=== PATIENT | female | born 1955 | race Caucasian/White ===

== ENCOUNTER 2016-11-04 18:55 | Inpatient (IN) | payer MEDICARE, MEDICAID ==
[~2016-11-04] VITALS: Ht 162.6 cm; Wt 75.7 kg
[~2016-11-04 18:55] MED LIST: AMLO5TAB2 PO; ARIP1TAB11 PO; CLON0.5T PO; GABA300C5 PO; IBUP-232 PO; LAMO100T PO; LANTINJ SQ; LEVO50TA4 PO; LOPE2TAB3 PO; LOSA50TA PO; METO25TA3 PO; OMEP20TA PO; PRAV20TA2 PO; TOPA50TA7 PO; TRAM50TA PO; VICT18IN SQ; ZOFR4TAB3 SL
[2016-11-04 19:01] VITALS: BP 89/64; PULSE 89; RESP 20; TEMP 99.1; O2SAT 97
[2016-11-04] MEDS ORDERED: SODIUM CHLOR 0.9% 1000 ML INJ 1,000 ML IV ONE ×2 (19:30→20:00)
[2016-11-04] MEDS ORDERED: ONDANSETRON HCL 4 MG/2 ML VIAL IV PUSH ONE (19:30)
--- NOTE | 2016-11-04 19:36 | PD ---
HPI Chief Complaint: GI Complaint Time Seen by Provider: 19:15 Travel History International Travel<30 days: No Contact w/Intl Traveler<30days: No History of Present Illness HPI This 59-year-old female is complaining of vomiting and diarrhea. She has a history of gastroparesis and she thinks that this acting up. She has a history of diabetes. She also has history of bipolar his she says she's had about 5 bouts of diarrhea today. He has had several admissions for gastroparesis. She sees Dr. Trinity ROSADO Past Medical History Arthritis: Yes (JOINTS) Asthma: Yes Autoimmune Disease: No Blood Disorders: No Bipolar Disorder: Yes Anxiety: Yes Depression: Yes Heart Rhythm Problems: No Cancer: No Cardiac Catheterization: Yes Cardiovascular Problems: Yes High Cholesterol: Yes Chemotherapy: No Chest Pain: No Congestive Heart Failure: No COPD: No Cerebrovascular Accident: Yes (CVA R 1997) Coronary Artery Disease: Yes Diabetes: Yes Diminished Hearing: No Endocrine: Yes Gastrointestinal Disorders: Yes GERD: Yes Genitourinary: No Headaches: Yes (DAILY) Hepatitis: No Hiatal Hernia: Yes Heparin Induced Thrombocytopen: No Hypertension: Yes Immune Disorder: No Implanted Vascular Access Dvce: No Kidney Stones: Yes (PASSED 2, 2 EXTRACTED) Musculoskeletal: Yes Neurologic: Yes (DIABETIC COMA, DRANK 3 GALLONS ORANGE JUICE) Psychiatric: Yes Reproductive: No Respiratory: Yes (OCC INHALER USE) Immunizations Current: Yes (SHINGLES) Migraines: No Myocardial Infarction: No Radiation Therapy: No Renal Failure: No Seizures: No Sickle Cell Disease: No Sleep Apnea: No Thyroid Disease: Yes Ulcer: No Menopausal: Yes Past Surgical History Abdominal Surgery: Yes (UMBILICAL HERNIA REPAIR,CHOLECYSTECTOMY) AICD: No Arteriovenous Shunt: No Cardiac Surgery: No Cholecystectomy: Yes Ear Surgery: No Endocrine Surgery: No Eye Surgery: Yes Genitourinary Surgery: Yes (2 KIDNEY STONE EXTRACTIONS) Gynecologic Surgery: Yes (HYSTERECTOMY) Hysterectomy: Yes Insulin Pump: No Joint Replacement: No Neurologic Surgery: No Oral Surgery: No Pacemaker: No Thoracic Surgery: No Other Surgery: Yes Social History Alcohol Use: No (DENIES) Tobacco Use: Yes Substance Use: No Allergies-Medications (Allergen,Severity, Reaction): Coded Allergies: Codeine (Verified Allergy, Intermediate, HIVES, 11/04/16) Prednisone (Verified Adverse Reaction, Severe, 11/04/16) INCREASES BLOOD GLUCOSE Reported Meds & Prescriptions Reported Meds & Active Scripts Active Lantus Solostar Pen Inj (Insulin Glargine) 300 Unit/3 Ml Pen 50 Units SQ HS Tramadol (Tramadol HCl) 50 Mg Tab 1-3 Tab PO Q8H PRN Take 1-3 tablets at night as needed for pain. Before physical therapy, take 2-3 tablets to prevent pain during therapy. No more than 6 tablets in 24 hours. Loperamide (Loperamide HCl) 2 Mg Tab 2 Mg PO DIRECTED PRN One tablet after each loose stool. Not to exceed 8 tablets per day. Zofran Odt (Ondansetron Odt) 4 Mg Tab 4 Mg SL Q8HR PRN May substitute non-ODT form. Reported Victoza Inj (Liraglutide Inj) 18 Mg/3 Ml Pen 1.8 Mg SQ DAILY Amlodipine (Amlodipine Besylate) 5 Mg Tab 5 Mg PO DAILY Metoprolol Tartrate 25 Mg Tab 0.5 Tab PO BID Topamax (Topiramate) 50 Mg Tab 50 Mg PO BID Lamotrigine 100 Mg Tab 100 Mg PO DAILY Gabapentin 300 Mg Cap 300 Mg PO TID Levothyroxine (Levothyroxine Sodium) 50 Mcg Tab 50 Mcg PO DAILY Pravastatin 20 Mg Tab 20 Mg PO DAILY Losartan (Losartan Potassium) 50 Mg Tab 50 Mg PO DAILY Omeprazole 20 Mg Tab 20 Mg PO DAILY Aripiprazole 5 Mg Tab 5 Mg PO DAILY Review of Systems General / Constitutional: No: Fever, Chills Eyes: No: Diploplia HENT: No: Headaches, Vertigo Cardiovascular: No: Chest Pain or Discomfort Respiratory: No: Cough Gastrointestinal: Positive: Nausea, Vomiting, Diarrhea, Abdominal Pain Genitourinary: No: Frequency Skin: No Rash Physical Exam Narrative GENERAL: Well-developed female SKIN: Warm and dry. HEAD: Atraumatic. Normocephalic. EYES: Pupils equal and round. No scleral icterus. No injection or drainage. ENT: No nasal bleeding or discharge. Mucous membranes pink and moist. NECK: Trachea midline. No JVD. CARDIOVASCULAR: Regular rate and rhythm. No murmur appreciated. RESPIRATORY: No accessory muscle use. Clear to auscultation. Breath sounds equal bilaterally. GASTROINTESTINAL: Abdomen soft, there is mild distention. There is some tenderness without guarding. Bowel sounds are diminished MUSCULOSKELETAL: No obvious deformities. No clubbing. No cyanosis. No edema. NEUROLOGICAL: Awake and alert. No obvious cranial nerve deficits. Motor grossly within normal limits. Normal speech. PSYCHIATRIC: Appropriate mood and affect; insight and judgment normal. Data Data Last Documented VS Vital Signs Date Time Temp Pulse Resp B/P Pulse Ox O2 Delivery O2 Flow Rate FiO2 11/04/16 20:40 14 11/04/16 19:26 97 Room Air 11/04/16 19:01 99.1 89 89/64 Orders Complete Blood Count With Diff (11/04/16 19:21) Comprehensive Metabolic Panel (11/04/16 19:21) Urinalysis - C+S If Indicated (11/04/16 19:21) Sodium Chlor 0.9% 1000 Ml Inj (Ns 1000 M (11/04/16 19:30) Ondansetron Inj (Zofran Inj) (11/04/16 19:30) Sodium Chlor 0.9% 1000 Ml Inj (Ns 1000 M (11/04/16 20:00) Hydromorphone Pf Inj (Dilaudid Pf Inj) (11/04/16 20:00) Prochlorperazine Inj (Compazine Inj) (11/04/16 20:15) Lipase (11/04/16 19:35) Ct Abd/Pel W/O Iv Contrast (11/04/16 20:03) Labs Laboratory Tests Test 11/04/16 11/04/16 19:35 22:14 White Blood Count 7.8 TH/MM3 Red Blood Count 4.10 MIL/MM3 Hemoglobin 10.9 GM/DL Hematocrit 33.9 % Mean Corpuscular Volume 82.7 FL Mean Corpuscular Hemoglobin 26.6 PG Mean Corpuscular Hemoglobin 32.2 % Concent Red Cell Distribution Width 13.3 % Platelet Count 142 TH/MM3 Mean Platelet Volume 9.6 FL Neutrophils (%) (Auto) 73.8 % Lymphocytes (%) (Auto) 20.1 % Monocytes (%) (Auto) 2.1 % Eosinophils (%) (Auto) 3.7 % Basophils (%) (Auto) 0.3 % Neutrophils # (Auto) 5.7 TH/MM3 Lymphocytes # (Auto) 1.6 TH/MM3 Monocytes # (Auto) 0.2 TH/MM3 Eosinophils # (Auto) 0.3 TH/MM3 Basophils # (Auto) 0.0 TH/MM3 CBC Comment DIFF FINAL Differential Comment Sodium Level 140 MEQ/L Potassium Level 4.0 MEQ/L Chloride Level 108 MEQ/L Carbon Dioxide Level 23.2 MEQ/L Anion Gap 9 MEQ/L Blood Urea Nitrogen 15 MG/DL Creatinine 1.40 MG/DL Estimat Glomerular Filtration 38 ML/MIN Rate Random Glucose 242 MG/DL Calcium Level 8.9 MG/DL Total Bilirubin 0.3 MG/DL Aspartate Amino Transf 30 U/L (AST/SGOT) Alanine Aminotransferase 36 U/L (ALT/SGPT) Alkaline Phosphatase 140 U/L Total Protein 7.0 GM/DL Albumin 3.4 GM/DL Lipase 262 U/L Urine pH 7.5 Urine Protein NEG mg/dL Urine Glucose (UA) 100 mg/dL Urine Ketones NEG mg/dL Urine Occult Blood NEG Urine Nitrite POS Urine Bilirubin NEG Urine Leukocyte Esterase MOD MDM Medical Decision Making Medical Screen Exam Complete: Yes Emergency Medical Condition: Yes Medical Record Reviewed: Yes Differential Diagnosis Differential includes gastroparesis, ileus, bowel obstruction Narrative Course CT is read as showing minimal dilatation of proximal small bowel relative to distal without evidence of obstruction. This is consistent with mild ileus patient is given IV fluids and symptomatic treatment. She is still complaining of nausea and pain. Diagnosis Primary Impression: Gastroparesis Additional Impression: Ileus Admitting Information Admitting Physician Requests: Peter Gutierrez MD Nov 04, 2016 19:36
[2016-11-04 19:41] LABS: AUTOMATED NEUTROPHIL # 5.7 TH/MM3 (1.8-7.7); BASOPHIL % 0.3 % (0.0-2.0); EOSINOPHIL # 0.3 TH/MM3 (0-0.4); EOSINOPHIL % 3.7 % (0.0-4.0); HEMATOCRIT 33.9 % (35.0-46.0); HEMO FLAGS DIFF FINAL; LYMPH % 20.1 % (9.0-44.0); LYMPHOCYTE # 1.6 TH/MM3 (1.0-4.8); MEAN CELL VOLUME 82.7 FL (80.0-100.0); MEAN CORPUSCULAR HEMOGLOBIN 26.6 PG (27.0-34.0); MEAN CORPUSCULAR HGB CONC 32.2 % (32.0-36.0); MONO % 2.1 % (0.0-8.0); NEUT % 73.8 % (16.0-70.0); PLATELET COUNT 142 TH/MM3 (150-450); RED CELL DISTRIBUTION WIDTH 13.3 % (11.6-17.2); WHITE BLOOD COUNT 7.8 TH/MM3 (4.0-11.0)
[2016-11-04 19:50] LABS: CHLORIDE 108 MEQ/L (98-107); SODIUM (NA) 140 MEQ/L (136-145)
[2016-11-04 19:53] LABS: ANION GAP 9 MEQ/L (5-15); BICARBONATE 23.2 MEQ/L (21.0-32.0); BLOOD UREA NITROGEN 15 MG/DL (7-18)
[2016-11-04 19:56] LABS: ALT (GPT) 36 U/L (10-53); AST (GOT) 30 U/L (15-37); GLOMERULAR FILTRATION RATE 38 ML/MIN (>89)
[2016-11-04 19:58] LABS: TOTAL BILIRUBIN ADULT 0.3 MG/DL (0.2-1.0)
[2016-11-04 19:59] LABS: ALKALINE PHOSPHATASE 140 U/L (45-117)
[2016-11-04] MEDS ORDERED: HYDROmorphone HCL PF 1 MG/ML VIAL IV PUSH ONE (20:00)
[2016-11-04] MEDS ORDERED: PROCHLORPERAZINE INJ 10 MG/2 ML VIAL IVS ONE (20:15)
[2016-11-04 21:30] VITALS: PULSE 86; RESP 15; O2SAT 94
--- NOTE | 2016-11-04 22:25 | RADHPO ---
EXAM DATE/TIME: 11/04/2016 20:58 [facility] COMPARISON: No previous studies available for comparison. INDICATIONS : Vomiting and diarrhea. ORAL CONTRAST: No oral contrast ingested. RADIATION DOSE: 23.96 CTDIvol (mGy) MEDICAL HISTORY : Gastroparesis. Hernia, hiatal. Gastroesophageal reflux disease.Diabetes. Hypertension. Renal stones. SURGICAL HISTORY : Umbilical hernia repair. Cholecystectomy. ENCOUNTER: Initial ACUITY: 1 day PAIN SCALE: 6/10 LOCATION: Abdomen. TECHNIQUE: Volumetric scanning of the abdomen and pelvis was performed. Using automated exposure control and ad justment of the mA and/or kV according to patient size, radiation dose was kept as low as reasonably achievable to obtain optimal diagnostic quality images. FINDINGS: There is dependent atelectasis at both lung bases. No acute findings in the liver, spleen, adrenals, kidneys or pancreas. Previous cholecystectomy. Left renal cortical atrophy. There is previous ventral hernia repair in the anterior abdominal wall. Minimal dilatation of proximal small bowel relative to distal this could be an ileus. No definite obstruction. No free air or free fluid. CONCLUSION: 1. Minimal dilatation of proximal small bowel relative to distal but without definite evidence for ob struction. This could be a mild ileus. No free fluid or free air. Previous ventral hernia repair. Jim Hwang MD on November 04, 2016 at 22:19 Board Certified Radiologist. This report was verified electronically.
[2016-11-04 22:28] LABS: BLOOD, URINE NEG (NEG); GLUCOSE,URINE 100 mg/dL (NEG); KETONE, URINE NEG (NEG); PH, URINE 7.5 (5.0-8.5)
[2016-11-04 22:29] LABS: NITRITE,URINE POS (NEG)
[2016-11-04 22:34] LABS: BACTERIA, URINE MOD /hpf; COMMENT (UR) CULTURE INDICATED; CULTURE IF INDICATED CULTURE INDICATED; METHOD OF COLLECTION VOIDED; URINE COLOR YELLOW (YELLW/STRAW)
[2016-11-04] MEDS: SODIUM CHLOR 0.9% 1000 ML INJ 1,000 ML IV SCH (23:45)
[2016-11-04] MEDS ORDERED: METOCLOPRAMIDE HCL 10 MG/2 ML VIAL IV PUSH ONE (23:45)
[2016-11-05] VITALS (8 sets, daily range): BP systolic 84–100; BP diastolic 56–66; PULSE 74–90; RESP 15–20; TEMP 97.1–98.9; O2SAT 91–97
[2016-11-05] MEDS ORDERED: ONDANSETRON HCL 4 MG/2 ML VIAL IV PUSH PRN
[2016-11-05] MEDS: ERYTHROMYCIN IV SCH ×5 (00:32→23:34)
[2016-11-05] MEDS: SODIUM CHLOR 0.9% IV SCH ×5 (00:32→23:34)
[2016-11-05] MEDS: traMADol HCL 50 MG TAB PO PRN (01:18)
[2016-11-05] MEDS: MORPHINE SULFATE 4 MG/ML INJ IV PRN ×4 (02:40→22:17)
[2016-11-05] MEDS: SODIUM CHLOR 0.9% 1000 ML INJ 1,000 ML IV SCH ×4 (04:45→21:09)
[2016-11-05] MEDS: LEVOTHYROXINE SODIUM 50 MCG TAB PO SCH (06:03)
[2016-11-05] MEDS: GABAPENTIN 300 MG CAP PO SCH ×3 (07:13→17:16)
[2016-11-05] MEDS: METOPROLOL TARTRATE 25 MG TAB PO SCH ×3 (07:14→23:34)
[2016-11-05] MEDS: amLODIPine BESYLATE 5 MG TAB PO SCH (07:14)
[2016-11-05] MEDS: LOSARTAN 50 MG TAB PO SCH (07:14)
[2016-11-05] MEDS: TOPIRAMATE 25 MG TAB PO SCH ×2 (07:14→23:27)
[2016-11-05] MEDS: lamoTRIgine 100 MG TAB PO SCH (07:14)
[2016-11-05] MEDS: PANTOPRAZOLE SOD 20 MG DELAYED RELEASE TAB PO SCH (07:14)
[2016-11-05] MEDS: PRAVASTATIN SOD 20 MG TAB PO SCH (07:15)
[2016-11-05] MEDS ORDERED: LIRAGLUTIDE 1.8 MG SQ SCH (09:00)
[2016-11-05] MEDS ORDERED: LEVOFLOXACIN 500 MG PREMIX INJ 100 ML IV ONE (10:00)
[2016-11-05] MEDS: ARIPiprazole 5 MG TAB PO SCH (10:20)
[2016-11-05] MEDS ORDERED: PROMETHAZINE HCL 25 MG SUPP RECTAL PRN (11:00)
[2016-11-05 13:25] LABS: TRANSFERRIN IRON PROFILE 219 MG/DL (200-360)
[2016-11-05 13:26] LABS: FERRITIN 55 NG/ML (8-252)
[2016-11-05] MEDS: ONDANSETRON HCL 4 MG/2 ML VIAL IV PUSH SCH ×2 (14:00→22:16)
--- NOTE | 2016-11-05 14:06 | MH ---
cc: CJ CHAVZE MD DATE OF ADMISSION: 11/05/2016 DATE OF : 1955, AGE 61 CHIEF COMPLAINT Abdominal pain, nausea, vomiting, diarrhea. HISTORY OF PRESENT ILLNESS This is a 61-year-old female with a past medical and surgical history significant for arthritis, asthma. History of bipolar disorder, anxiety, depression. History of cardiac catheterization and coronary artery disease, hyperlipidemia. History of cerebrovascular accident in the past right-sided which has totally resolved, coronary artery disease, diabetes mellitus. History of diabetic gastroparesis, GERD, headache, and has a history of kidney stones which were extracted, diabetic coma. Also has a history of umbilical hernia repair and cholecystectomy, two kidney stone extraction surgeries, hysterectomy. Came to the ER at [facility] complaining of nausea, vomiting, abdominal pain and diarrhea. Her diarrhea has resolved. She said it was watery and she had no abnormal stool. She has a history of gastroparesis and thinks that this is acting up and she is still vomiting. She denies any chest pain but has some cough with yellow phlegm. Has frequent painful urination, burning urination symptom but denies any blood in the urine. She denies any blood in the stool. She denies any headache at the moment. She denies any leg pain, calf pain or chest pressure. She has some abdominal pain which is diffuse about 2-3/10, no radiation, no aggravating or relieving factor. Other than that, nothing significant. PAST MEDICAL AND SURGICAL HISTORY As dictated above. SOCIAL HISTORY Denies drinking. She smokes. Denies any drug use. Lives at home. FAMILY HISTORY Family history is significant for diabetes mellitus, hypertension. ALLERGIES CODEINE - CAUSES HIVES. PREDNISONE. MEDICATIONS 1. Lantus 50 units subcutaneous h.s. 2. Tramadol 50 mg q.8 hours. 3. [place] 2 mg p.o. as directed. 4. Zofran oral disintegrated tablet sublingual q.8 hours p.r.n. nausea, vomiting. 5. Victoza injection 1.8 mg subcutaneous daily. 6. Amlodipine Besylate 5 mg p.o. daily. 7. Metoprolol 25 mg twice a day. 8. Topamax 50 mg p.o. b.i.d. 9. Lamotrigine 100 mg p.o. daily. 10. Gabapentin 300 mg p.o. daily. 11. Levothyroxine 50 mcg p.o. daily. 12. Pravastatin 20 mg p.o. daily. 13. Losartan 50 mg p.o. daily. 14. Omeprazole 20 mg p.o. daily. 15. Aripiprazole 5 mg p.o. daily. REVIEW OF SYSTEMS All review of systems are negative except for abdominal pain, vomiting, cough, congestion, frequent painful urination, burning urination. PHYSICAL EXAMINATION GENERAL: This is a 61-year-old female laying on the bed and not in acute distress. VITAL SIGNS: Temperature 97.5, heart rate 78, respiration 15, blood pressure 97/60, O2 saturation 92% on room air. HEENT: Normocephalic, atraumatic. EOMI. PERRL. Oral mucosa moist. NECK: Supple. No visible thyromegaly or neck mass. Trachea central. CARDIOVASCULAR: Regular rate and rhythm. RESPIRATORY: Clear to auscultation bilaterally. ABDOMEN: Soft, mild diffuse tenderness. Bowel sounds audible. EXTREMITIES: No cyanosis or clubbing. Full range of motion of all extremities. NEUROLOGIC: Awake, alert, oriented x4. No focal deficits. SKIN: Warm and dry. PSYCHIATRIC: The patient is cooperative. Mood and affect are normal. LABORATORY DATA CBC is totally unremarkable except for a hemoglobin of 10.9 low, hematocrit 33.9 low, MCH is 26.6 low, platelet count 142 low, neutrophils 73.8 high. BMP totally unremarkable except for chloride 108 high, creatinine is high at 1.40, GFR 38 low, glucose random 242 high, alkaline phosphatase 140 high. Urine examination shows positive nitrite, leukocyte esterase moderate, 3-5 WBCs, culture indicated. Urine culture done and report is still pending. IMAGING CT abdomen and pelvis was done and shows minimal dilatation of the proximal small bowel relative to distal but without definitive evidence for obstruction. This could be a mild ileus. No free fluid or free air. Previous ventral hernia repair. ASSESSMENT AND PLAN 1. This is a 61-year-old female who came to the ER diagnosed with nausea, vomiting, diarrhea, most likely gastroenteritis. The patient also has a history of diabetic gastroparesis too. GI consulted. The patient is also on erythromycin IV. 2. Urinary tract infection. I started the patient on Levaquin IV daily. 3. History of hypertension. Continue home medication. Hold all blood pressure medicine if systolic blood pressure less than 120. 4. History of diabetes mellitus. The patient on a clear liquid diet. I will keep the patient on insulin sliding scale, holding all home medication. 5. History of hyperlipidemia. Continue with pravastatin 20 mg p.o. daily. 6. History of headache. Continue with Topamax. 7. History of diabetic neuropathy. Continue with gabapentin. 8. History of hypothyroidism. Continue with levothyroxine. 9. Nausea, vomiting. The patient on Zofran. 10. History of arthritis. 11. History of asthma. 12. History of anxiety. 13. History of stroke in the past. 14. History of kidney stones in the past. 15. DVT prophylaxis. SCDs. 16. GI prophylaxis. Protonix 40 mg IV daily. We are going to monitor the patient on a daily basis and make recommendation on a daily basis. Cj Chavez MD EA/KASI /9:34 AM /12:57 PM
--- NOTE | 2016-11-05 16:24 | MB ---
cc: TANGELA HARE MD, JUAN DATE OF CONSULTATION: 11/05/2016 DATE OF : 1955 REASON FOR CONSULTATION Gastroparesis. BRIEF MEDICAL HISTORY Ms. Stephen is a pleasant 59-year-old lady with a past medical history significant for diabetes, with known history of gastroparesis, gastroesophageal reflux disease, hypertension, diabetic neuropathy, and hypothyroidism that presented to the hospital with complaints of nausea, vomiting and diarrhea for the past four days. The patient is known to our GI practice, she follows with Dr. Petersen for management of chronic GI symptoms. She was diagnosed with diabetic gastroparesis for which she takes bethanechol four times daily which helps. She also had a recent endoscopy which showed some gastric erosions and gastritis for which she takes a PPI 20 mg p.o. daily. A second attempt to complete a colonoscopy was unsuccessful because of poor prep. The patient did see Dr. Petersen earlier this month for complaints of loose stools and management of chronic GI conditions. She reports that in the past four days she had worsening diarrhea having loose stools every few hours and unable to keep anything down due to frequent nausea and vomiting in the last four days. This associated to some midabdominal pain. She reports chills but no fevers. She has had previous admissions for exacerbation of her gastroparesis symptoms. Admission lab work showed mild anemia with a hemoglobin of 10.9 and a creatinine of 1.4. Imaging studies showed evidence of minimal dilation of the proximal small bowel on CT abdomen without any evidence of obstruction, concerning for mild ileus. GI being consulted for evaluation of gastroparesis. PAST MEDICAL HISTORY Significant for - 1. Diabetes. 2. Diabetic gastroparesis. 3. Peripheral neuropathy. 4. Hypertension. 5. Hypothyroidism. 6. Gastroesophageal reflux disease,. 7. Gastritis. 8. History of colonic polyps. PAST SURGICAL HISTORY 1. Umbilical hernia repair. 2. Cholecystectomy. 3. Kidney stone extraction. 4. Hysterectomy. SOCIAL HISTORY Denies any alcohol or drug use, she does smoke. ALLERGIES SHE IS ALLERGIC TO CODEINE AND PREDNISONE. MEDICATIONS 1. Victoza 18 mg subcutaneous daily. 2. Amlodipine 5 mg p.o. daily. 3. Metoprolol 25 mg p.o. b.i.d. 4. Topamax 50 mg p.o. b.i.d. 5. Lamotrigine 100 mg p.o. daily. 6. Gabapentin 300 mg t.i.d. 7. Synthroid 50 mcg daily. 8. Pravastatin 20 mg p.o. daily. 9. Losartan 50 mg p.o. daily. 10. Omeprazole 20 mg p.o. daily. 11. Aripiprazole 5 mg p.o. daily. 12. Bethanechol 25 mg p.o. q.6 hours. FAMILY HISTORY No family history of colon cancer. REVIEW OF SYSTEMS As per HPI. Positive for nausea, vomiting, diarrhea, abdominal pain. Otherwise, 14-point medical review of systems negative. PHYSICAL EXAMINATION VITAL SIGNS: Temperature 97.5, heart rate of 78, respiratory rate 15, blood pressure 97/60, satting 92% on room air. GENERAL: She is an overweight female in no acute distress, lying comfortably in bed. HEENT: Normocephalic, atraumatic. Extraocular movements are intact. Pupils equal, round, reactive to light and accommodation. Nonicteric sclerae. Moist mucosa. No oral lesions. NECK: Supple. No JVD. No lymphadenopathy. CARDIOVASCULAR: Regular rhythm and rate. S1, S2 normal. No murmurs or rubs. PULMONARY: Clear to auscultation bilaterally. No wheezes. No rhonchi. ABDOMEN: Obese, soft, mildly tender to palpitation in the periumbilical area. Bowel sounds are decreased in all quadrants. EXTREMITIES: No cyanosis or edema. Pulses 2+ bilaterally. NEUROLOGIC: She is alert, oriented x3. Cranial nerves are intact. Strength 5/5 throughout. No focal deficits. LABORATORY WORK White blood cell 7.8, hemoglobin of 10.9, hematocrit of 32.9, platelet count of 142. Sodium 140, potassium 4, chloride 108, creatinine 1.4, total bili 0.3, AST 30, ALT 36, alkaline phosphatase 140, total protein 7, albumin 3.4, lipase of 262. Urine was positive for nitrates, leukocyte esterase and moderate bacteria. IMAGING STUDIES CT of the abdomen showed minimal dilation of proximal small bowel without definite areas of obstruction, possible mild ileus. ASSESSMENT AND PLAN Ms. Stephen is a pleasant 61-year-old lady with known history of diabetes with complications such as gastroparesis and peripheral neuropathy, as well as a history of GERD and gastritis who presents to the hospital with a four-day history of nausea, vomiting and diarrhea. CT abdomen showing mild ileus in the proximal small bowel. PLAN 1. Nausea, vomiting, diarrhea. Concerns for possible gastroenteritis based on symptoms and mild ileus noted on imaging. Continue supportive care with IV hydration, symptomatic treatment with antiemetics, would recommend Zofran 8mg IV q.8 hours scheduled and Phenergan 25 mg per rectum as needed. We will plan to send stool studies to rule out infectious causes including C. Diff, stool culture and fecal WBC's. She has been started on levofloxacin for a possible UTI. Other possibilities are exacerbation of her gastroparesis for which she has been started on erythromycin. We will also resume her Bethanechol that she takes as an outpatient. I agree with clear liquid diet and can advance diet as tolerated. Recommend small frequent meals low in lipids and fiber. 2. Anemia. The patient with mild normocytic anemia, no GI bleeding reported. We will send iron studies. She did recently have an upper endoscopy with some gastritis and erosions for which she takes a PPI. Colonoscopy could not be completed due to poor prep. There are plans to repeat a colonoscopy as an outpatient. 3. Erosive gastritis. The patient to continue PPI as prescribed, avoid NSAIDs. We would like to thank Dr. Hare this consultation and letting us participate in the case of Ms. Stephen, we will follow along with you. Please call us with any question or concerns. MD ALEKSANDRA Middleton/KASI /10:59 AM /3:09 PM ANGELLA
[2016-11-05] MEDS: BETHANECHOL CHL 25 MG TAB PO SCH ×3 (17:14→23:27)
[2016-11-05] MEDS ORDERED: INSULIN DETEMIR 100 UNITS/ML VIAL SQ SCH (21:00)
[2016-11-06] VITALS: BP 108/70; PULSE 93; RESP 16; TEMP 98; O2SAT 96
[2016-11-06] MEDS: MORPHINE SULFATE 4 MG/ML INJ IV PRN ×3 (02:09→10:39)
[2016-11-06] MEDS: SODIUM CHLOR 0.9% 1000 ML INJ 1,000 ML IV SCH ×5 (02:10→20:24)
[2016-11-06] MEDS: traMADol HCL 50 MG TAB PO PRN ×2 (03:58→18:36)
[2016-11-06 04:00] VITALS: BP 110/73; PULSE 90; RESP 18; TEMP 98.1; O2SAT 97
[2016-11-06] MEDS: BETHANECHOL CHL 25 MG TAB PO SCH ×3 (04:31→17:00)
[2016-11-06] MEDS: ONDANSETRON HCL 4 MG/2 ML VIAL IV PUSH SCH ×3 (04:32→20:24)
[2016-11-06] MEDS: LEVOTHYROXINE SODIUM 50 MCG TAB PO SCH (04:32)
[2016-11-06] MEDS: SODIUM CHLOR 0.9% IV SCH (04:36)
[2016-11-06] MEDS: ERYTHROMYCIN IV SCH (04:36)
[2016-11-06 07:32] LABS: AUTOMATED NEUTROPHIL # 2.3 TH/MM3 (1.8-7.7); BASOPHIL # 0.2 TH/MM3 (0-0.2); BASOPHIL % 2.9 % (0.0-2.0); EOSINOPHIL # 0.2 TH/MM3 (0-0.4); EOSINOPHIL % 4.5 % (0.0-4.0); HEMATOCRIT 31.1 % (35.0-46.0); HEMO FLAGS DIFF FINAL; LYMPH % 38.3 % (9.0-44.0); MEAN CELL VOLUME 85.2 FL (80.0-100.0); MEAN CORPUSCULAR HEMOGLOBIN 27.8 PG (27.0-34.0); MEAN CORPUSCULAR HGB CONC 32.6 % (32.0-36.0); MONO % 10.2 % (0.0-8.0); NEUT % 44.1 % (16.0-70.0); PLATELET COUNT 122 TH/MM3 (150-450); RED BLOOD COUNT 3.65 MIL/MM3 (4.00-5.30); RED CELL DISTRIBUTION WIDTH 13.6 % (11.6-17.2); WHITE BLOOD COUNT 5.2 TH/MM3 (4.0-11.0)
[2016-11-06 07:59] LABS: ALKALINE PHOSPHATASE 127 U/L (45-117); ALT (GPT) 38 U/L (10-53); ANION GAP 10 MEQ/L (5-15); AST (GOT) 34 U/L (15-37); BICARBONATE 20.3 MEQ/L (21.0-32.0); BLOOD UREA NITROGEN 7 MG/DL (7-18); CHLORIDE 118 MEQ/L (98-107); GLOMERULAR FILTRATION RATE 56 ML/MIN (>89); SODIUM (NA) 148 MEQ/L (136-145); TOTAL BILIRUBIN ADULT 0.2 MG/DL (0.2-1.0)
[2016-11-06 08:00] VITALS: BP 92/62; PULSE 85; RESP 16; TEMP 98.2; O2SAT 99
[2016-11-06] MEDS: lamoTRIgine 100 MG TAB PO SCH (08:52)
[2016-11-06] MEDS: LOSARTAN 50 MG TAB PO SCH (08:52)
[2016-11-06] MEDS: ARIPiprazole 5 MG TAB PO SCH (08:52)
[2016-11-06] MEDS: amLODIPine BESYLATE 5 MG TAB PO SCH (08:52)
[2016-11-06] MEDS: METOPROLOL TARTRATE 25 MG TAB PO SCH ×3 (08:52→20:40)
[2016-11-06] MEDS: TOPIRAMATE 25 MG TAB PO SCH ×2 (08:52→20:26)
[2016-11-06] MEDS: GABAPENTIN 300 MG CAP PO SCH ×3 (08:52→17:00)
[2016-11-06] MEDS: PANTOPRAZOLE SOD 20 MG DELAYED RELEASE TAB PO SCH (08:52)
[2016-11-06] MEDS: PRAVASTATIN SOD 20 MG TAB PO SCH (08:52)
[2016-11-06] MEDS: LEVOFLOXACIN/DEXTROSE 250 MG/50 ML IV SCH (08:53)
--- NOTE | 2016-11-06 09:50 | HHI.PR ---
Subjective History of Present Illness Patient still c/o abdominal pain on pain medicine d/w RN Trinidad at bed side. nothing Acute. Review of Systems GI/Abdomen GI/Abdominal Exam: Abdominal Pain Vitals/Results Intake & Output 11/05/16 11/05/16 11/06/16 15:00 23:00 07:00 Intake Total 2800 ml Output Total 300 ml 1650 ml Balance -300 ml 1150 ml IV Total 2800 ml Output Urine Total 300 ml 1650 ml # Bowel Movements 0 Vital Signs Vital Signs Date Time Temp Pulse Resp B/P Pulse Ox O2 Delivery O2 Flow Rate FiO2 11/06/16 08:00 98.2 85 16 92/62 99 11/06/16 04:00 98.1 90 18 110/73 97 11/06/16 00:00 98.0 93 16 108/70 96 11/05/16 22:45 20 11/05/16 20:00 98.9 90 18 100/64 96 11/05/16 17:00 97.1 83 16 98/60 97 11/05/16 13:18 97.9 74 20 84/56 95 CBC/BMP: 11/06/16 0705 11/06/16 0705 Lab Results Laboratory Tests Test 11/06/16 07:05 White Blood Count 5.2 TH/MM3 Red Blood Count 3.65 MIL/MM3 Hemoglobin 10.1 GM/DL Hematocrit 31.1 % Mean Corpuscular Volume 85.2 FL Mean Corpuscular Hemoglobin 27.8 PG Mean Corpuscular Hemoglobin 32.6 % Concent Red Cell Distribution Width 13.6 % Platelet Count 122 TH/MM3 Mean Platelet Volume 9.5 FL Neutrophils (%) (Auto) 44.1 % Lymphocytes (%) (Auto) 38.3 % Monocytes (%) (Auto) 10.2 % Eosinophils (%) (Auto) 4.5 % Basophils (%) (Auto) 2.9 % Neutrophils # (Auto) 2.3 TH/MM3 Lymphocytes # (Auto) 2.0 TH/MM3 Monocytes # (Auto) 0.5 TH/MM3 Eosinophils # (Auto) 0.2 TH/MM3 Basophils # (Auto) 0.2 TH/MM3 CBC Comment DIFF FINAL Differential Comment Sodium Level 148 MEQ/L Potassium Level 4.0 MEQ/L Chloride Level 118 MEQ/L Carbon Dioxide Level 20.3 MEQ/L Anion Gap 10 MEQ/L Blood Urea Nitrogen 7 MG/DL Creatinine 1.00 MG/DL Estimat Glomerular Filtration 56 ML/MIN Rate Random Glucose 82 MG/DL Calcium Level 8.3 MG/DL Total Bilirubin 0.2 MG/DL Aspartate Amino Transf 34 U/L (AST/SGOT) Alanine Aminotransferase 38 U/L (ALT/SGPT) Alkaline Phosphatase 127 U/L Total Protein 6.0 GM/DL Albumin 2.7 GM/DL Physical Exam General General Appearance: Well Developed, Well Nourished, No Acute Distress, Comfortable Eyes Eye Exam: Pupils Equal, Pupils Reactive, Sclera White, Extraocular Movement Intact Throat Throat Exam: Oral Mucosa [place] & Moist, Oral Pharynx Normal Neck Neck Exam: Neck Supple, Trachea Midline Pulmonary Resp Exam: Clear Bilaterally, Breath Sounds Equal, No Distress Cardiology CV Exam: Regular, Normal Sinus Rhythm Gastrointestinal/Abdomen GI Exam: Soft, Bowel Sounds Present GI Remarks mild diffuse tenderness. Musculoskeletal MS Exam: Normal Gait Integumentary Skin Exam: Clear, Warm, Dry, Intact Extremeties Extremities Exam: No Edema Neurologic Neuro Exam: Alert, Awake, Oriented, Speech Clear, Moving All Extremities, No Focal Deficits VTE Prophylaxis VTE Prophylaxis Meds: Heparin PUD Prophylasis PUD Prophylaxis: Protonix Assessment/Plan Assessment/Plan ASSESSMENT AND PLAN 1. This is a 61-year-old female who came to the ER diagnosed with nausea, vomiting, diarrhea, most likely gastroenteritis. The patient also has a history of diabetic gastroparesis too. GI input noted. 2. Urinary tract infection. patient on Levaquin IV daily. 3. History of hypertension. Continue home medication. Hold all blood pressure medicine if systolic blood pressure less than 120. 4. History of diabetes mellitus. The patient on a clear liquid diet. keep the patient on insulin sliding scale, holding all home medication. 5. History of hyperlipidemia. Continue with pravastatin 20 mg p.o. daily. 6. History of headache. Continue with Topamax. 7. History of diabetic neuropathy. Continue with gabapentin. 8. History of hypothyroidism. Continue with levothyroxine. 9. Nausea, vomiting. The patient on Zofran. 10. History of arthritis. 11. History of asthma. 12. History of anxiety. 13. History of stroke in the past. 14. History of kidney stones in the past. 15. DVT prophylaxis. SCDs. 16. GI prophylaxis. Protonix 40 mg IV daily. Check CBC with diff CMP in AM. We are going to monitor the patient on a daily basis and make recommendation on a daily basis. Discussed Condition with: Patient Cj Hare MD Nov 06, 2016 09:50
--- NOTE | 2016-11-06 10:34 | HHI.GIFU ---
Subjective Remarks Pt doing better. No new episodes of emesis or diarrhea reported. Nausea resolved. Still c/o lower abdominal sharp pain. Objective Vitals I&O Vital Signs Date Time Temp Pulse Resp B/P Pulse Ox O2 Delivery O2 Flow Rate FiO2 11/06/16 08:00 98.2 85 16 92/62 99 11/06/16 04:00 98.1 90 18 110/73 97 11/06/16 00:00 98.0 93 16 108/70 96 11/05/16 22:45 20 11/05/16 20:00 98.9 90 18 100/64 96 11/05/16 17:00 97.1 83 16 98/60 97 11/05/16 13:18 97.9 74 20 84/56 95 I/O 11/05/16 11/05/16 11/05/16 11/06/16 11/06/16 11/06/16 07:00 15:00 23:00 07:00 15:00 23:00 Intake Total 3972 ml 2800 ml Output Total 450 ml 300 ml 1650 ml Balance 3522 ml -300 ml 1150 ml Intake Oral 240 ml IV Total 3732 ml 2800 ml Output Urine Total 450 ml 300 ml 1650 ml # Voids 1 # Bowel Movements 0 0 Laboratory Laboratory Tests Test 11/06/16 07:05 White Blood Count 5.2 Red Blood Count 3.65 Hemoglobin 10.1 Hematocrit 31.1 Mean Corpuscular Volume 85.2 Mean Corpuscular Hemoglobin 27.8 Mean Corpuscular Hemoglobin 32.6 Concent Red Cell Distribution Width 13.6 Platelet Count 122 Mean Platelet Volume 9.5 Neutrophils (%) (Auto) 44.1 Lymphocytes (%) (Auto) 38.3 Monocytes (%) (Auto) 10.2 Eosinophils (%) (Auto) 4.5 Basophils (%) (Auto) 2.9 Neutrophils # (Auto) 2.3 Lymphocytes # (Auto) 2.0 Monocytes # (Auto) 0.5 Eosinophils # (Auto) 0.2 Basophils # (Auto) 0.2 CBC Comment DIFF FINAL Differential Comment Sodium Level 148 Potassium Level 4.0 Chloride Level 118 Carbon Dioxide Level 20.3 Anion Gap 10 Blood Urea Nitrogen 7 Creatinine 1.00 Estimat Glomerular Filtration 56 Rate Random Glucose 82 Calcium Level 8.3 Total Bilirubin 0.2 Aspartate Amino Transf 34 (AST/SGOT) Alanine Aminotransferase 38 (ALT/SGPT) Alkaline Phosphatase 127 Total Protein 6.0 Albumin 2.7 Date/Time Procedure Status Source Growth 11/04/16 22:14 Urine Culture - Preliminary Resulted Urine Clean Catch Gram Negative Hao Physical Exam HEENT: Pupils round and reactive to light; normocephalic; atraumatic; no jaundice. Throat is clear. NECK: Neck is supple, no JVD, no lymphadenopathy. ABDOMEN: Soft, nondistended, tender to palpation in suprapubic area; no hepatosplenomegaly; bowel sounds are present in all four quadrants. EXTREMITIES: No clubbing, cyanosis, or edema. SKIN: Normal; no rash; no jaundice. 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 Assessment and Plan Assessment: (1) Persistent recurrent vomiting (2) Ileus (3) Gastroparesis Plan 1. Abdominal pain/Nausea, vomiting/diarrhea - mild ileus on CT, possible gastroenteritis, vs exacerbation of gastroparesis in the setting of UTI - diarrhea has resolved, will D/C c. diff order - continue antiemetics - abdominal pain may be secondary to UTI, will try Bentyl to see if it helps - continue gastroparesis management with Bethanechol, can DC erythromycin - advance diet 2. All other medical problems to be addressed by primary team Dale Robles MD Nov 06, 2016 10:34
[2016-11-06 12:00] VITALS: BP 85/58; PULSE 67; RESP 18; TEMP 97.2; O2SAT 97
[2016-11-06] MEDS: DICYCLOMINE HCL 20 MG TAB PO SCH ×3 (12:45→20:25)
[2016-11-06] MEDS ORDERED: SODIUM CHLORID 0.9% 500 ML INJ 500 ML IV ONE (15:30)
[2016-11-06 16:00] VITALS: BP 97/63; PULSE 73; RESP 19; TEMP 98.5; O2SAT 99
[2016-11-06] MEDS ORDERED: GLUCAGON 1 MG/ML VIAL OTHER PRN (18:30)
[2016-11-06] MEDS ORDERED: DEXTROSE 50% IN WATER 50 ML VIAL(D50) IV PUSH PRN (18:30)
[2016-11-06] MEDS ORDERED: PLEASE DISCONTINUE PREVIOUS SUPPLEMENTAL SCALE INSULIN ORDERS XX ONE (18:30)
[2016-11-06 20:00] VITALS: BP 104/74; PULSE 94; RESP 18; TEMP 95.9; O2SAT 98
[2016-11-06] MEDS: MEDIUM DOSE INSULIN NOVOLOG SUPPLEMENTAL SCALE SQ SCH (20:26)
[2016-11-06] MEDS: INSULIN DETEMIR 100 UNITS/ML VIAL SQ SCH (20:26)
[2016-11-06] MEDS ORDERED: ACETAMINOPHEN 325 MG TAB PO PRN (23:30)
[2016-11-07] VITALS: BP 114/77; PULSE 75; RESP 16; TEMP 97.9; O2SAT 98
[2016-11-07] MEDS: BETHANECHOL CHL 25 MG TAB PO SCH ×5 (00:19→23:50)
[2016-11-07] MEDS: traMADol HCL 50 MG TAB PO PRN ×4 (00:19→21:19)
[2016-11-07] MEDS: SODIUM CHLOR 0.9% 1000 ML INJ 1,000 ML IV SCH ×4 (03:44→16:41)
[2016-11-07] MEDS: LEVOTHYROXINE SODIUM 50 MCG TAB PO SCH (06:02)
[2016-11-07] MEDS: ONDANSETRON HCL 4 MG/2 ML VIAL IV PUSH SCH ×3 (06:03→21:17)
[2016-11-07] MEDS: MEDIUM DOSE INSULIN NOVOLOG SUPPLEMENTAL SCALE SQ SCH ×4 (06:04→21:27)
[2016-11-07 06:59] LABS: AUTOMATED NEUTROPHIL # 2.1 TH/MM3 (1.8-7.7); BASOPHIL # 0.1 TH/MM3 (0-0.2); BASOPHIL % 1.3 % (0.0-2.0); EOSINOPHIL # 0.3 TH/MM3 (0-0.4); EOSINOPHIL % 7.3 % (0.0-4.0); HEMATOCRIT 31.9 % (35.0-46.0); HEMO FLAGS DIFF FINAL; LYMPH % 41.2 % (9.0-44.0); MEAN CELL VOLUME 83.3 FL (80.0-100.0); MEAN CORPUSCULAR HEMOGLOBIN 26.5 PG (27.0-34.0); MEAN CORPUSCULAR HGB CONC 31.8 % (32.0-36.0); MONO % 6.2 % (0.0-8.0); PLATELET COUNT 134 TH/MM3 (150-450); RED BLOOD COUNT 3.83 MIL/MM3 (4.00-5.30); RED CELL DISTRIBUTION WIDTH 13.4 % (11.6-17.2); WHITE BLOOD COUNT 4.8 TH/MM3 (4.0-11.0)
[2016-11-07 07:14] LABS: CHLORIDE 116 MEQ/L (98-107); POTASSIUM 3.9 MEQ/L (3.5-5.1); SODIUM (NA) 145 MEQ/L (136-145)
[2016-11-07 07:20] LABS: ANION GAP 9 MEQ/L (5-15); BICARBONATE 20.5 MEQ/L (21.0-32.0); BLOOD UREA NITROGEN 8 MG/DL (7-18)
[2016-11-07 07:22] LABS: ALT (GPT) 34 U/L (10-53); AST (GOT) 21 U/L (15-37); GLOMERULAR FILTRATION RATE 56 ML/MIN (>89)
[2016-11-07 07:25] LABS: ALKALINE PHOSPHATASE 137 U/L (45-117)
[2016-11-07 07:27] LABS: TOTAL BILIRUBIN ADULT 0.1 MG/DL (0.2-1.0)
[2016-11-07 08:00] VITALS: BP 105/70; PULSE 79; RESP 20; TEMP 97.1; O2SAT 99
[2016-11-07] MEDS: LOSARTAN 50 MG TAB PO SCH (08:52)
[2016-11-07] MEDS: DICYCLOMINE HCL 20 MG TAB PO SCH ×4 (08:52→21:17)
[2016-11-07] MEDS: ARIPiprazole 5 MG TAB PO SCH (08:52)
[2016-11-07] MEDS: GABAPENTIN 300 MG CAP PO SCH ×3 (08:52→17:09)
[2016-11-07] MEDS: PANTOPRAZOLE SOD 20 MG DELAYED RELEASE TAB PO SCH (08:52)
[2016-11-07] MEDS: PRAVASTATIN SOD 20 MG TAB PO SCH (08:52)
[2016-11-07] MEDS: amLODIPine BESYLATE 5 MG TAB PO SCH (08:53)
[2016-11-07] MEDS: lamoTRIgine 100 MG TAB PO SCH (08:53)
[2016-11-07] MEDS: METOPROLOL TARTRATE 25 MG TAB PO SCH ×2 (08:53→21:17)
[2016-11-07] MEDS: TOPIRAMATE 25 MG TAB PO SCH ×2 (08:53→21:18)
--- NOTE | 2016-11-07 09:46 | HHI.PR ---
Subjective History of Present Illness Patient still c/o abdominal pain on pain medicine wants to increase the pain medicine dose.. nothing Acute. Recheck UA. Review of Systems GI/Abdomen GI/Abdominal Exam: Abdominal Pain Vitals/Results Intake & Output 11/06/16 11/06/16 11/07/16 15:00 23:00 07:00 Intake Total 3375 ml 1388 ml Balance 3375 ml 1388 ml Intake Oral 1920 ml IV Total 1455 ml 1388 ml # Voids 10 # Bowel Movements 4 Vital Signs Vital Signs Date Time Temp Pulse Resp B/P Pulse Ox O2 Delivery O2 Flow Rate FiO2 11/07/16 08:00 97.1 79 20 105/70 99 11/07/16 07:03 20 11/07/16 00:00 97.9 75 16 114/77 98 11/06/16 20:00 95.9 94 18 104/74 98 11/06/16 16:00 98.5 73 19 97/63 99 11/06/16 12:00 97.2 67 18 85/58 97 CBC/BMP: 11/07/16 0635 11/07/16 0635 Lab Results Laboratory Tests Test 11/07/16 06:35 White Blood Count 4.8 TH/MM3 Red Blood Count 3.83 MIL/MM3 Hemoglobin 10.1 GM/DL Hematocrit 31.9 % Mean Corpuscular Volume 83.3 FL Mean Corpuscular Hemoglobin 26.5 PG Mean Corpuscular Hemoglobin 31.8 % Concent Red Cell Distribution Width 13.4 % Platelet Count 134 TH/MM3 Mean Platelet Volume 9.6 FL Neutrophils (%) (Auto) 44.0 % Lymphocytes (%) (Auto) 41.2 % Monocytes (%) (Auto) 6.2 % Eosinophils (%) (Auto) 7.3 % Basophils (%) (Auto) 1.3 % Neutrophils # (Auto) 2.1 TH/MM3 Lymphocytes # (Auto) 2.0 TH/MM3 Monocytes # (Auto) 0.3 TH/MM3 Eosinophils # (Auto) 0.3 TH/MM3 Basophils # (Auto) 0.1 TH/MM3 CBC Comment DIFF FINAL Differential Comment Sodium Level 145 MEQ/L Potassium Level 3.9 MEQ/L Chloride Level 116 MEQ/L Carbon Dioxide Level 20.5 MEQ/L Anion Gap 9 MEQ/L Blood Urea Nitrogen 8 MG/DL Creatinine 1.00 MG/DL Estimat Glomerular Filtration 56 ML/MIN Rate Random Glucose 119 MG/DL Calcium Level 8.4 MG/DL Total Bilirubin 0.1 MG/DL Aspartate Amino Transf 21 U/L (AST/SGOT) Alanine Aminotransferase 34 U/L (ALT/SGPT) Alkaline Phosphatase 137 U/L Total Protein 6.2 GM/DL Albumin 2.9 GM/DL Microbiology Microbiology 11/07/16 Stool Pus (DIOMEDES), Received Pending Physical Exam General General Appearance: Well Developed, Well Nourished, No Acute Distress, Comfortable Eyes Eye Exam: Pupils Equal, Pupils Reactive, Sclera White, Extraocular Movement Intact Throat Throat Exam: Oral Mucosa [place] & Moist, Oral Pharynx Normal Neck Neck Exam: Neck Supple, Trachea Midline Pulmonary Resp Exam: Clear Bilaterally, Breath Sounds Equal, No Distress Cardiology CV Exam: Regular, Normal Sinus Rhythm Gastrointestinal/Abdomen GI Exam: Soft, Bowel Sounds Present GI Remarks mild diffuse tenderness. Musculoskeletal MS Exam: Normal Gait Integumentary Skin Exam: Clear, Warm, Dry, Intact Extremeties Extremities Exam: No Edema Neurologic Neuro Exam: Alert, Awake, Oriented, Speech Clear, Moving All Extremities, No Focal Deficits VTE Prophylaxis VTE Prophylaxis Meds: Heparin PUD Prophylasis PUD Prophylaxis: Protonix Assessment/Plan Assessment/Plan ASSESSMENT AND PLAN 1. This is a 61-year-old female who came to the ER diagnosed with nausea, vomiting, diarrhea, most likely gastroenteritis. The patient also has a history of diabetic gastroparesis too. GI input noted. 2. Urinary tract infection. patient on Levaquin IV daily. Recheck UA. 3. History of hypertension. Continue home medication. Hold all blood pressure medicine if systolic blood pressure less than 120. 4. History of diabetes mellitus. The patient on a clear liquid diet. keep the patient on insulin sliding scale, holding all home medication. 5. History of hyperlipidemia. Continue with pravastatin 20 mg p.o. daily. 6. History of headache. Continue with Topamax. 7. History of diabetic neuropathy. Continue with gabapentin. 8. History of hypothyroidism. Continue with levothyroxine. 9. Nausea, vomiting. The patient on Zofran. 10. History of arthritis. 11. History of asthma. 12. History of anxiety. 13. History of stroke in the past. 14. History of kidney stones in the past. 15. DVT prophylaxis. SCDs. 16. GI prophylaxis. Protonix 40 mg IV daily. Check CBC with diff CMP in AM. We are going to monitor the patient on a daily basis and make recommendation on a daily basis. Discussed Condition with: Patient Cj Hare MD Nov 07, 2016 09:46
[2016-11-07] MEDS: LEVOFLOXACIN/DEXTROSE 250 MG/50 ML IV SCH (10:38)
--- NOTE | 2016-11-07 11:20 | HHI.GIFU ---
Subjective Remarks Pt reports loose stools yesterday about 7 times and had three episodes of emesis this AM. C/o severe constant abdominal pain, pain medication not helping. Tolerating diet. Objective Vitals I&O Vital Signs Date Time Temp Pulse Resp B/P Pulse Ox O2 Delivery O2 Flow Rate FiO2 11/07/16 08:00 97.1 79 20 105/70 99 11/07/16 07:03 20 11/07/16 00:00 97.9 75 16 114/77 98 11/06/16 20:00 95.9 94 18 104/74 98 11/06/16 16:00 98.5 73 19 97/63 99 11/06/16 12:00 97.2 67 18 85/58 97 I/O 11/06/16 11/06/16 11/06/16 11/07/16 11/07/16 11/07/16 07:00 15:00 23:00 07:00 15:00 23:00 Intake Total 2800 ml 3375 ml 1388 ml Output Total 1650 ml Balance 1150 ml 3375 ml 1388 ml Intake Oral 1920 ml IV Total 2800 ml 1455 ml 1388 ml Output Urine Total 1650 ml # Voids 10 # Bowel Movements 0 4 Laboratory Laboratory Tests Test 11/07/16 06:35 White Blood Count 4.8 Red Blood Count 3.83 Hemoglobin 10.1 Hematocrit 31.9 Mean Corpuscular Volume 83.3 Mean Corpuscular Hemoglobin 26.5 Mean Corpuscular Hemoglobin 31.8 Concent Red Cell Distribution Width 13.4 Platelet Count 134 Mean Platelet Volume 9.6 Neutrophils (%) (Auto) 44.0 Lymphocytes (%) (Auto) 41.2 Monocytes (%) (Auto) 6.2 Eosinophils (%) (Auto) 7.3 Basophils (%) (Auto) 1.3 Neutrophils # (Auto) 2.1 Lymphocytes # (Auto) 2.0 Monocytes # (Auto) 0.3 Eosinophils # (Auto) 0.3 Basophils # (Auto) 0.1 CBC Comment DIFF FINAL Differential Comment Sodium Level 145 Potassium Level 3.9 Chloride Level 116 Carbon Dioxide Level 20.5 Anion Gap 9 Blood Urea Nitrogen 8 Creatinine 1.00 Estimat Glomerular Filtration 56 Rate Random Glucose 119 Calcium Level 8.4 Total Bilirubin 0.1 Aspartate Amino Transf 21 (AST/SGOT) Alanine Aminotransferase 34 (ALT/SGPT) Alkaline Phosphatase 137 Total Protein 6.2 Albumin 2.9 Date/Time Procedure Status Source Growth 11/07/16 01:40 Stool Pus (DIOMEDES) Received Stool Stool Pending 11/04/16 22:14 Urine Culture - Final Complete Urine Clean Catch Klebsiella Pneumoniae Physical Exam HEENT: Pupils round and reactive to light; normocephalic; atraumatic; no jaundice. Throat is clear. NECK: Neck is supple, no JVD, no lymphadenopathy. ABDOMEN: Soft, nondistended, diffusely tender to palpation; no hepatosplenomegaly; bowel sounds are present in all four quadrants. EXTREMITIES: No clubbing, cyanosis, or edema. SKIN: Normal; no rash; no jaundice. 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 Assessment and Plan Assessment: (1) Persistent recurrent vomiting (2) Ileus (3) Gastroparesis Plan 1. Abdominal pain/Nausea, vomiting/diarrhea - mild ileus on CT, possible gastroenteritis, vs exacerbation of gastroparesis in the setting of UTI - concerns for possible ischemic enteritis based on constant pain out of proportion with physical examination, will order CTA - follow stool studies - continue antiemetics - on Bentyl, not helping much. Pain management as per primary team - continue gastroparesis management with Bethanechol - advance diet as tolerated 2. All other medical problems to be addressed by primary team Dale Robles MD Nov 07, 2016 11:20
[2016-11-07 12:00] VITALS: BP 103/72; PULSE 82; RESP 20; TEMP 98; O2SAT 98
[2016-11-07] MEDS: LEVOFLOXACIN 500 MG PREMIX INJ 100 ML IV SCH (14:46)
[2016-11-07 16:00] VITALS: BP 102/78; PULSE 80; RESP 20; TEMP 97.1; O2SAT 98
[2016-11-07 20:00] VITALS: BP 110/70; PULSE 75; RESP 20; TEMP 97; O2SAT 99
[2016-11-07] MEDS: INSULIN DETEMIR 100 UNITS/ML VIAL SQ SCH (21:28)
[2016-11-07] MEDS ORDERED: IOHEXOL 350 MG/ML 10 ML VIAL (for RAD DIAG) IV ONE (22:26)
--- NOTE | 2016-11-07 23:20 | RADHPO ---
EXAM DATE/TIME: 11/07/2016 20:54 [facility] COMPARISON: No previous studies available for comparison. INDICATIONS : Abdomen pain, ischemic enteritis IV CONTRAST: 100 cc Omnipaque 350 (iohexol) IV ORAL CONTRAST: No oral contrast ingested. RADIATION DOSE: 8.87 CTDIvol (mGy) MEDICAL HISTORY : Cerebrovascular disease. Hypertension. Diabetes mellitus type 2. SURGICAL HISTORY : Cholecystectomy. ENCOUNTER: Initial ACUITY: 1 day PAIN SCALE: 5/10 LOCATION: abdomen TECHNIQUE: Volumetric scanning was performed using a multi-row detector CT scanner. The data was post processed with a variety of visualization algorithms including full volume maximum intensity projection, multi -planar sliding thin slab reformation, curved planar reformation, and surface rendering techniques. Using automated exposure control and adjustment of the mA and/or kV according to patient size, radiat ion dose was kept as low as reasonably achievable to obtain optimal diagnostic quality images. FINDINGS: ABDOMINAL AORTA: The lumen is smooth without significant narrowing or aneurismal dilation. The proximal celiac and sup erior mesenteric arteries are patent and normal in diameter. There are solitary renal arteries bilat erally without gross abnormality. BIFURCATION: Normal. RIGHT PELVIS: The right common iliac, internal iliac and external iliac vessels are patent without luminal irregula rity. LEFT PELVIS: The left common iliac, internal iliac and external iliac vessels are patent and without luminal irreg ularity. CONCLUSION: 1. Negative CTA abdomen and pelvis. Additional findings include previous cholecystectomy, previous ve ntral hernia repair. Left kidney is atrophic. Jim Hwang MD on November 07, 2016 at 23:15 Board Certified Radiologist. This report was verified electronically.
[2016-11-08] VITALS: BP 115/76; PULSE 72; RESP 18; TEMP 97.3; O2SAT 100
[2016-11-08] MEDS: SODIUM CHLOR 0.9% 1000 ML INJ 1,000 ML IV SCH ×3 (02:45→12:14)
[2016-11-08] MEDS: ONDANSETRON HCL 4 MG/2 ML VIAL IV PUSH SCH ×2 (05:42→12:14)
[2016-11-08] MEDS: BETHANECHOL CHL 25 MG TAB PO SCH ×2 (05:43→12:18)
[2016-11-08] MEDS: traMADol HCL 50 MG TAB PO PRN (05:43)
[2016-11-08] MEDS: LEVOTHYROXINE SODIUM 50 MCG TAB PO SCH (05:43)
[2016-11-08] MEDS: MEDIUM DOSE INSULIN NOVOLOG SUPPLEMENTAL SCALE SQ SCH ×2 (05:47→11:00)
--- NOTE | 2016-11-08 06:53 | HHI.PR ---
Subjective History of Present Illness Patient abdominal pain much better on pain medicine nothing Acute...ok to DC home today. d/w RN Adrianne. Review of Systems GI/Abdomen GI/Abdominal Exam: Abdominal Pain Vitals/Results Intake & Output 11/07/16 11/07/16 11/08/16 15:00 23:00 07:00 Intake Total 690 ml 800 ml Balance 690 ml 800 ml Intake Oral 690 ml IV Total 800 ml # Voids 10 2 2 # Bowel Movements 1 0 Vital Signs Vital Signs Date Time Temp Pulse Resp B/P Pulse Ox O2 Delivery O2 Flow Rate FiO2 11/08/16 00:00 97.3 72 18 115/76 100 11/07/16 20:00 97.0 75 20 110/70 99 Automatic Cuff 11/07/16 16:00 97.1 80 20 102/78 98 11/07/16 15:14 20 11/07/16 12:00 98.0 82 20 103/72 98 11/07/16 08:00 97.1 79 20 105/70 99 11/07/16 07:03 20 CBC/BMP: 11/07/16 0635 11/07/16 0635 Physical Exam General General Appearance: Well Developed, Well Nourished, No Acute Distress, Comfortable Eyes Eye Exam: Pupils Equal, Pupils Reactive, Sclera White, Extraocular Movement Intact Throat Throat Exam: Oral Mucosa [place] & Moist, Oral Pharynx Normal Neck Neck Exam: Neck Supple, Trachea Midline Pulmonary Resp Exam: Clear Bilaterally, Breath Sounds Equal, No Distress Cardiology CV Exam: Regular, Normal Sinus Rhythm Gastrointestinal/Abdomen GI Exam: Soft, Bowel Sounds Present GI Remarks mild diffuse tenderness. Musculoskeletal MS Exam: Normal Gait Integumentary Skin Exam: Clear, Warm, Dry, Intact Extremeties Extremities Exam: No Edema Neurologic Neuro Exam: Alert, Awake, Oriented, Speech Clear, Moving All Extremities, No Focal Deficits VTE Prophylaxis VTE Prophylaxis Meds: Heparin PUD Prophylasis PUD Prophylaxis: Protonix Assessment/Plan Assessment/Plan ASSESSMENT AND PLAN 1. This is a 61-year-old female who came to the ER diagnosed with nausea, vomiting, diarrhea, most likely gastroenteritis. The patient also has a history of diabetic gastroparesis too. GI input noted. 2. Urinary tract infection. patient on Levaquin IV daily. Recheck UA. 3. History of hypertension. Continue home medication. Hold all blood pressure medicine if systolic blood pressure less than 120. 4. History of diabetes mellitus. The patient on a clear liquid diet. keep the patient on insulin sliding scale, holding all home medication. 5. History of hyperlipidemia. Continue with pravastatin 20 mg p.o. daily. 6. History of headache. Continue with Topamax. 7. History of diabetic neuropathy. Continue with gabapentin. 8. History of hypothyroidism. Continue with levothyroxine. 9. Nausea, vomiting. The patient on Zofran. 10. History of arthritis. 11. History of asthma. 12. History of anxiety. 13. History of stroke in the past. 14. History of kidney stones in the past. 15. DVT prophylaxis. SCDs. 16. GI prophylaxis. Protonix 40 mg IV daily. ok to DC home today. f/u with PCP/GI 1 week. Discussed Condition with: Patient Cj Hare MD Nov 08, 2016 06:53
[2016-11-08 08:00] VITALS: BP 102/74; PULSE 72; RESP 18; TEMP 97.7; O2SAT 99
[2016-11-08] MEDS ORDERED: BENT20TA PO (08:27)
[2016-11-08] MEDS ORDERED: LEVA500T PO (08:27)
[2016-11-08] MEDS ORDERED: BETH25 PO (08:28)
[2016-11-08] MEDS: METOPROLOL TARTRATE 25 MG TAB PO SCH (09:00)
[2016-11-08] MEDS: amLODIPine BESYLATE 5 MG TAB PO SCH (09:00)
[2016-11-08] MEDS: LOSARTAN 50 MG TAB PO SCH (09:00)
[2016-11-08] MEDS: DICYCLOMINE HCL 20 MG TAB PO SCH ×2 (09:15→12:17)
[2016-11-08] MEDS: PRAVASTATIN SOD 20 MG TAB PO SCH (09:15)
[2016-11-08] MEDS: PANTOPRAZOLE SOD 20 MG DELAYED RELEASE TAB PO SCH (09:15)
[2016-11-08] MEDS: GABAPENTIN 300 MG CAP PO SCH ×2 (09:15→12:17)
[2016-11-08] MEDS: TOPIRAMATE 25 MG TAB PO SCH (09:16)
[2016-11-08] MEDS: ARIPiprazole 5 MG TAB PO SCH (09:16)
[2016-11-08] MEDS: lamoTRIgine 100 MG TAB PO SCH (09:16)
--- NOTE | 2016-11-08 11:45 | HHI.GIFU ---
Subjective Remarks Pt feeling better today, less pain. denies further episodes of vomiting or diarrhea. Tolerating diet. Objective Vitals I&O Vital Signs Date Time Temp Pulse Resp B/P Pulse Ox O2 Delivery O2 Flow Rate FiO2 11/08/16 08:00 97.7 72 18 102/74 99 11/08/16 00:00 97.3 72 18 115/76 100 11/07/16 20:00 97.0 75 20 110/70 99 Automatic Cuff 11/07/16 16:00 97.1 80 20 102/78 98 11/07/16 15:14 20 11/07/16 12:00 98.0 82 20 103/72 98 I/O 11/07/16 11/07/16 11/07/16 11/08/16 11/08/16 11/08/16 07:00 15:00 23:00 07:00 15:00 23:00 Intake Total 1388 ml 690 ml 800 ml Balance 1388 ml 690 ml 800 ml Intake Oral 690 ml IV Total 1388 ml 800 ml # Voids 10 2 2 # Bowel Movements 1 0 Laboratory Date/Time Procedure Status Source Growth 11/07/16 01:40 Stool Pus (DIOMEDES) - Final Complete Stool Stool RARE WBC 11/04/16 22:14 Urine Culture - Final Complete Urine Clean Catch Klebsiella Pneumoniae Physical Exam HEENT: Pupils round and reactive to light; normocephalic; atraumatic; no jaundice. Throat is clear. NECK: Neck is supple, no JVD, no lymphadenopathy. ABDOMEN: Soft, nondistended, mildly tender to palpation in all quadrants; no hepatosplenomegaly; bowel sounds are present in all four quadrants. EXTREMITIES: No clubbing, cyanosis, or edema. SKIN: Normal; no rash; no jaundice. 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 Assessment and Plan Assessment: (1) Persistent recurrent vomiting (2) Ileus (3) Gastroparesis Plan 1. Abdominal pain/Nausea, vomiting/diarrhea - mild ileus noted on CT on admission, possible gastroenteritis, vs exacerbation of gastroparesis in the setting of UTI - CTA abdomen and pelvis unremarkable - negative stool studies - antiemetics PRN - on Bentyl, can continue as outpatient - continue gastroparesis management with Bethanechol 2. All other medical problems to be addressed by primary team GI will sign off. Pt to follow with Dr. Petersen as outpatient. Please call with any questions. Thank you for this consult. Dale Robles MD Nov 08, 2016 11:45
[2016-11-08] MEDS: LEVOFLOXACIN 500 MG PREMIX INJ 100 ML IV SCH (12:12)
[2016-11-16] MEDS ORDERED: LORA10TA PO (11:16)
[2016-11-16] MEDS ORDERED: LANTINJ SQ (22:05)
--- NOTE | 2016-11-17 05:45 | MD ---
cc: CJ CHAVEZ MD ADMISSION DATE: 11/05/2016 DISCHARGE DATE: 11/08/2016 DISPOSITION Okay to discharge the patient home. CONDITION AT THE TIME OF DISCHARGE Satisfactory. ACTIVITY As tolerated. DIET A cardiac diet, ADA 1800 calorie diet. ALLERGIES CODEINE. PREDNISONE. DISCHARGE MEDICATION 1. Bethanechol 25 mg p.o. q. 6 hours. 2. Dicyclomine 20 mg p.o. q.i.d. 3. Levaquin 500 mg p.o. daily for 7 days. 4. Amlodipine 5 mg p.o. daily. 5. Aripiprazole 5 mg p.o. daily. 6. Gabapentin 300 mg p.o. t.i.d. 7. Insulin, Lantus 50 units subcutaneous at bedtime. 8. Lamotrigine 100 mg p.o. daily. 9. Levothyroxine 50 mcg p.o. daily. 10. Victoza 1.8 mg subcutaneous daily. 11. Metoprolol 25 mg p.o. 12. Omeprazole 20 mg p.o. daily. 13. Zofran 4 mg q.8 hours p.r.n. nausea, vomiting. 14. Pravastatin 20 mg p.o. daily. 15. Topamax 50 mg daily p.o. daily. 16. Tramadol 50 mg q. 8 hours. 17. Loperamide 2 mg as needed for diarrhea. FOLLOWUP The patient advised to follow up with PCP and GI in one week. ADMISSION DIAGNOSIS 1. Abdominal pain, nausea, vomiting and diarrhea likely secondary to gastroenteritis and gastroparesis. Nausea and vomiting resolved, diarrhea resolved, abdominal pain improved. 2. Urinary tract infection. The patient was given IV Levaquin. 3. History of hypertension. 4. History of diabetes mellitus. 5. History of hyperlipidemia. 6. Headache. 7. Diabetic neuropathy. 8. History of hyperthyroidism. 9. Nausea and vomiting which has resolved. 10. History of arthritis. 11. History of asthma. 12. History of anxiety. 13. History of stroke in the past. HOSPITAL COURSE This is a 67-year female admitted with abdominal pain, nausea, vomiting, diagnosed with gastroenteritis and gastroparesis. The patient was seen by GI. The patient also had a urinary tract infection. The patient was given Levaquin. Patient's condition improved. The patient remained stable. No acute event happened. The patient was discharged in a satisfactory condition. Further details in the medical record. Cj Chavez MD EA/AMAYA /11:01 AM /5:36 AM
[2016-11-30] MEDS ORDERED: TRAM50TA PO (08:09)
[2016-12-06] MEDS ORDERED: CLON0.5T PO (11:31)
[2016-12-22] MEDS ORDERED: CLON0.5T PO (14:10)
[2016-12-22] MEDS ORDERED: TRAM50TA PO (14:10)
[2016-12-22] MEDS ORDERED: CETI10 PO (14:10)
[2016-12-22] MEDS ORDERED: NITR100C4 PO ×2 (14:28→16:30)
[2016-12-22] MEDS ORDERED: LAMO100T PO (14:40)
[2016-12-22] MEDS ORDERED: GABA300C5 PO (14:40)
[2016-12-22] MEDS ORDERED: TOPA50TA7 PO (14:40)
[2016-12-22] MEDS ORDERED: PRAV20TA2 PO (14:40)
[2016-12-22] MEDS ORDERED: AMLO5TAB2 PO (14:40)
[2016-12-22] MEDS ORDERED: LEVO50TA4 PO (14:40)
[2016-12-22] MEDS ORDERED: VICT18IN SQ (14:40)
[2016-12-22] MEDS ORDERED: LOSA50TA PO (14:40)
[2016-12-22] MEDS ORDERED: METO25TA3 PO (14:40)
[2016-12-22] MEDS ORDERED: ARIP1TAB11 PO (14:40)
[2016-12-22] MEDS ORDERED: LANTINJ SQ (14:40)
[2017-03-16] MEDS ORDERED: CLAR10CA3 PO (11:25)
[2017-03-22] MEDS ORDERED: DULO1CAP PO (13:24)
[2017-04-05] MEDS ORDERED: LANTINJ SQ (14:17)
== END 2016-11-08 12:00 | disposition home or self-care (01) | DRG 392 ==
LOC: PHED 18:55 → PHEDA 11-05 00:30 → PH3B 11-05 01:39 → OBSVTOIN 11-05 09:30
PROVIDERS: ADMIT Family Medicine; ATTEND Family Medicine
DX: K52.9 Noninfective gastroenteritis and colitis, unspecified (principal); K31.84 Gastroparesis; E11.43 Type 2 diabetes mellitus with diabetic autonomic (poly)neuropathy; N39.0 Urinary tract infection, site not specified; K56.7 Ileus, unspecified; R11.10 Vomiting, unspecified; K21.9 Gastro-esophageal reflux disease without esophagitis; K29.60 Other gastritis without bleeding; Z79.4 Long term (current) use of insulin; D64.9 Anemia, unspecified; I10 Essential (primary) hypertension; E78.5 Hyperlipidemia, unspecified; E03.9 Hypothyroidism, unspecified; M19.90 Unspecified osteoarthritis, unspecified site; J45.909 Unspecified asthma, uncomplicated; F41.9 Anxiety disorder, unspecified; Z86.73 Personal history of transient ischemic attack (TIA), and cerebral infarction without residual deficits; R51 Headache; I25.10 Atherosclerotic heart disease of native coronary artery without angina pectoris; F17.210 Nicotine dependence, cigarettes, uncomplicated; Z83.3 Family history of diabetes mellitus; Z86.010 Personal history of colon polyps; Z87.442 Personal history of urinary calculi
CPT/HCPCS: 74174; 74176; 76937; 80053; 81001; 82728; 82948; 83540; 83550; 83690; 85025; 87077; 87086; 87186; 87205; 96361; 96374; 96375; J0780; J1170; J1364; J1815; J1956; J2270; J2405; J2765; J7030; J7040; J7050; Q9967

== ENCOUNTER 2017-02-22 09:06 | Emergency (ER) | payer MEDICARE, MEDICAID ==
[~2017-02-22] VITALS: Ht 162.6 cm; Wt 72.0 kg
[~2017-02-22 09:06] MED LIST changes: +BENT20TA PO; +BETH25 PO; +CETI10 PO; -IBUP-232 PO; +LORA10TA PO; +NITR100C4 PO
[2017-02-22 09:11] VITALS: BP 97/63; PULSE 84; RESP 18; TEMP 97.7; O2SAT 98
[2017-02-22] MEDS ORDERED: RESP: ALBUTEROL 2.5 MG/IPRATROPIUM 0.5 MG NEB (SCH) INH ONE (09:30)
[2017-02-22 09:44] VITALS: O2SAT 97
[2017-02-22 10:02] LABS: AUTOMATED NEUTROPHIL # 4.1 TH/MM3 (1.8-7.7); BASOPHIL % 0.3 % (0.0-2.0); EOSINOPHIL # 0.4 TH/MM3 (0-0.4); HEMATOCRIT 34.2 % (35.0-46.0); HEMO FLAGS DIFF FINAL; LYMPH % 32.5 % (9.0-44.0); LYMPHOCYTE # 2.3 TH/MM3 (1.0-4.8); MEAN CELL VOLUME 84.3 FL (80.0-100.0); MEAN CORPUSCULAR HEMOGLOBIN 26.1 PG (27.0-34.0); MEAN CORPUSCULAR HGB CONC 30.9 % (32.0-36.0); MONO % 2.7 % (0.0-8.0); NEUT % 59.5 % (16.0-70.0); PLATELET COUNT 188 TH/MM3 (150-450); RED BLOOD COUNT 4.06 MIL/MM3 (4.00-5.30); RED CELL DISTRIBUTION WIDTH 13.5 % (11.6-17.2)
[2017-02-22 10:18] LABS: POTASSIUM 3.8 MEQ/L (3.5-5.1)
--- NOTE | 2017-02-22 10:20 | RADHPO ---
EXAM DATE/TIME: 02/22/2017 10:00 [facility] COMPARISON: XR CHEST PA & LAT, March 07, 2014, 17:20. INDICATIONS : Cough, congestion, chest tightness. MEDICAL HISTORY : Hypertension. Diabetes mellitus type II. SURGICAL HISTORY : None. ENCOUNTER: Initial ACUITY: 1 month PAIN SCORE: 2/10 LOCATION: Bilateral chest FINDINGS: PA and lateral views of the chest demonstrate the lungs to be symmetrically aerated without evidence of mass, infiltrate or effusion. The cardiomediastinal contours are unremarkable. Osseous structure s are intact. CONCLUSION: No acute disease. Terrance Cottrell MD on February 22, 2017 at 10:18 Board Certified Radiologist. This report was verified electronically.
[2017-02-22 10:22] LABS: BICARBONATE 21.7 MEQ/L (21.0-32.0)
[2017-02-22 10:27] VITALS: BP 90/56; PULSE 83; RESP 16; O2SAT 95
--- NOTE | 2017-02-22 10:27 | PD ---
HPI Chief Complaint: Respiratory Symptoms Time Seen by Provider: 09:20 Travel History International Travel<30 days: No Contact w/Intl Traveler<30days: No Traveled to known affect area: No History of Present Illness HPI Patient is a 61-year-old female who presents to emergency room with complaints of productive cough and congestion for the past month. Reports no fever/chills. Denies any sick contacts. Reports that her grandchildren are sick with similar symptoms. Denies chest pain/sob. No other c/o. PFSH Past Medical History Arthritis: Yes (JOINTS) Asthma: Yes Autoimmune Disease: No Blood Disorders: No Bipolar Disorder: Yes Anxiety: Yes Depression: Yes Heart Rhythm Problems: No Cancer: No Cardiac Catheterization: Yes Cardiovascular Problems: Yes (htn on meds took this am.) High Cholesterol: Yes Chemotherapy: No Chest Pain: No Congestive Heart Failure: No COPD: No Cerebrovascular Accident: Yes (CVA R 1997) Coronary Artery Disease: Yes Diabetes: Yes Patient Takes Glucophage: Yes Diminished Hearing: No Endocrine: Yes Gastrointestinal Disorders: Yes (GASTROPARESIS) GERD: Yes Genitourinary: No Headaches: Yes (DAILY) Hepatitis: No Hiatal Hernia: Yes Heparin Induced Thrombocytopen: No Hypertension: Yes Immune Disorder: No Implanted Vascular Access Dvce: No Kidney Stones: Yes (PASSED 2, 2 EXTRACTED) Musculoskeletal: Yes Neurologic: Yes (DIABETIC COMA, DRANK 3 GALLONS ORANGE JUICE) Psychiatric: Yes Reproductive: No Respiratory: Yes (OCC INHALER USE) Immunizations Current: Yes (SHINGLES) Migraines: No Myocardial Infarction: No Radiation Therapy: No Renal Failure: No Seizures: No Sickle Cell Disease: No Sleep Apnea: No Thyroid Disease: Yes Ulcer: No Tetanus Vaccination: < 5 Years Influenza Vaccination: Yes ?: Not Menopausal: Yes Past Surgical History Abdominal Surgery: Yes (UMBILICAL HERNIA REPAIR,CHOLECYSTECTOMY) AICD: No Arteriovenous Shunt: No Cardiac Surgery: No Cholecystectomy: Yes Ear Surgery: No Endocrine Surgery: No Eye Surgery: Yes Genitourinary Surgery: Yes (2 KIDNEY STONE EXTRACTIONS) Gynecologic Surgery: Yes (HYSTERECTOMY) Hysterectomy: Yes Insulin Pump: No Joint Replacement: No Neurologic Surgery: No Oral Surgery: No Pacemaker: No Thoracic Surgery: No Other Surgery: Yes Social History Alcohol Use: No (DENIES) Tobacco Use: No Substance Use: No Allergies-Medications (Allergen,Severity, Reaction): Coded Allergies: Codeine (Verified Allergy, Intermediate, HIVES, 02/22/17) Prednisone (Verified Adverse Reaction, Severe, 02/22/17) INCREASES BLOOD GLUCOSE Reported Meds & Prescriptions Reported Meds & Active Scripts Active Lantus Solostar Pen Inj (Insulin Glargine) 300 Unit/3 Ml Pen 60 Units SQ HS Victoza Inj (Liraglutide Inj) 18 Mg/3 Ml Pen 1.8 Mg SQ DAILY Amlodipine (Amlodipine Besylate) 5 Mg Tab 5 Mg PO DAILY Metoprolol Tartrate 25 Mg Tab 0.5 Tab PO BID Topamax (Topiramate) 50 Mg Tab 50 Mg PO BID Lamotrigine 100 Mg Tab 100 Mg PO DAILY Gabapentin 300 Mg Cap 300 Mg PO TID Levothyroxine (Levothyroxine Sodium) 50 Mcg Tab 50 Mcg PO DAILY Pravastatin 20 Mg Tab 20 Mg PO DAILY Losartan (Losartan Potassium) 50 Mg Tab 50 Mg PO DAILY Aripiprazole 5 Mg Tab 5 Mg PO DAILY Cetirizine (Cetirizine HCl) 10 Mg Tab 10 Mg PO HS Clonazepam 0.5 Mg Tab 0.5 Mg PO TID PRN Tramadol (Tramadol HCl) 50 Mg Tab 1-3 Tab PO Q8H PRN Take 1-3 tablets at night as needed for pain. Before physical therapy, take 2-3 tablets to prevent pain during therapy. No more than 6 tablets in 24 hours. Loratadine 10 Mg Tab 10 Mg PO DAILY Urecholine (Bethanechol Chloride) 25 Mg Tab 25 Mg PO Q6HR Bentyl (Dicyclomine HCl) 20 Mg Tab 20 Mg PO QID Loperamide (Loperamide HCl) 2 Mg Tab 2 Mg PO DIRECTED PRN One tablet after each loose stool. Not to exceed 8 tablets per day. Reported Omeprazole 20 Mg Tab 20 Mg PO DAILY Review of Systems General / Constitutional: No: Fever, Chills Eyes: No: Visual changes HENT: No: Headaches Cardiovascular: No: Chest Pain or Discomfort Respiratory: Positive: Cough, No: Shortness of Breath Gastrointestinal: No: Abdominal Pain Genitourinary: No: Dysuria Musculoskeletal: No: Pain Skin: No Rash Neurologic: No: Weakness Psychiatric: No: Depression Endocrine: No: Polydipsia Hematologic/Lymphatic: No: Easy Bruising Physical Exam Narrative GENERAL: nad, nontoxic SKIN: Focused skin assessment warm/dry. HEAD: Atraumatic. Normocephalic. EYES: Pupils equal and round. No scleral icterus. No injection or drainage. ENT: No nasal bleeding or discharge. Mucous membranes pink and moist. NECK: Trachea midline. No JVD. CARDIOVASCULAR: Regular rate and rhythm. No murmur appreciated. RESPIRATORY: No accessory muscle use. Clear to auscultation. Breath sounds equal bilaterally. GASTROINTESTINAL: Abdomen soft, non-tender, nondistended. Hepatic and splenic margins not palpable. MUSCULOSKELETAL: No obvious deformities. No clubbing. No cyanosis. No edema. NEUROLOGICAL: Awake and alert. No obvious cranial nerve deficits. Motor grossly within normal limits. Normal speech. PSYCHIATRIC: Appropriate mood and affect; insight and judgment normal. Data Data Last Documented VS Vital Signs Date Time Temp Pulse Resp B/P Pulse Ox O2 Delivery O2 Flow Rate FiO2 02/22/17 10:27 83 16 90/56 95 02/22/17 09:44 Room Air 02/22/17 09:11 97.7 Orders Basic Metabolic Panel (Bmp) (02/22/17 09:23) Complete Blood Count With Diff (02/22/17 09:23) Influenzae A/B Antigen (02/22/17 09:23) Chest, Pa & Lat (02/22/17 09:23) Iv Access Insert/Monitor (02/22/17 09:23) Oximetry (02/22/17 09:23) Albuterol-Ipratropium Neb (Duoneb Neb) (02/22/17 09:30) Sodium Chlor 0.9% 1000 Ml Inj (Ns 1000 M (02/22/17 10:30) Azithromycin (Zithromax) (02/22/17 10:30) Labs Laboratory Tests Test 02/22/17 09:50 White Blood Count 7.0 TH/MM3 Red Blood Count 4.06 MIL/MM3 Hemoglobin 10.6 GM/DL Hematocrit 34.2 % Mean Corpuscular Volume 84.3 FL Mean Corpuscular Hemoglobin 26.1 PG Mean Corpuscular Hemoglobin 30.9 % Concent Red Cell Distribution Width 13.5 % Platelet Count 188 TH/MM3 Mean Platelet Volume 8.7 FL Neutrophils (%) (Auto) 59.5 % Lymphocytes (%) (Auto) 32.5 % Monocytes (%) (Auto) 2.7 % Eosinophils (%) (Auto) 5.0 % Basophils (%) (Auto) 0.3 % Neutrophils # (Auto) 4.1 TH/MM3 Lymphocytes # (Auto) 2.3 TH/MM3 Monocytes # (Auto) 0.2 TH/MM3 Eosinophils # (Auto) 0.4 TH/MM3 Basophils # (Auto) 0.0 TH/MM3 CBC Comment DIFF FINAL Differential Comment Sodium Level 145 MEQ/L Potassium Level 3.8 MEQ/L Chloride Level 113 MEQ/L Carbon Dioxide Level 21.7 MEQ/L Anion Gap 10 MEQ/L Blood Urea Nitrogen 17 MG/DL Creatinine 1.30 MG/DL Estimat Glomerular Filtration 42 ML/MIN Rate Random Glucose 184 MG/DL Calcium Level 8.8 MG/DL MDM Medical Decision Making Medical Screen Exam Complete: Yes Emergency Medical Condition: Yes Interpretation(s) Vital Signs Date Time Temp Pulse Resp B/P Pulse Ox O2 Delivery O2 Flow Rate FiO2 02/22/17 09:44 97 Room Air 02/22/17 09:27 Room Air 02/22/17 09:11 97.7 84 18 97/63 98 Differential Diagnosis Pneumonia, influenza, bronchitis, viral syndrome Narrative Course Patient is a 61-year-old female who presents to emergency room for evaluation of productive cough for the past month. Patient reports that her grandchildren with initially sick with symptoms, reports that "they cannot me sick." With no fevers or chills, reports that "i can't stop coughing." Denies chest pain/sob. Denies any other complaints. labs as well as xray of chest ordered. I did order patient a neb treatment and offered her a dose of steroids as i do think that patient has a component of bronchitis. Patient refuses steroids as she is a DMI and every time she takes steroids, it "makes my blood sugar out of control." Laboratory Tests Test 02/22/17 09:50 White Blood Count 7.0 TH/MM3 (4.0-11.0) Red Blood Count 4.06 MIL/MM3 (4.00-5.30) Hemoglobin 10.6 GM/DL (11.6-15.3) Hematocrit 34.2 % (35.0-46.0) Mean Corpuscular Volume 84.3 FL (80.0-100.0) Mean Corpuscular Hemoglobin 26.1 PG (27.0-34.0) Mean Corpuscular Hemoglobin 30.9 % Concent (32.0-36.0) Red Cell Distribution Width 13.5 % (11.6-17.2) Platelet Count 188 TH/MM3 (150-450) Mean Platelet Volume 8.7 FL (7.0-11.0) Neutrophils (%) (Auto) 59.5 % (16.0-70.0) Lymphocytes (%) (Auto) 32.5 % (9.0-44.0) Monocytes (%) (Auto) 2.7 % (0.0-8.0) Eosinophils (%) (Auto) 5.0 % (0.0-4.0) Basophils (%) (Auto) 0.3 % (0.0-2.0) Neutrophils # (Auto) 4.1 TH/MM3 (1.8-7.7) Lymphocytes # (Auto) 2.3 TH/MM3 (1.0-4.8) Monocytes # (Auto) 0.2 TH/MM3 (0-0.9) Eosinophils # (Auto) 0.4 TH/MM3 (0-0.4) Basophils # (Auto) 0.0 TH/MM3 (0-0.2) CBC Comment DIFF FINAL Differential Comment Sodium Level 145 MEQ/L (136-145) Potassium Level 3.8 MEQ/L (3.5-5.1) Chloride Level 113 MEQ/L (98-107) Carbon Dioxide Level 21.7 MEQ/L (21.0-32.0) Anion Gap 10 MEQ/L (5-15) Blood Urea Nitrogen 17 MG/DL (7-18) Creatinine 1.30 MG/DL (0.50-1.00) Estimat Glomerular Filtration 42 ML/MIN (>89) Rate Random Glucose 184 MG/DL (74-106) Calcium Level 8.8 MG/DL (8.5-10.1) Last Impressions Chest X-Ray 02/22/17 0923 Signed Impressions: Service Date/Time: Wednesday, February 22, 2017 10:00 - CONCLUSION: No acute disease. Terrance Cottrell MD Patient feeling much better at this time. There is no obvious pneumonia on x- ray, influenza is negative. CBC within normal limits. Patient with most likely bronchitis. Will treat with antibiotics, and outpatient follow-up with primary care doctor and return to emergency room if symptoms worsen or progress Diagnosis Primary Impression: Bronchitis Additional Impressions: Renal insufficiency Anemia Qualified Code: D64.9 - Anemia, unspecified type Patient Instructions: General Instructions Additional Instructions: Please follow-up with your primary care doctor Return to emergency room if symptoms worsen or progress Please take all medications as prescribed Return to emergency room as needed Please drink plenty of fluids Med/Other Pt SpecificInfo: Prescription(s) given Scripts Benzonatate (Tessalon Perles)100 Mg [id number] Mg PO TID PRN (COUGH) #30 CAP Ref 0 Prov:Aruna Townsend DO 02/22/17 Azithromycin 500 Mg [id number] Mg PO DAILY #5 TAB Ref 0 Prov:Aruna Townsend DO 02/22/17 Albuterol 8.5 GM Inh (Proair Hfa 8.5 GM Inh)90 Mcg/Act Aer2 Puff INH Q4-6H PRN ( SHORTNESS OF BREATH) #1 INHALER Ref 0 108 mcg/actuation Prov:Aruna Townsend DO 02/22/17 Disposition: 01 DISCHARGE HOME Condition: Stable Aruna Townsend DO February 22, 2017 10:27
[2017-02-22] MEDS ORDERED: AZITHROMYCIN 250 MG TAB PO ONE (10:30)
[2017-02-22] MEDS ORDERED: SODIUM CHLOR 0.9% 1000 ML INJ 1,000 ML IV ONE (10:30)
[2017-02-22 11:14] VITALS: BP 105/64; PULSE 80; RESP 18; O2SAT 96
[2017-02-22] MEDS ORDERED: BENZ100 PO (11:17)
[2017-02-22] MEDS ORDERED: AZIT500T2 PO (11:17)
[2017-02-22] MEDS ORDERED: ALBUAER3 INH (11:17)
[2017-03-16] MEDS ORDERED: CLAR10CA3 PO (11:25)
[2017-03-22] MEDS ORDERED: DULO1CAP PO (13:24)
[2017-04-05] MEDS ORDERED: LANTINJ SQ (14:17)
== END 2017-02-22 11:35 | disposition home or self-care (01) ==
LOC: PHED 09:06
DX: J40 Bronchitis, not specified as acute or chronic (principal); N28.9 Disorder of kidney and ureter, unspecified; D64.9 Anemia, unspecified; J45.909 Unspecified asthma, uncomplicated; E11.9 Type 2 diabetes mellitus without complications; I10 Essential (primary) hypertension; I25.10 Atherosclerotic heart disease of native coronary artery without angina pectoris; K21.9 Gastro-esophageal reflux disease without esophagitis; E07.9 Disorder of thyroid, unspecified
CPT/HCPCS: 71020; 80048; 85025; 87804; 94664; 96360; 99283; J7030

== ENCOUNTER 2017-03-26 15:57 | Inpatient (IN) | payer MEDICARE, OTHER ==
[2017-03-26] VITALS (9 sets, daily range): BP systolic 87–114; BP diastolic 57–89; PULSE 72–80; RESP 16–18; TEMP 98.1–98.7; O2SAT 90–95
[~2017-03-26 15:57] MED LIST changes: +ALBUAER3 INH; +AZIT500T2 PO; +BENZ100 PO; +CLAR10CA3 PO; +DULO1CAP PO; -NITR100C4 PO; -ZOFR4TAB3 SL
[2017-03-26] MEDS ORDERED: SODIUM CHLORIDE 0.9% FLUSH 10 ML FLUSH IVF PRN (16:30)
[2017-03-26] MEDS ORDERED: SODIUM CHLOR 0.9% 1000 ML INJ 1,000 ML IV ONE ×2 (16:30→20:30)
[2017-03-26] MEDS ORDERED: DEXTROSE 50% IN WATER 50 ML VIAL(D50) IV PUSH ONE (16:30)
--- NOTE | 2017-03-26 16:36 | PD ---
HPI Chief Complaint: Neuro Symptoms/ Deficits Time Seen by Provider: 16:15 Travel History International Travel<30 days: No Contact w/Intl Traveler<30days: No Traveled to known affect area: No History of Present Illness HPI The patient was seen and examined in the presence of the nurse. This patient woke up this morning with frontal headache. She reports that she was having difficulty with gait and was listing to the right side. She feels weak but not in a specific arm or leg. She seems somewhat confused than its very challenging to obtain history from her. She reports history of stroke with right sided weakness in the past that had resolved. She doesn't have lingering deficits. No head injury or blood thinners or fever. Symptoms severity is moderate. No alleviating factors. Duration one day. PFSH Past Medical History Arthritis: Yes (JOINTS) Asthma: Yes Autoimmune Disease: No Blood Disorders: No Bipolar Disorder: Yes Anxiety: Yes Depression: Yes Heart Rhythm Problems: No Cancer: No Cardiac Catheterization: Yes Cardiovascular Problems: Yes (htn on meds took this am.) High Cholesterol: Yes Chemotherapy: No Chest Pain: No Congestive Heart Failure: No COPD: No Cerebrovascular Accident: Yes (CVA R 1997) Coronary Artery Disease: Yes Diabetes: Yes Diminished Hearing: No Endocrine: Yes Gastrointestinal Disorders: Yes (GASTROPARESIS) GERD: Yes Genitourinary: No Headaches: Yes (DAILY) Hepatitis: No Hiatal Hernia: Yes Heparin Induced Thrombocytopen: No Hypertension: Yes Immune Disorder: No Implanted Vascular Access Dvce: No Kidney Stones: Yes (PASSED 2, 2 EXTRACTED) Musculoskeletal: Yes Neurologic: Yes (DIABETIC COMA, DRANK 3 GALLONS ORANGE JUICE) Psychiatric: Yes Reproductive: No Respiratory: Yes (OCC INHALER USE) Immunizations Current: Yes (SHINGLES) Migraines: No Myocardial Infarction: No Radiation Therapy: No Renal Failure: No Seizures: No Sickle Cell Disease: No Sleep Apnea: No Thyroid Disease: Yes Ulcer: No ?: Not Menopausal: Yes Past Surgical History Abdominal Surgery: Yes (UMBILICAL HERNIA REPAIR,CHOLECYSTECTOMY) AICD: No Arteriovenous Shunt: No Cardiac Surgery: No Cholecystectomy: Yes Ear Surgery: No Endocrine Surgery: No Eye Surgery: Yes Genitourinary Surgery: Yes (2 KIDNEY STONE EXTRACTIONS) Gynecologic Surgery: Yes (HYSTERECTOMY) Hysterectomy: Yes Insulin Pump: No Joint Replacement: No Neurologic Surgery: No Oral Surgery: No Pacemaker: No Thoracic Surgery: No Other Surgery: Yes Social History Alcohol Use: No (DENIES) Tobacco Use: No Substance Use: No Allergies-Medications (Allergen,Severity, Reaction): Coded Allergies: Codeine (Verified Allergy, Intermediate, HIVES, 03/26/17) Prednisone (Verified Adverse Reaction, Severe, 03/26/17) INCREASES BLOOD GLUCOSE Reported Meds & Prescriptions Reported Meds & Active Scripts Active Duloxetine DR (Duloxetine HCl) 20 Mg Capdr 20 Mg PO BID Claritin (Loratadine) 10 Mg Cap 10 Mg PO DAILY Proair Hfa 8.5 GM Inh (Albuterol Sulfate) 90 Mcg/Act Aer 2 Puff INH Q4-6H PRN 108 mcg/actuation Lantus Solostar Pen Inj (Insulin Glargine) 300 Unit/3 Ml Pen 60 Units SQ HS Victoza Inj (Liraglutide Inj) 18 Mg/3 Ml Pen 1.8 Mg SQ DAILY Amlodipine (Amlodipine Besylate) 5 Mg Tab 5 Mg PO DAILY Metoprolol Tartrate 25 Mg Tab 0.5 Tab PO BID Topamax (Topiramate) 50 Mg Tab 50 Mg PO BID Lamotrigine 100 Mg Tab 100 Mg PO DAILY Gabapentin 300 Mg Cap 300 Mg PO TID Levothyroxine (Levothyroxine Sodium) 50 Mcg Tab 50 Mcg PO DAILY Pravastatin 20 Mg Tab 20 Mg PO DAILY Losartan (Losartan Potassium) 50 Mg Tab 50 Mg PO DAILY Aripiprazole 5 Mg Tab 5 Mg PO DAILY Cetirizine (Cetirizine HCl) 10 Mg Tab 10 Mg PO HS Clonazepam 0.5 Mg Tab 0.5 Mg PO TID PRN Tramadol (Tramadol HCl) 50 Mg Tab 1-3 Tab PO Q8H PRN Take 1-3 tablets at night as needed for pain. Before physical therapy, take 2-3 tablets to prevent pain during therapy. No more than 6 tablets in 24 hours. Urecholine (Bethanechol Chloride) 25 Mg Tab 25 Mg PO Q6HR Bentyl (Dicyclomine HCl) 20 Mg Tab 20 Mg PO QID Reported Cymbalta DR (Duloxetine HCl) 20 Mg Capdr 20 Mg PO BID Omeprazole 20 Mg Tab 20 Mg PO DAILY Review of Systems General / Constitutional: No: Fever Eyes: No: Visual changes HENT: Positive: Headaches, Lightheadedness Cardiovascular: No: Chest Pain or Discomfort Respiratory: No: Shortness of Breath Gastrointestinal: No: Abdominal Pain Genitourinary: No: Dysuria Musculoskeletal: Positive: Weakness, No: Pain Skin: No Rash Neurologic: Positive: Weakness, Dizziness, Headache, Change in Mentation Psychiatric: No: Depression Endocrine: No: Polydipsia Hematologic/Lymphatic: No: Easy Bruising Physical Exam Narrative GENERAL: Well-nourished, well-developed patient in no apparent distress. SKIN: Focused skin assessment reveals no rash and nodules. Skin is Warm and dry. HEAD: Atraumatic. Normocephalic. EYES: Pupils equal and round. No scleral icterus. No injection or drainage. ENT: No nasal bleeding or discharge. Mucous membranes pink and moist. NECK: Trachea midline. No JVD. No meningeal signs CARDIOVASCULAR: Regular rate and rhythm. No murmur appreciated. RESPIRATORY: No accessory muscle use. Clear to auscultation. Breath sounds equal bilaterally. GASTROINTESTINAL: Abdomen soft, non-tender, nondistended. Hepatic and splenic margins not palpable. MUSCULOSKELETAL: No obvious deformities. No clubbing. No cyanosis. No edema. NEUROLOGICAL: Awake and alert. Limited participation in the exam. Motor exams shows diffuse weakness and I don't feel she is giving much effort. There is no obvious asymmetry. Understandable speech. Impossible to test extraocular muscle function. She doesn't attempt to follow something moving in front of her. She says she can't see anything. This applies to either eye. It's impossible to test visual field. It may be she is just very confused. PSYCHIATRIC: Appropriate mood and affect; insight and judgment is reduced . Data Data Last Documented VS Vital Signs Date Time Temp Pulse Resp B/P Pulse Ox O2 Delivery O2 Flow Rate FiO2 03/26/17 17:56 75 18 114/89 95 Nasal Cannula 2 03/26/17 15:59 98.1 Orders Electrocardiogram (03/26/17 16:24) Prothrombin Time / Inr (Pt) (03/26/17 16:24) Act Partial Throm Time (Ptt) (03/26/17 16:24) Complete Blood Count With Diff (03/26/17 16:24) Basic Metabolic Panel (Bmp) (03/26/17 16:24) Drug Screen, Random Urine (03/26/17 16:24) Urinalysis - C+S If Indicated (6/11/17 16:24) Ct Brain W/O Iv Contrast(Rout) (03/26/17 16:24) Ecg Monitoring (03/26/17 16:24) Iv Access Insert/Monitor (03/26/17 16:24) Oximetry (03/26/17 16:24) Sodium Chloride 0.9% Flush (Ns Flush) (03/26/17 16:30) Sodium Chlor 0.9% 1000 Ml Inj (Ns 1000 M (03/26/17 16:30) Alcohol (Ethanol) (03/26/17 16:24) Dextrose 50% In Luann (Vial) Inj (D50w (Vi (03/26/17 16:30) Cath For Specimen (03/26/17 16:39) Urine Culture (03/26/17 17:15) Ceftriaxone Inj (Rocephin Inj) (03/26/17 18:15) Admit Order (Ed Use Only) (03/26/17 18:16) Labs Laboratory Tests Test 03/26/17 03/26/17 16:13 17:15 White Blood Count 9.4 TH/MM3 Red Blood Count 3.84 MIL/MM3 Hemoglobin 10.4 GM/DL Hematocrit 32.5 % Mean Corpuscular Volume 84.7 FL Mean Corpuscular Hemoglobin 27.2 PG Mean Corpuscular Hemoglobin 32.1 % Concent Red Cell Distribution Width 13.8 % Platelet Count 146 TH/MM3 Mean Platelet Volume 9.1 FL Neutrophils (%) (Auto) 63.4 % Lymphocytes (%) (Auto) 28.8 % Monocytes (%) (Auto) 4.4 % Eosinophils (%) (Auto) 2.7 % Basophils (%) (Auto) 0.7 % Neutrophils # (Auto) 5.9 TH/MM3 Lymphocytes # (Auto) 2.7 TH/MM3 Monocytes # (Auto) 0.4 TH/MM3 Eosinophils # (Auto) 0.3 TH/MM3 Basophils # (Auto) 0.1 TH/MM3 CBC Comment DIFF FINAL Differential Comment Prothrombin Time 10.7 SEC Prothromb Time International 1.0 RATIO Ratio Activated Partial 32.5 SEC Thromboplast Time Sodium Level 143 MEQ/L Potassium Level 3.8 MEQ/L Chloride Level 113 MEQ/L Carbon Dioxide Level 20.1 MEQ/L Anion Gap 10 MEQ/L Blood Urea Nitrogen 30 MG/DL Creatinine 3.90 MG/DL Estimat Glomerular Filtration 12 ML/MIN Rate Random Glucose 69 MG/DL Calcium Level 8.5 MG/DL Ethyl Alcohol Level LESS THAN 3 MG/DL Urine Collection Type CATH Urine Color FARHAT Urine Turbidity MOD Urine pH 6.0 Urine Specific [place] 1.006 Urine Protein 100 mg/dL Urine Glucose (UA) 100 mg/dL Urine Ketones NEG mg/dL Urine Occult Blood TRACE Urine Nitrite POS Urine Bilirubin NEG Urine Leukocyte Esterase LARGE Urine RBC 0-3 /hpf Urine WBC 50-99 /hpf Urine WBC Clumps MOD Urine Squamous Epithelial 0-5 /hpf Cells Urine Transitional Epithelial 0-5 /hpf Cells Urine Amorphous Sediment MOD Urine Bacteria MANY /hpf Microscopic Urinalysis Comment CATH-CULTURE IND Urine Collection Time 1710 Urine Opiates Screen NEG Urine Barbiturates Screen NEG Urine Amphetamines Screen NEG Urine Benzodiazepines Screen NEG Urine Cocaine Screen NEG Urine Cannabinoids Screen NEG MDM Medical Decision Making Medical Screen Exam Complete: Yes Emergency Medical Condition: Yes Medical Record Reviewed: Yes Differential Diagnosis Ischemic CVA, hemorrhagic CVA, atypical migraine Narrative Course I have reviewed the patient's electronic medical record. Reviewed her prior vital signs and she seems to have baseline very low blood pressure of around 90- 100 systolic This is a rather confusing presentation. It's unclear what is exactly happening here. IV placed I gave her a liter of normal saline IV bolus for systolic blood pressure of 87 CBC is normal Metabolic profile shows renal failure with creatinine of 3.9. Chart review reveals that it was 1.3 1 month ago LFTs are normal Alcohol is negative Urinalysis shows significant pyuria on a catheterized specimen. I gave her 1 g IV Rocephin Urine drug screen is negative Brain CT is negative I reviewed her EKG which shows sinus rhythm without ectopy Accu-Chek is 73 and I gave her half amp of D50 Blood pressure recheck is 114 systolic. She is good for her Sinus rhythm in the 70s Repeat Accu-Chek 113 This patient will require admission for further evaluation. She has a new onset of renal failure as well as altered mental status/lethargy and UTI I placed a call to the hospitalist to discuss She had 200 cc of urine in the bladder so does not have urinary retention/ obstruction Diagnosis Primary Impression: Acute renal failure Qualified Code: N17.9 - Acute renal failure, unspecified acute renal failure type Additional Impressions: Altered mental status, unspecified Urinary tract infection Qualified Code: N30.00 - Acute cystitis without hematuria Admitting Information Admitting Physician Requests: it Reyes Jones MD Mar 26, 2017 16:36
[2017-03-26 16:48] LABS: AUTOMATED NEUTROPHIL # 5.9 TH/MM3 (1.8-7.7); BASOPHIL # 0.1 TH/MM3 (0-0.2); BASOPHIL % 0.7 % (0.0-2.0); EOSINOPHIL # 0.3 TH/MM3 (0-0.4); EOSINOPHIL % 2.7 % (0.0-4.0); HEMATOCRIT 32.5 % (35.0-46.0); HEMO FLAGS DIFF FINAL; LYMPH % 28.8 % (9.0-44.0); LYMPHOCYTE # 2.7 TH/MM3 (1.0-4.8); MEAN CELL VOLUME 84.7 FL (80.0-100.0); MEAN CORPUSCULAR HEMOGLOBIN 27.2 PG (27.0-34.0); MEAN CORPUSCULAR HGB CONC 32.1 % (32.0-36.0); MONO % 4.4 % (0.0-8.0); NEUT % 63.4 % (16.0-70.0); PLATELET COUNT 146 TH/MM3 (150-450); RED BLOOD COUNT 3.84 MIL/MM3 (4.00-5.30); RED CELL DISTRIBUTION WIDTH 13.8 % (11.6-17.2); WHITE BLOOD COUNT 9.4 TH/MM3 (4.0-11.0)
[2017-03-26 16:59] LABS: CHLORIDE 113 MEQ/L (98-107); POTASSIUM 3.8 MEQ/L (3.5-5.1); SODIUM (NA) 143 MEQ/L (136-145)
[2017-03-26] MEDS ORDERED: DULO20 PO (17:00)
[2017-03-26 17:02] LABS: ANION GAP 10 MEQ/L (5-15); BICARBONATE 20.1 MEQ/L (21.0-32.0); BLOOD UREA NITROGEN 30 MG/DL (7-18)
[2017-03-26 17:04] LABS: APTT (PATIENT) 32.5 SEC (24.3-30.1); PROTHROMBIN TIME - PATIENT 10.7 SEC (9.8-11.6)
[2017-03-26 17:05] LABS: GLOMERULAR FILTRATION RATE 12 ML/MIN (>89)
--- NOTE | 2017-03-26 17:09 | RADHPO ---
EXAM DATE/TIME: 03/26/2017 16:45 [facility] COMPARISON: CT BRAIN W/O CONTRAST, February 24, 2015, 17:53. INDICATIONS : Right sided weakness with left sided head pain. RADIATION DOSE: 59.70 CTDIvol (mGy) MEDICAL HISTORY : Cerebrovascular disease. Hypertension. Renal calculi. SURGICAL HISTORY : Cholecystectomy. Hysterectomy. ENCOUNTER: Initial ACUITY: 1 day PAIN SCALE: 4/10 LOCATION: Left cranial TECHNIQUE: Multiple contiguous axial images were obtained of the head. Using automated exposure control and adj ustment of the mA and/or kV according to patient size, radiation dose was kept as low as reasonably a chievable to obtain optimal diagnostic quality images. FINDINGS: CEREBRUM: The ventricles are normal for age. No evidence of midline shift, mass lesion, hemorrhage or acute in farction. No extra-axial fluid collections are seen. POSTERIOR FOSSA: The cerebellum and brainstem are intact. The 4th ventricle is midline. The cerebellopontine angle i s unremarkable. EXTRACRANIAL: The visualized portion of the orbits is intact. SKULL: The calvaria is intact. No evidence of skull fracture. CONCLUSION: Negative noncontrast CT brain. Nikolay Monet MD on March 26, 2017 at 17:06 Board Certified Radiologist. This report was verified electronically.
[2017-03-26 17:40] LABS: BLOOD, URINE TRACE (NEG); GLUCOSE,URINE 100 mg/dL (NEG); KETONE, URINE NEG (NEG)
[2017-03-26 17:42] LABS: NITRITE,URINE POS (NEG)
[2017-03-26 17:48] LABS: METHOD OF COLLECTION CATH; URINE COLOR AMBER (YELLW/STRAW)
[2017-03-26 17:57] LABS: AMPHETAMINE, URINE NEG (NEG)
[2017-03-26 18:08] LABS: BARBITURATES, URINE NEG (NEG)
[2017-03-26 18:09] LABS: COCAINE, URINE NEG (NEG)
[2017-03-26 18:10] LABS: BACTERIA, URINE MANY /hpf; CULTURE IF INDICATED CATH CULTURE IND; RBC, URINE 0-3 /hpf (0-3)
[2017-03-26 18:12] LABS: COMMENT (UR) CATH-CULTURE IND; SQUAMOUS EPITHELIAL CELL URINE 0-5 /hpf (0-5)
[2017-03-26 18:13] LABS: COMMENT2 (UR) MUCOUS PRESENT; TRANSITIONAL EPI CELLS, URINE 0-5 /hpf
[2017-03-26] MEDS ORDERED: cefTRIAXone INJ 1,000 MG in SODIUM CHLORIDE 0.9% INJ 100 ML IV ONE (18:15)
[2017-03-26] MEDS: SODIUM CHLOR 0.9% 1000 ML INJ 1,000 ML IV SCH ×5 (18:48→23:36)
[2017-03-26] MEDS ORDERED: SODIUM CHLORIDE 0.9% FLUSH 10 ML FLUSH IV FLUSH PRN (19:00)
[2017-03-26] MEDS ORDERED: SENNOSIDES 8.6 MG TAB PO PRN (19:00)
[2017-03-26] MEDS ORDERED: ALBUTEROL SULFATE 90 MCG/ACT HFA 8 GM INHALER INH PRN (19:00)
[2017-03-26] MEDS ORDERED: BISACODYL 10 MG SUPP RECTAL PRN (19:00)
[2017-03-26] MEDS ORDERED: NALOXONE HCL 0.4 MG/ML AMP IV PRN (19:00)
[2017-03-26] MEDS ORDERED: LACTULOSE SYRUP 20 GM/30 ML CUP PO PRN (19:00)
[2017-03-26] MEDS ORDERED: MAGNESIUM HYDROXIDE SUSP 30 ML CUP PO PRN (19:00)
[2017-03-26] MEDS ORDERED: PILL SPLITTER OTHER PRN (19:15)
[2017-03-26] MEDS ORDERED: DEXTROSE 50% IN WATER 50 ML SYRINGE IV ONE (19:30)
[2017-03-26] MEDS ORDERED: GLUCAGON 1 MG/ML VIAL OTHER PRN (20:30)
[2017-03-26] MEDS ORDERED: DEXTROSE 50% IN WATER 50 ML VIAL(D50) IV PRN (20:30)
[2017-03-26] MEDS: INSULIN ASPART SUPPLEMENTAL SCALE SQ SCH (21:00)
[2017-03-26] MEDS: METOPROLOL TARTRATE 25 MG TAB PO SCH (21:00)
[2017-03-26] MEDS: SODIUM CHLORIDE 0.9% FLUSH 10 ML FLUSH IV FLUSH SCH (22:31)
[2017-03-26] MEDS: TOPIRAMATE 25 MG TAB PO SCH (22:31)
[2017-03-26] MEDS: HEPARIN SODIUM - SQ 10,000 UNITS/ML VIAL SQ SCH (22:31)
[2017-03-26] MEDS: DOCUSATE SODIUM 50 MG/SENNA 8.6 MG TAB PO SCH (22:31)
[2017-03-26] MEDS: ACETAMINOPHEN 325 MG TAB PO PRN (23:58)
[2017-03-27 00:54] VITALS: BP 95/60; PULSE 70; RESP 16; TEMP 96.8; O2SAT 96
[2017-03-27 04:25] VITALS: BP 111/85; PULSE 71; RESP 16; TEMP 97.5; O2SAT 97
[2017-03-27] MEDS: INSULIN ASPART SUPPLEMENTAL SCALE SQ SCH ×4 (06:24→21:00)
[2017-03-27 06:57] LABS: POTASSIUM 4.2 MEQ/L (3.5-5.1)
[2017-03-27 07:00] LABS: AUTOMATED NEUTROPHIL # 4.7 TH/MM3 (1.8-7.7); BASOPHIL % 0.2 % (0.0-2.0); EOSINOPHIL # 0.2 TH/MM3 (0-0.4); HEMATOCRIT 35.3 % (35.0-46.0); HEMO FLAGS DIFF FINAL; LYMPH % 32.2 % (9.0-44.0); LYMPHOCYTE # 2.5 TH/MM3 (1.0-4.8); MEAN CELL VOLUME 86.2 FL (80.0-100.0); MEAN CORPUSCULAR HEMOGLOBIN 27.1 PG (27.0-34.0); MEAN CORPUSCULAR HGB CONC 31.4 % (32.0-36.0); MONO % 4.1 % (0.0-8.0); NEUT % 60.5 % (16.0-70.0); PLATELET COUNT 142 TH/MM3 (150-450); RED BLOOD COUNT 4.09 MIL/MM3 (4.00-5.30); RED CELL DISTRIBUTION WIDTH 14.2 % (11.6-17.2); WHITE BLOOD COUNT 7.7 TH/MM3 (4.0-11.0)
[2017-03-27 07:03] LABS: BICARBONATE 19.7 MEQ/L (21.0-32.0)
[2017-03-27 08:00] VITALS: BP 99/65; PULSE 72; RESP 18; TEMP 96.2; O2SAT 98
[2017-03-27] MEDS: lamoTRIgine 100 MG TAB PO SCH (08:29)
[2017-03-27] MEDS: PANTOPRAZOLE SOD 20 MG DELAYED RELEASE TAB PO SCH (08:30)
[2017-03-27] MEDS: LEVOTHYROXINE SODIUM 50 MCG TAB PO SCH (08:30)
[2017-03-27] MEDS: DOCUSATE SODIUM 50 MG/SENNA 8.6 MG TAB PO SCH ×2 (08:31→20:13)
[2017-03-27] MEDS: METOPROLOL TARTRATE 25 MG TAB PO SCH ×2 (08:31→20:13)
[2017-03-27] MEDS: TOPIRAMATE 25 MG TAB PO SCH ×2 (08:31→20:13)
[2017-03-27] MEDS: HEPARIN SODIUM - SQ 10,000 UNITS/ML VIAL SQ SCH ×2 (08:35→20:13)
[2017-03-27] MEDS: SODIUM CHLORIDE 0.9% FLUSH 10 ML FLUSH IV FLUSH SCH ×2 (08:35→20:21)
[2017-03-27] MEDS: ARIPiprazole 5 MG TAB PO SCH (08:38)
--- NOTE | 2017-03-27 09:32 | RADHPO ---
EXAM DATE/TIME: 03/27/2017 07:41 [facility] COMPARISON: US LEG BILATERAL VENOUS DOPPLER, October 03, 2014, 19:16. EXTERNAL COMPARISON : [facility], CT ABDOMEN & PELVIS W CONTRAST, October 25, 2012 INDICATIONS : Increased BUN/Creatinine. MEDICAL HISTORY : Hypercholesterolemia. Hypertension. Gastroesophageal reflux disease. Thyroid disease. Hearing loss. D iabetic coma. Cerebrovascular accident. Coronary artery disease. Asthma. Gastroparesis. Hiatal hernia . Renal calculi. Arthritis. Diabetes. Bipolar disorder. Depression. Anxiety. Suicide attempt. Blood t ransfusion. SURGICAL HISTORY : Cholecystectomy. Hysterectomy. Cardiac catheterization. Umbilical hernia repair. Kidney stone remov al. Left knee repair. ENCOUNTER: Initial ACUITY: 2 days PAIN SCORE: 2/10 LOCATION: Bilateral flank MEASUREMENTS: RIGHT KIDNEY: 12.7 x 5.3 x 5.4 cm LEFT KIDNEY: 10.3 x 3.9 x 4.7 cm FINDINGS: RIGHT KIDNEY: There is mildly increased echogenicity of the renal cortex. There is no hydronephrosis or solid mass identified. LEFT KIDNEY: There is mildly increased echogenicity of the renal cortex. No solid mass or hydronephrosis identifie d. No stones are seen. BLADDER: Within normal limits given the degree of distension. CONCLUSION: 1. Echogenic renal cortex suggesting underlying medical renal disease. No findings to indicate obstru ction. No solid mass identified. Jarad Luevano MD on March 27, 2017 at 9:25 Board Certified Radiologist. This report was verified electronically.
--- NOTE | 2017-03-27 10:18 | MB ---
cc: YESI TEJEDA MD DATE OF CONSULTATION: 03/27/2017 REASON FOR CONSULTATION Elevated BUN and creatinine for evaluation. HISTORY OF PRESENT ILLNESS This is a 61-year-old female with a past medical history of anxiety, depression, bipolar disorder, bronchial asthma, history of cerebrovascular accident, ischemic heart disease, diabetes mellitus, gastroesophageal reflux disease, hypertension and history of renal stone, who came to the hospital because of dizziness, fell down at home and headache. I was called to see the patient because of elevated BUN and creatinine. The patient had a creatinine of 3.9 on presentation. Before that about a month ago she had a creatinine of 1.3 and in October it was 1.0. The patient claims that she has not been eating well for the last two weeks and has nausea, off and on has vomiting and has loose bowel motions almost 2-3 times per day. She also has some burning when she passes urine and she noticed some blood a few times in the last two weeks. There is no history of passing any renal stone recently. She has a past history of passing a kidney stone. Denies any history of fever. Denies taking any nonsteroidal anti-inflammatory drugs. No shortness of breath, no chest pain or palpitations. PAST MEDICAL HISTORY 1. Hypertension. 2. Diabetes mellitus. 3. Anxiety. 4. Depression. 5. Bipolar disorder. 6. Bronchial asthma. 7. History of cerebrovascular accident. 8. Gastroesophageal reflux disease. PAST SURGICAL HISTORY 1. Umbilical hernia repair. 2. Cholecystectomy. 3. Renal stone extraction. 4. Hysterectomy. REVIEW OF SYSTEMS The patient has generalized weakness, feeling tired. Has been feeling dizzy when she stands up and fell down twice at home. Has headache mainly in the frontal area and also associated with weakness which is mainly generalized. She has dysuria and off and on hematuria. There is no history of taking any nonsteroidal anti-inflammatory drugs. SOCIAL HISTORY There is no history of smoking or alcoholism. FAMILY HISTORY Noncontributory. ALLERGIES 1. CODEINE. 2. PREDNISONE. MEDICATIONS Currently she is on the following medications: 1. Normal saline at 100 mL an hour. 2. Theresa-Colace, one tablet b.i.d. 3. Lopressor 12.5 mg b.i.d. 4. Topamax 50 mg b.i.d. 5. Abilify 5 mg once a day. 6. Lamictal 100 mg once a day. 7. Synthroid 50 mcg daily. 8. Protonix 20 mg once a day. 9. Heparin 5000 units subcu q.12h. 10.Ceftriaxone one gram IV q.24h. 11.Insulin sliding scale. 12.Lactulose as needed. 13.Dulcolax as needed. PHYSICAL EXAMINATION GENERAL: On examination the patient is awake and alert. She is not in acute distress. VITAL SIGNS: Her last blood pressure was 99/65, temperature 96.2, oxygen saturation 98%. Her lowest blood pressure recorded during this admission was 87/60. HEENT: Pupils equally reacting to light. Non-icteric sclera. Conjunctiva pale. NECK: Supple. JVD is not elevated. LUNGS: The patient has bilateral decreased air entry with occasional wheezing. HEART: S1, S2, regular rhythm. ABDOMEN: Abdomen is distended, soft, lax. There is no tenderness. Bowel sounds positive. EXTREMITIES: No pedal edema. INVESTIGATIONS WBC count 7.7, hemoglobin 11.1, platelet count 142, neutrophils 60.5%, eosinophil 3%. Sodium 146, potassium 4.2, chloride 117, bicarb 19.7, BUN 29, creatinine 3.9, calcium 8.5, phosphorus 5.7, albumin 3.3. TSH 0.38. INR 1.0. Urinalysis showing protein of 100, glucose 100, trace occult blood, positive nitrite, wbc clumps, many bacteria. Toxicology screen was negative. Gabapentin level is pending. Previously she had immunology in 2013 with MAKENZIE positive. Urine culture pending. IMAGING STUDIES The patient had a CT scan of the brain done without IV contrast and shows no acute lesion. Ultrasound of the kidney is done which shows right kidney is 12.7 and the left is 10.3 cm with echogenic cortex, no indication of obstruction, no solid mass. ASSESSMENT 1. Acute kidney injury. 2. Urinary tract infection. 3. Hypotension and possible dehydration. 4. Diabetes mellitus. 5. History of hypertension. 6. Mild anemia. PLAN The patient has minimal proteinuria. Most likely the etiology of acute kidney injury is because of hypotension and ATN. I will check the urine sodium osmolality and since she has a history of MAKENZIE positive in the past I will recheck MAKENZIE and complement ANCA. Continue the IV fluid and antibiotics. Follow the urine output, BUN and creatinine. Avoid any nephrotoxins. Thank you for the consultation. I will follow the patient while she is in the hospital. MD MARIANO Linder/MARY /9:51 AM /10:06 AM
--- NOTE | 2017-03-27 11:25 | HHI.HP ---
[facility] Primary [facility] Physician Non-Staff Admission Diagnosis ARF,lethargy,UTI Diagnoses: Travel History International Travel<30 Days: No Contact w/Intl Traveler <30 Da: No Traveled to Known Affected Are: No History of Present Illness 61-year-old female with a history of diabetes, bipolar disorder, hypertension, who presents with acute onset confusion upon waking the morning of 03/26. She reports slurred speech, disorientation, extreme fatigue. She denies any chest pain, shortness of breath, vision changes, any focal signs or symptoms. Denies any new medications. She does report lightheadedness, feeling off balance with standing, as well as a dull frontal headache. She does report some intermittent dysuria and hematuria. Patient reports a two-week history of intermittent nausea with nonbloody emesis , as well as foul-smelling diarrhea 2-3 times per day. Denies any sick contacts. Denies any recent antibiotics. Review of Systems Performed and negative except for history of present illness and past medical history. Past Family Social History Past Medical History Hypertension Diabetes mellitus GERD Asthma Anxiety History of CVA Hypothyroidism History of bipolar disorder. Depression Hypokalemia History of nephrolithiasis Past Surgical History Cholecystectomy Umbilical hernia repair Kidney stone extraction Hysterectomy Reported Medications Reported Meds & Active Scripts Active Duloxetine DR (Duloxetine HCl) 20 Mg Capdr 20 Mg PO BID Claritin (Loratadine) 10 Mg Cap 10 Mg PO DAILY Proair Hfa 8.5 GM Inh (Albuterol Sulfate) 90 Mcg/Act Aer 2 Puff INH Q4-6H PRN 108 mcg/actuation Lantus Solostar Pen Inj (Insulin Glargine) 300 Unit/3 Ml Pen 60 Units SQ HS Victoza Inj (Liraglutide Inj) 18 Mg/3 Ml Pen 1.8 Mg SQ DAILY Amlodipine (Amlodipine Besylate) 5 Mg Tab 5 Mg PO DAILY Metoprolol Tartrate 25 Mg Tab 0.5 Tab PO BID Topamax (Topiramate) 50 Mg Tab 50 Mg PO BID Lamotrigine 100 Mg Tab 100 Mg PO DAILY Gabapentin 300 Mg Cap 300 Mg PO TID Levothyroxine (Levothyroxine Sodium) 50 Mcg Tab 50 Mcg PO DAILY Pravastatin 20 Mg Tab 20 Mg PO DAILY Losartan (Losartan Potassium) 50 Mg Tab 50 Mg PO DAILY Aripiprazole 5 Mg Tab 5 Mg PO DAILY Cetirizine (Cetirizine HCl) 10 Mg Tab 10 Mg PO HS Clonazepam 0.5 Mg Tab 0.5 Mg PO TID PRN Tramadol (Tramadol HCl) 50 Mg Tab 1-3 Tab PO Q8H PRN Take 1-3 tablets at night as needed for pain. Before physical therapy, take 2-3 tablets to prevent pain during therapy. No more than 6 tablets in 24 hours. Urecholine (Bethanechol Chloride) 25 Mg Tab 25 Mg PO Q6HR Bentyl (Dicyclomine HCl) 20 Mg Tab 20 Mg PO QID Reported Cymbalta DR (Duloxetine HCl) 20 Mg Capdr 20 Mg PO BID Omeprazole 20 Mg Tab 20 Mg PO DAILY Allergies: Coded Allergies: Codeine (Verified Allergy, Intermediate, HIVES, 03/26/17) Prednisone (Verified Adverse Reaction, Severe, 03/26/17) INCREASES BLOOD GLUCOSE Family History Family history reviewed with patient and found to be currently noncontributory. Social History Lifelong nonsmoker, nondrinker. Denies any illicit drugs. Lives with her family. Physical Exam Vital Signs Vital Signs Date Time Temp Pulse Resp B/P Pulse Ox O2 Delivery O2 Flow Rate FiO2 03/27/17 08:00 96.2 72 18 99/65 98 03/27/17 04:25 97.5 71 16 111/85 97 03/27/17 00:54 96.8 70 16 95/60 96 03/26/17 20:49 76 16 94 3 03/26/17 20:19 76 16 94/62 93 Nasal Cannula 2 03/26/17 20:00 98.7 73 18 98/70 95 03/26/17 19:35 72 16 95/58 94 Nasal Cannula 2 03/26/17 18:34 74 18 99/62 94 Nasal Cannula 2 03/26/17 17:56 75 18 114/89 95 Nasal Cannula 2 03/26/17 17:15 77 18 93/57 90 Nasal Cannula 2 03/26/17 16:32 95 Room Air 03/26/17 16:15 79 18 87/60 94 Room Air 03/26/17 16:15 80 93 Room Air 03/26/17 15:59 98.1 80 16 93/64 95 Physical Exam GENERAL: This is a well-nourished, well-developed patient, appears somnolent. She is alert to person, place. Not alert to year, date. SKIN: No rashes, ecchymoses or lesions. Cool and dry. HEAD: Atraumatic. Normocephalic. No temporal or scalp tenderness. EYES: Pupils equal round and reactive. Extraocular motions intact. No scleral icterus. No injection or drainage. ENT: Nose without bleeding, purulent drainage or septal hematoma. Throat without erythema, tonsillar hypertrophy or exudate. Uvula midline. Airway patent. NECK: Trachea midline. No JVD or lymphadenopathy. Supple, nontender, no meningeal signs. CARDIOVASCULAR: Regular rate and rhythm without murmurs, gallops, or rubs. RESPIRATORY: Clear to auscultation. Breath sounds equal bilaterally. No wheezes , rales, or rhonchi. GASTROINTESTINAL: Abdomen soft, non-tender, nondistended. No hepato-splenomegaly , or palpable masses. No guarding. MUSCULOSKELETAL: Extremities without clubbing, cyanosis, or edema. No joint tenderness, effusion, or edema noted. No calf tenderness. Negative Homans sign bilaterally. NEUROLOGICAL: Awake and alert. Cranial nerves II through XII intact. Motor and sensory grossly within normal limits. Five out of 5 muscle strength in all muscle groups. Normal speech. Laboratory Laboratory Tests Test 03/26/17 03/26/17 03/27/17 16:13 17:15 05:45 White Blood Count 9.4 7.7 Red Blood Count 3.84 4.09 Hemoglobin 10.4 11.1 Hematocrit 32.5 35.3 Mean Corpuscular Volume 84.7 86.2 Mean Corpuscular Hemoglobin 27.2 27.1 Mean Corpuscular Hemoglobin 32.1 31.4 Concent Red Cell Distribution Width 13.8 14.2 Platelet Count 146 142 Mean Platelet Volume 9.1 10.6 Neutrophils (%) (Auto) 63.4 60.5 Lymphocytes (%) (Auto) 28.8 32.2 Monocytes (%) (Auto) 4.4 4.1 Eosinophils (%) (Auto) 2.7 3.0 Basophils (%) (Auto) 0.7 0.2 Neutrophils # (Auto) 5.9 4.7 Lymphocytes # (Auto) 2.7 2.5 Monocytes # (Auto) 0.4 0.3 Eosinophils # (Auto) 0.3 0.2 Basophils # (Auto) 0.1 0.0 CBC Comment DIFF FINAL DIFF FINAL Differential Comment Prothrombin Time 10.7 Prothromb Time International 1.0 Ratio Activated Partial 32.5 Thromboplast Time Sodium Level 143 146 Potassium Level 3.8 4.2 Chloride Level 113 117 Carbon Dioxide Level 20.1 19.7 Anion Gap 10 9 Blood Urea Nitrogen 30 29 Creatinine 3.90 3.90 Estimat Glomerular Filtration 12 12 Rate Random Glucose 69 93 Calcium Level 8.5 8.5 Thyroid Stimulating Hormone 0.383 3rd Gen Ethyl Alcohol Level LESS THAN 3 Urine Collection Type CATH Urine Color FARHAT Urine Turbidity MOD Urine pH 6.0 Urine Specific Roland 1.006 Urine Protein 100 Urine Glucose (UA) 100 Urine Ketones NEG Urine Occult Blood TRACE Urine Nitrite POS Urine Bilirubin NEG Urine Leukocyte Esterase LARGE Urine RBC 0-3 Urine WBC 50-99 Urine WBC Clumps MOD Urine Squamous Epithelial 0-5 Cells Urine Transitional Epithelial 0-5 Cells Urine Amorphous Sediment MOD Urine Bacteria MANY Microscopic Urinalysis Comment CATH-CULTURE IND Urine Collection Time 1710 Urine Opiates Screen NEG Urine Barbiturates Screen NEG Urine Amphetamines Screen NEG Urine Benzodiazepines Screen NEG Urine Cocaine Screen NEG Urine Cannabinoids Screen NEG Urine Eosinophils NONE SEEN Urine Random Creatinine 45.5 Urine Random Sodium 29 Phosphorus Level 5.7 Albumin 3.3 Date/Time Procedure Status Source Growth 03/26/17 17:15 Urine Culture Received Urine Catheterized Urine Pending Result Diagram: 03/27/17 0545 03/27/17 0545 Imaging Last Impressions Renal Ultrasound 03/27/17 0000 Signed Impressions: Service Date/Time: Monday, March 27, 2017 07:41 - CONCLUSION: 1. Echogenic renal cortex suggesting underlying medical renal disease. No findings to indicate obstruction. No solid mass identified. Jarad Luevano MD Head CT 03/26/17 1624 Signed Impressions: Service Date/Time: Sunday, March 26, 2017 16:45 - CONCLUSION: Negative noncontrast CT brain. Nikolay Monet MD Assessment and Plan Assessment and Plan //Metabolic encephalopathy -Head CT negative on admission. Normal TSH. -Multifactorial, secondary to acute kidney injury, suspect gabapentin overload in setting of kidney injury. -Hold gabapentin. IV hydration. Continue to monitor. //Acute kidney injury -Potassium 3.9 on admission from normal baseline. -FENa 1.7%. -Renal ultrasound with echogenic kidneys bilaterally, without evidence of obstruction. -Likely secondary to dehydration from gastroenteritis -Continue IV fluids //Urinary tract infection -Kidney ultrasound without signs of obstruction -Continue ceftriaxone -Follow up urine culture. //Gastroenteritis -With diarrhea and nausea vomiting -IV fluids C. difficile, enteric pathogens ordered and pending. //Diabetes mellitus //Hypoglycemia -Blood glucose in the 60s on admission. Likely secondary to decreased insulin clearance in the setting of acute kidney injury. -Continue on low dose insulin sliding scale. Hold long-acting insulin. Diabetic diet. Close monitoring. //Chronic pain. Hold gabapentin in setting of encephalopathy //GERD. Continue home Protonix. //Hypertension. //With hypotension on admission -Blood pressure low but acceptable. Hold losartan in setting of acute kidney injury, hypertension Continue home metoprolol low-dose. -Continue to monitor blood pressure. //Bipolar disorder. Chronic. //Depression. Chronic. -Both chronic. - Continue home meds. //Hyperlipidemia. Chronic. Check LFTs. Hold statin for now //Asthma. Chronic. Continue home asthma inhaler //History of anxiety. Hold clonazepam in setting of encephalopathy //History of CVA //Hypothyroidism. Continue home replacement. //Hypernatremia. . Sodium 146. Likely secondary to we'll saline. Switch to one half normal saline. //Prophylaxis. Heparin subcutaneous Discussed Condition With pt , nurse. Physician Certification 2 Midnight Certification Type: Admission for Inpatient Services Order for Inpatient Services The services are ordered in accordance with Medicare regulations or non- Medicare payer requirements, as applicable. In the case of services not specified as inpatient-only, they are appropriately provided as inpatient services in accordance with the 2-midnight benchmark. Estimated LOS (days): 3 days is the estimated time the patient will need to remain in the hospital, assuming treatment plan goals are met and no additional complications. Post-Hospital Plan: Not yet determined Chuckie Cook MD Mar 27, 2017 11:25
--- NOTE | 2017-03-27 11:30 | EKG ---
Date Performed: 03/26/2017 Time Performed: 16:35:00 PTAGE: 61 years EKG: Sinus rhythm Normal ECG Anterior T-wave abnormality improved from prior tracing. PREVIOUS TRACING : 03/31/2016 18.12 DOCTOR: Pranav Guerra Interpretating Date/Time 03/27/2017 11:28:56
[2017-03-27] MEDS: SODIUM CHLOR 0.45% 1000 ML INJ 1,000 ML IV SCH ×3 (11:51→22:53)
[2017-03-27 12:00] VITALS: BP 100/64; PULSE 72; RESP 18; TEMP 96.5; O2SAT 99
[2017-03-27 12:04] LABS: INDIRECT BILIRUBIN 0.2 MG/DL (0.0-0.8); TOTAL BILIRUBIN ADULT 0.3 MG/DL (0.2-1.0)
[2017-03-27 16:00] VITALS: BP 114/69; PULSE 72; RESP 18; TEMP 97.8; O2SAT 99
[2017-03-27] MEDS: cefTRIAXone INJ 1,000 MG in SODIUM CHLORIDE 0.9% INJ 100 ML IV SCH (18:17)
[2017-03-27 20:00] VITALS: BP 116/71; PULSE 81; RESP 16; TEMP 98.9; O2SAT 99
[2017-03-27] MEDS: ACETAMINOPHEN 325 MG TAB PO PRN (22:57)
[2017-03-28] VITALS: BP 106/66; PULSE 78; RESP 18; TEMP 98.3; O2SAT 98
[2017-03-28 04:00] VITALS: BP 117/70; PULSE 68; RESP 16; TEMP 95.9; O2SAT 98
[2017-03-28] MEDS: INSULIN ASPART SUPPLEMENTAL SCALE SQ SCH ×4 (06:50→21:00)
[2017-03-28] MEDS: PANTOPRAZOLE SOD 20 MG DELAYED RELEASE TAB PO SCH (08:16)
[2017-03-28] MEDS: LEVOTHYROXINE SODIUM 50 MCG TAB PO SCH (08:17)
[2017-03-28] MEDS: TOPIRAMATE 25 MG TAB PO SCH ×2 (08:17→20:16)
[2017-03-28] MEDS: DOCUSATE SODIUM 50 MG/SENNA 8.6 MG TAB PO SCH ×2 (08:18→20:17)
[2017-03-28] MEDS: METOPROLOL TARTRATE 25 MG TAB PO SCH ×2 (08:18→20:16)
[2017-03-28] MEDS: lamoTRIgine 100 MG TAB PO SCH (08:18)
[2017-03-28] MEDS: ARIPiprazole 5 MG TAB PO SCH (08:18)
[2017-03-28 08:20] VITALS: BP 142/91; PULSE 72; RESP 19; TEMP 97.2; O2SAT 96
[2017-03-28] MEDS: SODIUM CHLORIDE 0.9% FLUSH 10 ML FLUSH IV FLUSH SCH ×2 (08:20→20:16)
[2017-03-28] MEDS: HEPARIN SODIUM - SQ 10,000 UNITS/ML VIAL SQ SCH ×2 (08:21→20:15)
[2017-03-28 09:41] LABS: AUTOMATED NEUTROPHIL # 4.6 TH/MM3 (1.8-7.7); BASOPHIL # 0.1 TH/MM3 (0-0.2); BASOPHIL % 2.1 % (0.0-2.0); EOSINOPHIL # 0.2 TH/MM3 (0-0.4); EOSINOPHIL % 3.1 % (0.0-4.0); HEMATOCRIT 29.4 % (35.0-46.0); HEMO FLAGS DIFF FINAL; LYMPH % 24.5 % (9.0-44.0); LYMPHOCYTE # 1.6 TH/MM3 (1.0-4.8); MEAN CELL VOLUME 86.2 FL (80.0-100.0); MEAN CORPUSCULAR HEMOGLOBIN 27.2 PG (27.0-34.0); MEAN CORPUSCULAR HGB CONC 31.5 % (32.0-36.0); NEUT % 67.3 % (16.0-70.0); PLATELET COUNT 118 TH/MM3 (150-450); RED BLOOD COUNT 3.41 MIL/MM3 (4.00-5.30); RED CELL DISTRIBUTION WIDTH 14.3 % (11.6-17.2); WHITE BLOOD COUNT 6.7 TH/MM3 (4.0-11.0)
[2017-03-28 10:10] LABS: POTASSIUM 4.3 MEQ/L (3.5-5.1)
[2017-03-28 10:13] LABS: BICARBONATE 17.6 MEQ/L (21.0-32.0)
--- NOTE | 2017-03-28 10:34 | HHI.PR ---
Subjective Remarks Patient seen this morning around 10 AM. Says she is feeling better. Says her confusion is improved, but not active baseline. Small loose bowel movement yesterday, too small for testing. She denies any chest pain or shortness of breath. Objective Vital Signs Date Time Temp Pulse Resp B/P Pulse Ox O2 Delivery O2 Flow Rate FiO2 03/28/17 08:20 97.2 72 19 142/91 96 03/28/17 04:00 95.9 68 16 117/70 98 03/28/17 00:00 98.3 78 18 106/66 98 03/27/17 20:00 98.9 81 16 116/71 99 03/27/17 16:00 97.8 72 18 114/69 99 03/27/17 12:00 96.5 72 18 100/64 99 I/O 03/27/17 03/27/17 03/27/17 03/28/17 03/28/17 03/28/17 07:00 15:00 23:00 07:00 15:00 23:00 Intake Total 1495 ml 600 ml 1284 ml 860 ml Output Total 500 ml 1000 ml Balance 1495 ml 600 ml 784 ml -140 ml Intake Oral 600 ml 860 ml IV Total 1495 ml 1284 ml Output Urine Total 500 ml 1000 ml # Voids 6 3 # Bowel Movements 3 2 0 Result Diagram: 03/28/1751903/28/17 0520 Objective Remarks GENERAL: Patient sitting up in bed. Appears comfortable. She is alert, oriented 3. SKIN: Warm and dry. HEAD: Normocephalic. EYES: No scleral icterus. No injection or drainage. NECK: Supple, trachea midline. No JVD. CARDIOVASCULAR: Regular rate and rhythm without murmurs, gallops, or rubs. RESPIRATORY: Breath sounds equal bilaterally. No accessory muscle use. GASTROINTESTINAL: Abdomen soft, non-tender, nondistended. MUSCULOSKELETAL: No cyanosis, or edema. BACK: Nontender without obvious deformity. No CVA tenderness. A/P Assessment and Plan =====03/28/17======= //Confusion much improved. Oriented 3, however still not back to baseline. Anal hold gabapentin //Double vision. Patient says she needs her glasses are home. Family to bring. //Hypernatremia. She has been on one half normal saline.. We'll start on sodium bicarbonate 40MEQ per liter. Recheck sodium this afternoon. //Diarrhea. No large bowel movements. Continue to await C. difficile testing. //Anemia. 9.3 from 10.4 on admission. Likely dilutional. No signs of bleeding. Monitor. //Acute kidney injury. //Non-anion gap metabolic acidosis secondary to kidney injury -Creatinine improving, however still 3.4. //UTI. Culture and sensitivities reviewed. Klebsiella sensitive to all but Macrobid. Continue ceftriaxone //Metabolic encephalopathy -Head CT negative on admission. Normal TSH. -Multifactorial, secondary to acute kidney injury, suspect gabapentin overload in setting of kidney injury. -Hold gabapentin. IV hydration. Continue to monitor. //Acute kidney injury -Potassium 3.9 on admission from normal baseline. -FENa 1.7%. -Renal ultrasound with echogenic kidneys bilaterally, without evidence of obstruction. -Likely secondary to dehydration from gastroenteritis -Continue IV fluids //Urinary tract infection -Kidney ultrasound without signs of obstruction -Continue ceftriaxone -klebsiella sensitive to all but Macrobid. Continue ceftriaxone. //Gastroenteritis -With diarrhea and nausea vomiting -IV fluids C. difficile, enteric pathogens ordered and pending. //Diabetes mellitus //Hypoglycemia -Blood glucose in the 60s on admission. Likely secondary to decreased insulin clearance in the setting of acute kidney injury. -Continue on low dose insulin sliding scale. Hold long-acting insulin. Diabetic diet. Close monitoring. //Chronic pain. Hold gabapentin in setting of encephalopathy //GERD. Continue home Protonix. //Hypertension. //With hypotension on admission -Blood pressure low but acceptable. Hold losartan in setting of acute kidney injury, hypertension Continue home metoprolol low-dose. -Continue to monitor blood pressure. //Bipolar disorder. Chronic. //Depression. Chronic. -Both chronic. - Continue home meds. //Hyperlipidemia. Chronic. Check LFTs. Hold statin for now //Asthma. Chronic. Continue home asthma inhaler //History of anxiety. Hold clonazepam in setting of encephalopathy //History of CVA. Findings on CT. Sounds to be an episode of hypoglycemia 17 years ago //Hypothyroidism. Continue home replacement. //Hypernatremia. . Sodium 146. Likely secondary to we'll saline. Switch to one half normal saline. //Prophylaxis. Heparin subcutaneous Discharge Planning Likely discharge tomorrow if renal function and mental status continues improving. Chuckie Cook MD Mar 28, 2017 10:34
[2017-03-28 13:27] VITALS: BP 145/92; PULSE 76; RESP 19; TEMP 97.8; O2SAT 98
[2017-03-28] MEDS: WATER STERILE FOR IV SCH ×2 (14:57→23:00)
[2017-03-28] MEDS: SODIUM BICARBONATE IV SCH ×2 (14:57→23:00)
--- NOTE | 2017-03-28 15:58 | HHI.NPPN ---
Subjective History of Present Illness 61-year-old female with a past medical history of anxiety, depression, bipolar disorder, bronchial asthma, history of cerebrovascular accident, ischemic heart disease, diabetes mellitus, gastroesophageal reflux disease, hypertension and history of renal stone, who came to the hospital because of dizziness, fell down at home and headache. I was called to see the patient because of elevated BUN and creatinine. Additional Remarks Patient is alert, feeling better, breathing improved. Review of Systems General Constitutional: Fatigue Respiratory Lungs: SOB Cardiovascular Cardiac: STEVENSON Objective Data Data 03/27/17 03/28/17 19:00 07:00 Intake Total 600 ml 2144 ml Output Total 1500 ml Balance 600 ml 644 ml Intake Oral 600 ml 860 ml IV Total 1284 ml Output Urine Total 1500 ml # Voids 3 # Bowel Movements 2 0 Vital Signs Date Time Temp Pulse Resp B/P Pulse Ox O2 Delivery O2 Flow Rate FiO2 03/28/17 13:27 97.8 76 19 145/92 98 03/28/17 08:20 97.2 72 19 142/91 96 03/28/17 04:00 95.9 68 16 117/70 98 03/28/17 00:00 98.3 78 18 106/66 98 03/27/17 20:00 98.9 81 16 116/71 99 03/27/17 16:00 97.8 72 18 114/69 99 -: 03/28/17 0520 03/28/17 0520 Physical Exam General Appearance: No Acute Distress, Comfortable Eyes Eye Exam: Pupils Equal Throat Throat Exam: Oral Mucosa [place] & Moist Neck Neck Exam: Neck Supple Pulmonary Resp Exam: Breath Sounds Equal, No Distress, Rhonchi, Decreased Bases Cardiology CV Exam: Regular, Normal Sinus Rhythm Gastrointestinal/Abdomen GI Exam: Soft, Non-Tender, Bowel Sounds Present Extremeties Extremities Exam: No Edema Neurologic Neuro Exam: Alert, Awake, Oriented Psychiatric Psych Exam: Appropriate Responses Assessment/Plan Assessment Summary: MARZENA/Acute Renal Failure, Dehydration, Hypotension Problem List: (1) Hypothyroidism (2) Diabetes mellitus (3) Anemia (4) Urinary tract infection (5) Acute renal failure Plan Urine out put is good. Creatinine improving. BP is better, Complements are normal. Continue IVF and antibiotics. Avoid Nephrotoxins. Follow urine out put and BMP. Problem Qualifiers (1) Diabetes mellitus: (2) Urinary tract infection: Qualified Code: N30.00 - Acute cystitis without hematuria (3) Acute renal failure: Qualified Code: N17.9 - Acute renal failure, unspecified acute renal failure type Coty Blandon MD Mar 28, 2017 15:58
[2017-03-28 17:16] LABS: POTASSIUM 4.5 MEQ/L (3.5-5.1)
[2017-03-28 17:19] LABS: BICARBONATE 18.9 MEQ/L (21.0-32.0)
[2017-03-28 17:42] VITALS: BP 127/78; PULSE 77; RESP 19; TEMP 98; O2SAT 96
[2017-03-28] MEDS: cefTRIAXone INJ 1,000 MG in SODIUM CHLORIDE 0.9% INJ 100 ML IV SCH (18:13)
[2017-03-28 20:00] VITALS: BP 128/88; PULSE 75; RESP 18; TEMP 97.5; O2SAT 97
[2017-03-28] MEDS: ACETAMINOPHEN 325 MG TAB PO PRN (20:16)
[2017-03-29] VITALS: BP 134/90; PULSE 63; RESP 16; TEMP 95.5; O2SAT 98
[2017-03-29] MEDS: ACETAMINOPHEN 325 MG TAB PO PRN (02:13)
[2017-03-29 04:00] VITALS: BP 116/74; PULSE 67; RESP 16; TEMP 96.5; O2SAT 96
[2017-03-29] MEDS: INSULIN ASPART SUPPLEMENTAL SCALE SQ SCH ×4 (06:41→21:32)
[2017-03-29 06:45] LABS: BASOPHIL % 0.5 % (0.0-2.0); EOSINOPHIL # 0.3 TH/MM3 (0-0.4); EOSINOPHIL % 4.4 % (0.0-4.0); HEMATOCRIT 30.6 % (35.0-46.0); HEMO FLAGS DIFF FINAL; LYMPH % 26.4 % (9.0-44.0); MEAN CELL VOLUME 84.7 FL (80.0-100.0); MEAN CORPUSCULAR HEMOGLOBIN 26.6 PG (27.0-34.0); MEAN CORPUSCULAR HGB CONC 31.4 % (32.0-36.0); MONO % 3.1 % (0.0-8.0); NEUT % 65.6 % (16.0-70.0); PLATELET COUNT 133 TH/MM3 (150-450); RED BLOOD COUNT 3.61 MIL/MM3 (4.00-5.30); RED CELL DISTRIBUTION WIDTH 13.8 % (11.6-17.2); WHITE BLOOD COUNT 7.5 TH/MM3 (4.0-11.0)
[2017-03-29 06:57] LABS: POTASSIUM 3.7 MEQ/L (3.5-5.1)
[2017-03-29 07:01] LABS: BICARBONATE 19.2 MEQ/L (21.0-32.0); MAGNESIUM 2.1 MG/DL (1.5-2.5)
[2017-03-29 08:25] VITALS: BP 134/81; PULSE 67; RESP 19; TEMP 98.2; O2SAT 99
[2017-03-29] MEDS: PANTOPRAZOLE SOD 20 MG DELAYED RELEASE TAB PO SCH ×2 (09:00→09:10)
[2017-03-29] MEDS: DOCUSATE SODIUM 50 MG/SENNA 8.6 MG TAB PO SCH ×2 (09:00→21:00)
[2017-03-29] MEDS: SODIUM CHLORIDE 0.9% FLUSH 10 ML FLUSH IV FLUSH SCH ×2 (09:00→21:00)
[2017-03-29] MEDS: lamoTRIgine 100 MG TAB PO SCH (09:10)
[2017-03-29] MEDS: HEPARIN SODIUM - SQ 10,000 UNITS/ML VIAL SQ SCH ×3 (09:10→21:12)
[2017-03-29] MEDS: LEVOTHYROXINE SODIUM 50 MCG TAB PO SCH (09:10)
[2017-03-29] MEDS: METOPROLOL TARTRATE 25 MG TAB PO SCH ×2 (09:11→21:12)
[2017-03-29] MEDS: ARIPiprazole 5 MG TAB PO SCH (09:11)
[2017-03-29] MEDS: TOPIRAMATE 25 MG TAB PO SCH ×2 (09:11→21:12)
--- NOTE | 2017-03-29 11:06 | HHI.FF ---
Face to Face Verification Diagnosis: (1) Acute renal failure (2) Diabetes mellitus (3) Altered mental status, unspecified (4) Hypertension (5) Renal insufficiency (6) Generalized weakness Physical Therapy Order: Evaluate and Treat Home Health Nursing Order: Medical education Diabetic education Nursing assessment with vital signs Instructions: Patient will need home health nurse for medication management Home Health Aide Order: To Assist In: Bathing and personal care I have seen patient Leonela Stephen on 03/29/17. My clinical findings support the need for the requested home health care services because: Deconditioned w/ increased weakness Med compliance is questionable I certify that my clinical findings support that this patient is homebound because: Unsafe to leave home unassisted Chuckie Cook MD Mar 29, 2017 11:06
[2017-03-29] MEDS ORDERED: WALKER WHEELS/F1 MIS (11:07)
[2017-03-29 12:03] VITALS: BP 135/80; PULSE 65; RESP 19; TEMP 98.2; O2SAT 99
--- NOTE | 2017-03-29 13:17 | HHI.PR ---
Subjective Remarks Patient seen this morning around 11 AM. Says she is feeling well. Daughter reports she is back to baseline. Patient denies any chest pain or shortness of breath. Objective Vital Signs Date Time Temp Pulse Resp B/P Pulse Ox O2 Delivery O2 Flow Rate FiO2 03/29/17 12:03 98.2 65 19 135/80 99 03/29/17 08:25 98.2 67 19 134/81 99 03/29/17 04:00 96.5 67 16 116/74 96 03/29/17 00:00 95.5 63 16 134/90 98 03/28/17 20:00 97.5 75 18 128/88 97 03/28/17 17:42 98.0 77 19 127/78 96 03/28/17 13:27 97.8 76 19 145/92 98 I/O 03/28/17 03/28/17 03/28/17 03/29/17 03/29/17 03/29/17 07:00 15:00 23:00 07:00 15:00 23:00 Intake Total 860 ml 623 ml 420 ml Output Total 1000 ml 3 ml Balance -140 ml 620 ml 420 ml Intake Oral 860 ml 240 ml IV Total 383 ml 420 ml Output Urine Total 1000 ml 3 ml # Bowel Movements 0 3 Result Diagram: 03/29/17 0600 03/29/17 0600 Objective Remarks GENERAL: Patient sitting up in bed. Appears comfortable. She is alert, oriented 3. Appears in good mood today. SKIN: Warm and dry. HEAD: Normocephalic. EYES: No scleral icterus. No injection or drainage. NECK: Supple, trachea midline. No JVD. CARDIOVASCULAR: Regular rate and rhythm without murmurs, gallops, or rubs. RESPIRATORY: Breath sounds equal bilaterally. No accessory muscle use. GASTROINTESTINAL: Abdomen soft, non-tender, nondistended. MUSCULOSKELETAL: No cyanosis, or edema. BACK: Nontender without obvious deformity. No CVA tenderness. A/P Assessment and Plan =====03/29/17======= //Confusion on admission. Resolved. Likely secondary to supratherapeutic gabapentin. Patient requests restart gabapentin. We'll restart low-dose twice daily. //Hypernatremia. Continues. Sodium 147 on sterile water with 40 M each use of bicarbonate. Discussed with nephrology. We'll address today. //Diarrhea. Resolved. Hard bowel movements. Canceled C. difficile. //Anemia. 9.6 from 10.4 on admission. Likely dilutional. Stable. No bleeding. //Acute kidney injury. //Non-anion gap metabolic acidosis secondary to kidney injury -Creatinine improving, however still 2.9. Nephrology following. Appreciate assistance. //UTI. Culture and sensitivities reviewed. Klebsiella sensitive to all but Macrobid. Continue ceftriaxone //Metabolic encephalopathy -Head CT negative on admission. Normal TSH. -Multifactorial, secondary to acute kidney injury, suspect gabapentin overload in setting of kidney injury. -Initially helped gabapentin, however restart low-dose.. IV hydration. Continue to monitor. //Acute kidney injury -Potassium 3.9 on admission from normal baseline. -FENa 1.7%. -Renal ultrasound with echogenic kidneys bilaterally, without evidence of obstruction. -Likely secondary to dehydration from gastroenteritis -Continue IV fluids //Urinary tract infection -Kidney ultrasound without signs of obstruction -Continue ceftriaxone -klebsiella sensitive to all but Macrobid. Continue ceftriaxone. //Gastroenteritis -Resolved. Hard bowel movements. DC C. difficile //Diabetes mellitus //Hypoglycemia -Blood glucose in the 60s on admission. Likely secondary to decreased insulin clearance in the setting of acute kidney injury. -Continue on low dose insulin sliding scale. Hold long-acting insulin. Diabetic diet. Close monitoring. //Chronic pain. Hold gabapentin in setting of encephalopathy //GERD. Continue home Protonix. //Hypertension. //With hypotension on admission -Blood pressure low but acceptable. Hold losartan in setting of acute kidney injury, hypertension Continue home metoprolol low-dose. -Continue to monitor blood pressure. //Bipolar disorder. Chronic. //Depression. Chronic. -Both chronic. - Continue home meds. //Hyperlipidemia. Chronic. Check LFTs. Hold statin for now //Asthma. Chronic. Continue home asthma inhaler //History of anxiety. Hold clonazepam in setting of encephalopathy //History of CVA. Findings on CT. Sounds to be an episode of hypoglycemia 17 years ago //Hypothyroidism. Continue home replacement. //Hypernatremia. . Sodium 147. This was secondary to normal saline, however has not resolved with 40 any cues of bicarbonate and sterile water, which is equivalent to Court normal saline. Nephrology following. //Prophylaxis. Heparin subcutaneous Discharge Planning Renal function still not improved enough for discharge. Probably ready for discharge to SNF tomorrow. She refuses SNF. Have ordered home health. Chuckie Cook MD Mar 29, 2017 13:17
[2017-03-29 13:43] LABS: INDIRECT BILIRUBIN 0.2 MG/DL (0.0-0.8); TOTAL BILIRUBIN ADULT 0.3 MG/DL (0.2-1.0)
[2017-03-29] MEDS ORDERED: SODIUM BICARBONATE IV SCH (15:00)
[2017-03-29] MEDS ORDERED: WATER STERILE FOR IV SCH (15:00)
--- NOTE | 2017-03-29 15:52 | HHI.NPPN ---
Subjective History of Present Illness 61-year-old female with a past medical history of anxiety, depression, bipolar disorder, bronchial asthma, history of cerebrovascular accident, ischemic heart disease, diabetes mellitus, gastroesophageal reflux disease, hypertension and history of renal stone, who came to the hospital because of dizziness, fell down at home and headache. I was called to see the patient because of elevated BUN and creatinine. Additional Remarks Patient is alert, feeling better, no SOB now, eating well. Review of Systems General Constitutional: Fatigue Respiratory Lungs: SOB Cardiovascular Cardiac: STEVENSON Objective Data Data 03/28/17 03/29/17 19:00 07:00 Intake Total 383 ml 660 ml Output Total 3 ml Balance 383 ml 657 ml Intake Oral 240 ml IV Total 383 ml 420 ml Output Urine Total 3 ml # Bowel Movements 3 Vital Signs Date Time Temp Pulse Resp B/P Pulse Ox O2 Delivery O2 Flow Rate FiO2 03/29/17 12:03 98.2 65 19 135/80 99 03/29/17 08:25 98.2 67 19 134/81 99 03/29/17 04:00 96.5 67 16 116/74 96 03/29/17 00:00 95.5 63 16 134/90 98 03/28/17 20:00 97.5 75 18 128/88 97 03/28/17 17:42 98.0 77 19 127/78 96 -: 03/29/17 0600 03/29/17 0600 Microbiology 03/28/17 - Final, Complete NO ENTERIC PATHOGENS DETECTED BY PCR... Physical Exam General Appearance: No Acute Distress, Comfortable Eyes Eye Exam: Pupils Equal Throat Throat Exam: Oral Mucosa [place] & Moist Neck Neck Exam: Neck Supple Pulmonary Resp Exam: Breath Sounds Equal, No Distress, Rhonchi, Decreased Bases Cardiology CV Exam: Regular, Normal Sinus Rhythm Gastrointestinal/Abdomen GI Exam: Soft, Non-Tender, Bowel Sounds Present Extremeties Extremities Exam: No Edema Neurologic Neuro Exam: Alert, Awake, Oriented Psychiatric Psych Exam: Appropriate Responses Assessment/Plan Assessment Summary: MARZENA/Acute Renal Failure, Dehydration, Hypotension Problem List: (1) Hypothyroidism (2) Diabetes mellitus (3) Anemia (4) Urinary tract infection (5) Acute renal failure Plan Urine out put is good. Creatinine continue to improve. BP is better, Complements are normal. Continue IVF and antibiotics. Avoid Nephrotoxins. Follow urine out put and BMP. Na. is 147, urine osm. is 179, urine out put is normal, no polyuria. Unlikely DI, give D5W. Problem Qualifiers (1) Diabetes mellitus: (2) Urinary tract infection: Qualified Code: N30.00 - Acute cystitis without hematuria (3) Acute renal failure: Qualified Code: N17.9 - Acute renal failure, unspecified acute renal failure type Coty Blandon MD Mar 29, 2017 15:52
[2017-03-29] MEDS: DEXTROSE 5% IN WATE 1000ML INJ 1,000 ML IV SCH (16:25)
[2017-03-29 16:35] VITALS: BP 145/83; PULSE 65; RESP 19; TEMP 98.6; O2SAT 99
[2017-03-29] MEDS: cefTRIAXone INJ 1,000 MG in SODIUM CHLORIDE 0.9% INJ 100 ML IV SCH (16:58)
[2017-03-29 20:00] VITALS: BP 119/83; PULSE 67; RESP 20; TEMP 97.1; O2SAT 100
[2017-03-29] MEDS: GABAPENTIN 100 MG CAP PO SCH (21:12)
[2017-03-29 22:41] LABS: HEMATOCRIT 27.4 % (35.0-46.0); REVIEW FLAG FINAL
[2017-03-30] VITALS: BP 111/70; PULSE 71; RESP 18; TEMP 97.4; O2SAT 99
[2017-03-30] MEDS: ACETAMINOPHEN 325 MG TAB PO PRN ×2 (03:06→04:06)
[2017-03-30] MEDS: DEXTROSE 5% IN WATE 1000ML INJ 1,000 ML IV SCH (03:55)
[2017-03-30 04:00] VITALS: BP 136/78; PULSE 74; RESP 18; TEMP 97.8; O2SAT 98
[2017-03-30 06:24] LABS: AUTOMATED NEUTROPHIL # 5.7 TH/MM3 (1.8-7.7); BASOPHIL # 0.1 TH/MM3 (0-0.2); BASOPHIL % 0.9 % (0.0-2.0); EOSINOPHIL # 0.4 TH/MM3 (0-0.4); EOSINOPHIL % 4.3 % (0.0-4.0); HEMATOCRIT 28.9 % (35.0-46.0); HEMO FLAGS DIFF FINAL; LYMPH % 26.8 % (9.0-44.0); LYMPHOCYTE # 2.4 TH/MM3 (1.0-4.8); MEAN CELL VOLUME 84.2 FL (80.0-100.0); MEAN CORPUSCULAR HEMOGLOBIN 27.4 PG (27.0-34.0); MEAN CORPUSCULAR HGB CONC 32.6 % (32.0-36.0); MONO % 4.1 % (0.0-8.0); NEUT % 63.9 % (16.0-70.0); PLATELET COUNT 154 TH/MM3 (150-450); RED BLOOD COUNT 3.44 MIL/MM3 (4.00-5.30); RED CELL DISTRIBUTION WIDTH 13.5 % (11.6-17.2)
[2017-03-30 06:32] LABS: POTASSIUM 3.3 MEQ/L (3.5-5.1)
[2017-03-30 06:38] LABS: BICARBONATE 19.3 MEQ/L (21.0-32.0); MAGNESIUM 1.8 MG/DL (1.5-2.5)
[2017-03-30] MEDS: INSULIN ASPART SUPPLEMENTAL SCALE SQ SCH (07:00)
[2017-03-30 08:00] VITALS: BP 127/86; PULSE 54; RESP 18; TEMP 97.4; O2SAT 98
[2017-03-30] MEDS: DOCUSATE SODIUM 50 MG/SENNA 8.6 MG TAB PO SCH (09:00)
[2017-03-30] MEDS: ARIPiprazole 5 MG TAB PO SCH (09:00)
[2017-03-30] MEDS: PANTOPRAZOLE SOD 20 MG DELAYED RELEASE TAB PO SCH (09:00)
[2017-03-30] MEDS: GABAPENTIN 100 MG CAP PO SCH (09:05)
[2017-03-30] MEDS: lamoTRIgine 100 MG TAB PO SCH (09:06)
[2017-03-30] MEDS: METOPROLOL TARTRATE 25 MG TAB PO SCH (09:06)
[2017-03-30] MEDS: LEVOTHYROXINE SODIUM 50 MCG TAB PO SCH (09:06)
[2017-03-30] MEDS: TOPIRAMATE 25 MG TAB PO SCH (09:07)
[2017-03-30] MEDS: HEPARIN SODIUM - SQ 10,000 UNITS/ML VIAL SQ SCH (09:07)
[2017-03-30] MEDS: SODIUM CHLORIDE 0.9% FLUSH 10 ML FLUSH IV FLUSH SCH (09:08)
--- NOTE | 2017-03-30 09:48 | HHI.NPPN ---
Subjective History of Present Illness 61-year-old female with a past medical history of anxiety, depression, bipolar disorder, bronchial asthma, history of cerebrovascular accident, ischemic heart disease, diabetes mellitus, gastroesophageal reflux disease, hypertension and history of renal stone, who came to the hospital because of dizziness, fell down at home and headache. I was called to see the patient because of elevated BUN and creatinine. Additional Remarks Patient is alert, breathing is better, eating well, clinically stable. Review of Systems General Constitutional: Fatigue Respiratory Lungs: SOB Cardiovascular Cardiac: STEVENSON Objective Data Data 03/29/17 03/30/17 19:00 07:00 Intake Total 2890 ml Balance 2890 ml Intake Oral 1890 ml IV Total 1000 ml # Voids 12 # Bowel Movements 5 Vital Signs Date Time Temp Pulse Resp B/P Pulse Ox O2 Delivery O2 Flow Rate FiO2 03/30/17 08:00 97.4 54 18 127/86 98 03/30/17 04:00 97.8 74 18 136/78 98 03/30/17 00:00 97.4 71 18 111/70 99 03/29/17 20:00 97.1 67 20 119/83 100 03/29/17 16:35 98.6 65 19 145/83 99 03/29/17 12:03 98.2 65 19 135/80 99 -: 03/30/17 0535 03/30/17 0535 Microbiology 03/30/17 Stool Occult Blood (DIOMEDES), Received Pending Physical Exam General Appearance: No Acute Distress, Comfortable Eyes Eye Exam: Pupils Equal Throat Throat Exam: Oral Mucosa [place] & Moist Neck Neck Exam: Neck Supple Pulmonary Resp Exam: Breath Sounds Equal, No Distress, Rhonchi, Decreased Bases Cardiology CV Exam: Regular, Normal Sinus Rhythm Gastrointestinal/Abdomen GI Exam: Soft, Non-Tender, Bowel Sounds Present Extremeties Extremities Exam: No Edema Neurologic Neuro Exam: Alert, Awake, Oriented Psychiatric Psych Exam: Appropriate Responses Assessment/Plan Assessment Summary: MARZENA/Acute Renal Failure, Dehydration, Hypotension Problem List: (1) Hypothyroidism (2) Diabetes mellitus (3) Anemia (4) Urinary tract infection (5) Acute renal failure Plan Urine out put is good. Creatinine continue to improve. BP is better, Complements are normal. Continue IVF and antibiotics. Creatinine continue to improve. Patient has MARZENA. Na. is now 146, told to drink more fluid. If D/C, this can be followed as out patient. Problem Qualifiers (1) Diabetes mellitus: (2) Urinary tract infection: Qualified Code: N30.00 - Acute cystitis without hematuria (3) Acute renal failure: Qualified Code: N17.9 - Acute renal failure, unspecified acute renal failure type Coty Blandon MD Mar 30, 2017 09:47 Coty Blandon MD Mar 30, 2017 09:47
[2017-03-30] MEDS ORDERED: CIPR500T2 PO (10:55)
[2017-03-30] MEDS ORDERED: LACTCAP8 PO (10:55)
--- NOTE | 2017-03-30 10:56 | HHI.DCPOC ---
Discharge Care Plan Diagnosis: (1) Urinary tract infection (2) Acute renal failure (3) Generalized weakness Goals to Promote Your Health * To prevent worsening of your condition and complications * To maintain your health at the optimal level Directions to Meet Your Goals Take your medications as prescribed Follow your dietary instruction Follow activity as directed Keep your appointments as scheduled Take your immunizations and boosters as scheduled If your symptoms worsen call your PCP, if no PCP go to Urgent Care Center or Emergency Room Smoking is Dangerous to Your Health. Avoid second hand smoke Call the 24-hour hour crisis hotline for domestic abuse at Deidra Deluca MD Mar 30, 2017 10:56
--- NOTE | 2017-03-30 11:00 | HHI.DS ---
Discharge Summary Admission Date Mar 26, 2017 at 18:17 Discharge Date: Mar 30, 2017 Admitting Diagnosis ARF,lethargy,UTI (1) Urinary tract infection ICD Code: N39.0 (2) Acute renal failure ICD Code: N17.9 (3) Generalized weakness ICD Code: R53.1 Procedures none Brief History - From Admission 61-year-old female with a history of diabetes, bipolar disorder, hypertension, who presents with acute onset confusion upon waking the morning of 03/26. She reports slurred speech, disorientation, extreme fatigue. She denies any chest pain, shortness of breath, vision changes, any focal signs or symptoms. Denies any new medications. She does report lightheadedness, feeling off balance with standing, as well as a dull frontal headache. She does report some intermittent dysuria and hematuria. Patient reports a two-week history of intermittent nausea with nonbloody emesis , as well as foul-smelling diarrhea 2-3 times per day. Denies any sick contacts. Denies any recent antibiotics. CBC/BMP: 03/30/17 0535 03/30/17 0535 Significant Findings Laboratory Tests Test 03/27/17 03/27/17 03/28/17 03/28/17 11:35 14:00 05:20 16:42 Alkaline Phosphatase 131 U/L (45-117) Total Protein 6.2 GM/DL (6.4-8.2) Albumin 3.0 GM/DL 2.8 GM/DL (3.4-5.0) (3.4-5.0) Lamotrigine (Lamictal) Level 2.8 mcg/mL (4.0-18.0) Urine Osmolality 179 MOSM/KG (300-1300) Red Blood Count 3.41 MIL/MM3 (4.00-5.30) Hemoglobin 9.3 GM/DL (11.6-15.3) Hematocrit 29.4 % (35.0-46.0) Mean Corpuscular Hemoglobin 31.5 % Concent (32.0-36.0) Platelet Count 118 TH/MM3 (150-450) Basophils (%) (Auto) 2.1 % (0.0-2.0) Sodium Level 148 MEQ/L 146 MEQ/L (136-145) (136-145) Chloride Level 119 MEQ/L 119 MEQ/L (98-107) (98-107) Carbon Dioxide Level 17.6 MEQ/L 18.9 MEQ/L (21.0-32.0) (21.0-32.0) Blood Urea Nitrogen 26 MG/DL (7-18) 27 MG/DL (7-18) Creatinine 3.40 MG/DL 3.20 MG/DL (0.50-1.00) (0.50-1.00) Estimat Glomerular Filtration 14 ML/MIN (>89) 15 ML/MIN (>89) Rate Random Glucose 110 MG/DL 136 MG/DL (74-106) (74-106) Test 03/29/17 03/29/17 03/30/17 06:00 22:30 05:35 Red Blood Count 3.61 MIL/MM3 3.44 MIL/MM3 (4.00-5.30) (4.00-5.30) Hemoglobin 9.6 GM/DL 9.1 GM/DL 9.4 GM/DL (11.6-15.3) (11.6-15.3) (11.6-15.3) Hematocrit 30.6 % 27.4 % 28.9 % (35.0-46.0) (35.0-46.0) (35.0-46.0) Mean Corpuscular Hemoglobin 26.6 PG (27.0-34.0) Mean Corpuscular Hemoglobin 31.4 % Concent (32.0-36.0) Platelet Count 133 TH/MM3 (150-450) Eosinophils (%) (Auto) 4.4 % (0.0-4.0) 4.3 % (0.0-4.0) Sodium Level 147 MEQ/L 146 MEQ/L (136-145) (136-145) Chloride Level 118 MEQ/L 116 MEQ/L (98-107) (98-107) Carbon Dioxide Level 19.2 MEQ/L 19.3 MEQ/L (21.0-32.0) (21.0-32.0) Blood Urea Nitrogen 29 MG/DL (7-18) 23 MG/DL (7-18) Creatinine 2.90 MG/DL 2.10 MG/DL (0.50-1.00) (0.50-1.00) Estimat Glomerular Filtration 16 ML/MIN (>89) 24 ML/MIN (>89) Rate Random Glucose 114 MG/DL 140 MG/DL (74-106) (74-106) Alkaline Phosphatase 127 U/L (45-117) Albumin 3.3 GM/DL 3.1 GM/DL (3.4-5.0) (3.4-5.0) Potassium Level 3.3 MEQ/L (3.5-5.1) Phosphorus Level 2.3 MG/DL (2.5-4.9) Imaging Last Impressions Renal Ultrasound 03/27/17 0000 Signed Impressions: Service Date/Time: Monday, March 27, 2017 07:41 - CONCLUSION: 1. Echogenic renal cortex suggesting underlying medical renal disease. No findings to indicate obstruction. No solid mass identified. Jarad Luevano MD Head CT 03/26/17 1624 Signed Impressions: Service Date/Time: Sunday, March 26, 2017 16:45 - CONCLUSION: Negative noncontrast CT brain. Nikolay Monet MD PE at Discharge GENERAL: This is a well-nourished, well-developed patient, in no apparent distress. CARDIOVASCULAR: Regular rate and rhythm without murmurs, gallops, or rubs. RESPIRATORY: Clear to auscultation. Breath sounds equal bilaterally. No wheezes , rales, or rhonchi. GASTROINTESTINAL: Abdomen soft, non-tender, nondistended. Normal active bowel sounds MUSCULOSKELETAL: Extremities without clubbing, cyanosis, or edema. NEURO: Alert & Oriented x4 to person, place, time, situation. Moves all ext x4 Pt update on day of discharge Patient seen today in follow-up for acute kidney injury and for urinary tract infection. She isn't doing better. Renal function improved. Discharge plans discussed with patient, nursing staff and case management. Hospital Course Patient is 61-year-old female came to the hospital with complaints of weakness. She was dehydrated and had evidence of acute kidney injury as well as urinary tract infection. Cultures were positive for Klebsiella pneumonia. Patient was treated properly for a diabetic with urinary tract infection. Repeat renal function improved with hydration and treatment of urinary tract infection. Patient was also seen by the nephrology team. There is no evidence of underlying renal dysfunction. Patient continued to recover with physical therapy team and with plans for home health care at discharge. Pt Condition on Discharge: Good Discharge Disposition: Disch w/ Home Health Serv Discharge Time: > 30 minutes Discharge Instructions Follow up Referrals: PCP Follow-up - 1 Week New Medications: Ciprofloxacin (Ciprofloxacin) 500 Mg Tab 500 MG PO BID Infection #6 Ref 0 TAB Lactobacillus Acidophilus (Probiotic) 1 Cap Cap 1 CAP PO TIDAC Nutritional Supplement #90 Ref 0 CAP Walker with Front Wheels (Walker with Front Wheels) 1 Mis Mis 1 EA .ROUTE DIRECTED #1 Ref 0 EA Continued Medications: Albuterol 8.5 GM Inh (Proair Hfa 8.5 GM Inh) 90 Mcg/Act Aer 2 PUFF INH Q4-6H 108 mcg/actuation PRN SHORTNESS OF BREATH #1 Ref 0 INHALER Amlodipine (Amlodipine) 5 Mg Tab 5 MG PO DAILY Blood Pressure Management #93 Ref 1 TAB Aripiprazole (Aripiprazole) 5 Mg Tab 5 MG PO DAILY #93 Ref 1 TAB Clonazepam (Clonazepam) 0.5 Mg Tab 0.5 MG PO TID PRN ANXIETY #[address] Ref [address] (Dul[address]etine DR) 20 Mg Capdr 20 MG PO BID #[address] (Cymbalta DR) 20 Mg Capdr 20 MG PO BID #30 Ref 0 CAP Gabapentin (Gabapentin) 300 Mg Cap 300 MG PO TID #180 Ref 5 CAP Insulin Glargine Inj (Lantus Solostar Pen Inj) 300 Unit/3 Ml Pen 60 UNITS SQ HS Blood Sugar Management #5 Ref 10 PEN Lamotrigine (Lamotrigine) 100 Mg Tab 100 MG PO DAILY Control Seizures #93 Ref 1 TAB Levothyroxine (Levothyroxine) 50 Mcg Tab 50 MCG PO DAILY Thyroid #93 Ref 1 TAB Liraglutide Inj (Victoza Inj) 18 Mg/3 Ml Pen 1.8 MG SQ DAILY #3 Ref 5 PEN Losartan (Losartan) 50 Mg Tab 50 MG PO DAILY Blood Pressure Management #93 Ref 1 TAB Metoprolol Tartrate (Metoprolol Tartrate) 25 Mg Tab 0.5 TAB PO BID #93 Ref 1 TAB Omeprazole (Omeprazole) 20 Mg Tab 20 MG PO DAILY #30 Ref 0 TAB Pravastatin (Pravastatin) 20 Mg Tab 20 MG PO DAILY Cholesterol Management #93 Ref 1 TAB Topiramate (Topamax) 50 Mg Tab 50 MG PO BID Control Seizures #180 Ref 1 TAB Tramadol (Tramadol) 50 Mg Tab 1-3 TAB PO Q8H Take 1-3 tablets at night as needed for pain. Before physical therapy, take 2-3 tablets to prevent pain during therapy. No more than 6 tablets in 24 hours. PRN PAIN #60 Ref 3 TAB Deidra Deluca MD Mar 30, 2017 11:00
[2017-03-31 07:52] LABS: MYELOPEROXIDASE LESS THAN 1.0 AI (<1.0); PROTEINASE-3 LESS THAN 1.0 AI (<1.0)
[2017-04-05] MEDS ORDERED: LANTINJ SQ (14:17)
== END 2017-03-30 12:05 | disposition home health service (06) | DRG 70 ==
LOC: PHED 15:57 → PHEDA 18:17 → PH3B 20:43
PROVIDERS: ADMIT Hospitalist; ATTEND Hospitalist
DX: G93.41 Metabolic encephalopathy (principal); J15.0 Pneumonia due to Klebsiella pneumoniae; N17.9 Acute kidney failure, unspecified; E87.0 Hyperosmolality and hypernatremia; E87.2 Acidosis; E11.649 Type 2 diabetes mellitus with hypoglycemia without coma; K31.84 Gastroparesis; I69.351 Hemiplegia and hemiparesis following cerebral infarction affecting right dominant side; E86.0 Dehydration; N39.0 Urinary tract infection, site not specified; E03.9 Hypothyroidism, unspecified; K52.9 Noninfective gastroenteritis and colitis, unspecified; D64.9 Anemia, unspecified; E78.5 Hyperlipidemia, unspecified; G89.29 Other chronic pain; H53.2 Diplopia; I10 Essential (primary) hypertension; I25.10 Atherosclerotic heart disease of native coronary artery without angina pectoris; J45.909 Unspecified asthma, uncomplicated; K21.9 Gastro-esophageal reflux disease without esophagitis; F31.9 Bipolar disorder, unspecified
CPT/HCPCS: 70450; 76775; 76937; 80048; 80069; 80076; 80171; 80175; 80201; 80307; 81001; 82272; 82533; 82550; 82570; 82948; 83735; 83935; 84300; 84443; 85014; 85018; 85025; 85610; 85730; 86021; 86038; 86160; 87077; 87086; 87186; 87205; 87506; 93005; 96361; 96374; J0696; J1644; J1815; J7030; J7070; P9612

== ENCOUNTER 2017-09-25 14:07 | Emergency (ER) | payer MEDICARE, OTHER ==
[~2017-09-25] VITALS: Ht 162.6 cm; Wt 67.0 kg
[~2017-09-25 14:07] MED LIST changes: -AZIT500T2 PO; -BENT20TA PO; -BENZ100 PO; -BETH25 PO; -CETI10 PO; -CLAR10CA3 PO; +IPRA17I INH; -LOPE2TAB3 PO; -LORA10TA PO; -OMEP20TA PO; +SULF1TAB23 PO; +WALKER WHEELS/F1 MIS
[2017-09-25 14:18] VITALS: BP 100/66; PULSE 89; RESP 16; TEMP 98.2; O2SAT 99
[2017-09-25 14:43] LABS: BLOOD, URINE NEG (NEG); GLUCOSE,URINE NEG (NEG); KETONE, URINE NEG (NEG); NITRITE,URINE NEG (NEG)
[2017-09-25 14:58] LABS: METHOD OF COLLECTION CLEAN CATCH
[2017-09-25 14:59] LABS: URINE COLOR YELLOW (YELLW/STRAW)
[2017-09-25 15:01] LABS: BACTERIA, URINE RARE /hpf; COMMENT (UR) CULTURE INDICATED; CULTURE IF INDICATED CULTURE INDICATED; SQUAMOUS EPITHELIAL CELL URINE 0-3 /hpf (0-5)
[2017-09-25] MEDS ORDERED: CIPR250T52 PO (15:23)
--- NOTE | 2017-09-25 15:23 | PD ---
HPI Chief Complaint: Complaint Time Seen by Provider: 15:23 Travel History International Travel<30 days: No Contact w/Intl Traveler<30days: No Traveled to known affect area: No History of Present Illness HPI 62-year-old female here with dysuria intermittently the last month. She reports she was treated for UTI by her PCP with Bactrim several weeks ago. She denies fever or chills. She denies abdominal pain or back pain. Symptom severity is moderate. Slightly relieved with OTC Azo. PFSH Past Medical History Arthritis: Yes (JOINTS) Asthma: Yes Autoimmune Disease: No Blood Disorders: No Bipolar Disorder: Yes Anxiety: Yes Depression: Yes Heart Rhythm Problems: No Cancer: No Cardiac Catheterization: Yes Cardiovascular Problems: Yes (htn) High Cholesterol: Yes Chemotherapy: No Chest Pain: No Congestive Heart Failure: No COPD: No Cerebrovascular Accident: Yes (CVA R 1997) Coronary Artery Disease: Yes Diabetes: Yes Patient Takes Glucophage: No Diminished Hearing: No Endocrine: Yes Gastrointestinal Disorders: Yes (GASTROPARESIS) GERD: Yes Genitourinary: No Headaches: Yes (DAILY) Hepatitis: No Hiatal Hernia: Yes Heparin Induced Thrombocytopen: No Hypertension: Yes Immune Disorder: No Implanted Vascular Access Dvce: No Kidney Stones: Yes (PASSED 2, 2 EXTRACTED) Musculoskeletal: Yes Neurologic: Yes (DIABETIC COMA, DRANK 3 GALLONS ORANGE JUICE) Psychiatric: Yes Reproductive: No Respiratory: Yes (OCC INHALER USE) Immunizations Current: Yes (SHINGLES) Migraines: No Myocardial Infarction: No Radiation Therapy: No Renal Failure: No Seizures: No Sickle Cell Disease: No Sleep Apnea: No Thyroid Disease: Yes Ulcer: No ?: Not Menopausal: Yes Past Surgical History Abdominal Surgery: Yes (UMBILICAL HERNIA REPAIR,CHOLECYSTECTOMY) AICD: No Arteriovenous Shunt: No Cardiac Surgery: No Cholecystectomy: Yes Ear Surgery: No Endocrine Surgery: No Eye Surgery: Yes Genitourinary Surgery: Yes (2 KIDNEY STONE EXTRACTIONS) Gynecologic Surgery: Yes (HYSTERECTOMY) Hysterectomy: Yes Insulin Pump: No Joint Replacement: No Neurologic Surgery: No Oral Surgery: No Pacemaker: No Thoracic Surgery: No Other Surgery: Yes Social History Alcohol Use: No (DENIES) Tobacco Use: No Substance Use: No Allergies-Medications (Allergen,Severity, Reaction): Coded Allergies: codeine (Unverified Allergy, Intermediate, HIVES, 09/25/17) prednisone (Unverified Adverse Reaction, Severe, 09/25/17) INCREASES BLOOD GLUCOSE Reported Meds & Prescriptions Reported Meds & Active Scripts Active Cipro (Ciprofloxacin HCl) 250 Mg Tab 250 Mg PO BID 7 Days Atrovent HFA 12.9 GM Inh (Ipratropium [place]) 17 Mcg/Actuation Aer 2 Puff INH Q6HR PRN Tramadol (Tramadol HCl) 50 Mg Tab 100 Mg PO Q8HR PRN Clonazepam 0.5 Mg Tab 0.5 Mg PO TID PRN Lantus Solostar Pen Inj (Insulin Glargine) 300 Unit/3 Ml Pen 60 Units SQ HS Duloxetine DR (Duloxetine HCl) 20 Mg Capdr 20 Mg PO BID Victoza Inj (Liraglutide Inj) 18 Mg/3 Ml Pen 1.8 Mg SQ DAILY Amlodipine (Amlodipine Besylate) 5 Mg Tab 5 Mg PO DAILY Metoprolol Tartrate 25 Mg Tab 0.5 Tab PO BID Topamax (Topiramate) 50 Mg Tab 50 Mg PO BID Lamotrigine 100 Mg Tab 100 Mg PO DAILY Gabapentin 300 Mg Cap 300 Mg PO TID Levothyroxine (Levothyroxine Sodium) 50 Mcg Tab 50 Mcg PO DAILY Losartan (Losartan Potassium) 50 Mg Tab 50 Mg PO DAILY Pravastatin 20 Mg Tab 20 Mg PO DAILY Aripiprazole 5 Mg Tab 5 Mg PO DAILY Walker with Front Wheels (Device) 1 Mis Mis 1 Ea .ROUTE DIRECTED Review of Systems Except as stated in HPI: all other systems reviewed are Neg General / Constitutional: No: Fever Eyes: No: Visual changes Cardiovascular: No: Chest Pain or Discomfort Respiratory: No: Shortness of Breath Gastrointestinal: No: Abdominal Pain Genitourinary: Positive: Dysuria Physical Exam Narrative SKIN: Warm and dry. Nontoxic appearing. HEAD: Normocephalic. EYES: No scleral icterus. No injection or drainage. NECK: Supple, trachea midline. No JVD or lymphadenopathy. CARDIOVASCULAR: Regular rate and rhythm without murmurs, gallops, or rubs. RESPIRATORY: Breath sounds equal bilaterally. No accessory muscle use. GASTROINTESTINAL: Abdomen soft, non-tender, nondistended. MUSCULOSKELETAL: No cyanosis, or edema. BACK: Nontender without obvious deformity. Generalized low back pain mild tenderness Data Data Last Documented VS Vital Signs Date Time Temp Pulse Resp B/P (MAP) Pulse Ox O2 Delivery O2 Flow Rate FiO2 09/25/17 14:18 98.2 89 16 100/66 (77) 99 Orders Orders Urinalysis - C+S If Indicated (09/25/17 14:10) Urine Culture (09/25/17 14:23) Labs Laboratory Tests Test 09/25/17 14:23 Urine Collection Type CLEAN CATCH Urine Color YELLOW Urine Turbidity CLEAR Urine pH 6.0 Urine Specific [place] 1.022 Urine Protein TRACE mg/dL Urine Glucose (UA) NEG mg/dL Urine Ketones NEG mg/dL Urine Occult Blood NEG Urine Nitrite NEG Urine Bilirubin NEG Urine Leukocyte Esterase SMALL Urine WBC 3-5 /hpf Urine WBC Clumps RARE Urine Squamous Epithelial Cells 0-3 /hpf Urine Bacteria RARE /hpf Microscopic Urinalysis Comment CULTURE INDICATED MDM Medical Decision Making Medical Screen Exam Complete: Yes Emergency Medical Condition: Yes Differential Diagnosis UTI, pyelonephritis, nephrolithiasis Narrative Course 62-year-old female here with dysuria intermittently the last month. She reports she was treated for UTI by her PCP with Bactrim several weeks ago. She denies fever or chills. She denies abdominal pain or back pain. UA is positive for infection. Her vital signs are stable. She is well-appearing. Patient be treated with Cipro. Diagnosis Primary Impression: UTI (urinary tract infection) Qualified Codes: N30.00 - Acute cystitis without hematuria Referrals: Primary Care Physician Additional Instructions: Follow-up with her primary doctor for recheck. Return if he developed new or worsening symptoms. Scripts Ciprofloxacin (Cipro) 250 Mg Tab 250 MG PO BID for Infection for 7 Days, #14 TAB 0 Refills Prov: Lianna Brice 09/25/17 Disposition: 01 DISCHARGE HOME Condition: Stable Lianna Brice Sep 25, 2017 15:23
[2017-10-02] MEDS ORDERED: TRAM50TA PO (14:37)
[2017-10-11] MEDS ORDERED: IPRA17I INH (12:21)
== END 2017-09-25 15:44 | disposition home or self-care (01) ==
LOC: PHEFT 14:07
DX: N30.00 Acute cystitis without hematuria (principal); B96.1 Klebsiella pneumoniae [K. pneumoniae] as the cause of diseases classified elsewhere; E11.9 Type 2 diabetes mellitus without complications; E78.00 Pure hypercholesterolemia, unspecified; I10 Essential (primary) hypertension; I25.10 Atherosclerotic heart disease of native coronary artery without angina pectoris; Z79.4 Long term (current) use of insulin
CPT/HCPCS: 81001; 87077; 87086; 87186; 99283

== ENCOUNTER 2017-11-01 16:04 | Emergency (ER) | payer MEDICARE, OTHER ==
[~2017-11-01] VITALS: Ht 162.6 cm; Wt 67.0 kg
[~2017-11-01 16:04] MED LIST changes: -ALBUAER3 INH; -AMLO5TAB2 PO; -SULF1TAB23 PO
[2017-11-01 16:08] VITALS: BP 111/95; PULSE 83; RESP 22; TEMP 98.6; O2SAT 98
[2017-11-01] MEDS ORDERED: RESP: ALBUTEROL 2.5 MG/IPRATROPIUM 0.5 MG NEB (SCH) INH ONE (17:30)
[2017-11-01] MEDS ORDERED: SODIUM CHLOR 0.9% 1000 ML INJ 1,000 ML IV SCH (17:30)
[2017-11-01] MEDS ORDERED: SODIUM CHLORIDE 0.9% FLUSH 10 ML FLUSH IVF PRN (17:30)
[2017-11-01] MEDS ORDERED: KETOROLAC TROMETHAMINE 30 MG/ML (IVP) VIAL IV PUSH ONE (17:30)
--- NOTE | 2017-11-01 17:32 | PD ---
HPI Chief Complaint: Cold / Flu Symptoms Time Seen by Provider: 17:12 Travel History International Travel<30 days: No Contact w/Intl Traveler<30days: No Traveled to known affect area: No History of Present Illness HPI 62-year-old female complains of persistent cough, shortness of breath and fever. Patient states that his symptoms started about 3 weeks ago. Patient has history of asthma and has been using her inhaler at home. Patient stated that she has low-grade fever intermittently at home. Patient states the cough is not persistent nonproductive. Patient denies any chest pain. Patient states that she has shortness of breath with that. Patient denies earache sore throat. Patient denies any headache. Patient denies states that she has abdominal wall pain from coughing. Patient States that she has occasional nausea vomiting with coughing. Patient denies any dysuria frequency. Patient states that she is allergic to codeine. Patient states that she avoid prednisone secondary to increased blood sugar. Patient has a history of hypertension, diabetes, status post CVA. PFSH Past Medical History Arthritis: Yes (JOINTS) Asthma: Yes Autoimmune Disease: No Blood Disorders: No Bipolar Disorder: Yes Anxiety: Yes Depression: Yes Heart Rhythm Problems: No Cancer: No Cardiac Catheterization: Yes Cardiovascular Problems: Yes (htn) High Cholesterol: Yes Chemotherapy: No Chest Pain: No Congestive Heart Failure: No COPD: No Cerebrovascular Accident: Yes (CVA R 1997) Coronary Artery Disease: Yes Diabetes: Yes Diminished Hearing: No Endocrine: Yes Gastrointestinal Disorders: Yes (GASTROPARESIS) GERD: Yes Genitourinary: No Headaches: Yes (DAILY) Hepatitis: No Hiatal Hernia: Yes Heparin Induced Thrombocytopen: No Hypertension: Yes Immune Disorder: No Implanted Vascular Access Dvce: No Kidney Stones: Yes (PASSED 2, 2 EXTRACTED) Musculoskeletal: Yes Neurologic: Yes (DIABETIC COMA, DRANK 3 GALLONS ORANGE JUICE) Psychiatric: Yes Reproductive: No Respiratory: Yes (OCC INHALER USE) Immunizations Current: Yes (SHINGLES) Migraines: No Myocardial Infarction: No Radiation Therapy: No Renal Failure: No Seizures: No Sickle Cell Disease: No Sleep Apnea: No Thyroid Disease: Yes Ulcer: No Menopausal: Yes Past Surgical History Abdominal Surgery: Yes (UMBILICAL HERNIA REPAIR,CHOLECYSTECTOMY) AICD: No Arteriovenous Shunt: No Cardiac Surgery: No Cholecystectomy: Yes Ear Surgery: No Endocrine Surgery: No Eye Surgery: Yes Genitourinary Surgery: Yes (2 KIDNEY STONE EXTRACTIONS) Gynecologic Surgery: Yes (HYSTERECTOMY) Hysterectomy: Yes Insulin Pump: No Joint Replacement: No Neurologic Surgery: No Oral Surgery: No Pacemaker: No Thoracic Surgery: No Other Surgery: Yes Social History Alcohol Use: No (DENIES) Tobacco Use: No Substance Use: No Allergies-Medications (Allergen,Severity, Reaction): Coded Allergies: codeine (Unverified Allergy, Intermediate, HIVES, 11/01/17) prednisone (Unverified Adverse Reaction, Severe, 11/01/17) INCREASES BLOOD GLUCOSE coconut (Verified Adverse Reaction, Intermediate, Diarrhea, 11/01/17) Reported Meds & Prescriptions Reported Meds & Active Scripts Active Atrovent HFA 12.9 GM Inh (Ipratropium [place]) 17 Mcg/Actuation Aer 2 Puff INH Q6HR PRN Clonazepam 0.5 Mg Tab 0.5 Mg PO TID PRN Lantus Solostar Pen Inj (Insulin Glargine) 300 Unit/3 Ml Pen 60 Units SQ HS Duloxetine DR (Duloxetine HCl) 20 Mg Capdr 20 Mg PO BID Victoza Inj (Liraglutide Inj) 18 Mg/3 Ml Pen 1.8 Mg SQ DAILY Metoprolol Tartrate 25 Mg Tab 0.5 Tab PO BID Topamax (Topiramate) 50 Mg Tab 50 Mg PO BID Lamotrigine 100 Mg Tab 100 Mg PO DAILY Gabapentin 300 Mg Cap 300 Mg PO TID Levothyroxine (Levothyroxine Sodium) 50 Mcg Tab 50 Mcg PO DAILY Losartan (Losartan Potassium) 50 Mg Tab 50 Mg PO DAILY Pravastatin 20 Mg Tab 20 Mg PO DAILY Aripiprazole 5 Mg Tab 5 Mg PO DAILY Tramadol (Tramadol HCl) 50 Mg Tab 100 Mg PO Q8HR PRN Walker with Front Wheels (Device) 1 Mis Mis 1 Ea .ROUTE DIRECTED Review of Systems General / Constitutional: Positive: Fever Eyes: No: Visual changes HENT: No: Headaches Cardiovascular: No: Chest Pain or Discomfort Respiratory: Positive: Cough, Shortness of Breath Gastrointestinal: Positive: Nausea, Vomiting, Abdominal Pain Genitourinary: No: Dysuria Musculoskeletal: No: Pain Skin: No Rash Neurologic: No: Weakness Psychiatric: No: Depression Endocrine: No: Polydipsia Hematologic/Lymphatic: No: Easy Bruising Physical Exam Narrative GENERAL: Well-nourished, well-developed patient. SKIN: Focused skin assessment warm/dry. HEAD: Normocephalic. EYES: No scleral icterus. No injection or drainage. NECK: Supple, trachea midline. No JVD or lymphadenopathy. CARDIOVASCULAR: Regular rate and rhythm without murmurs, gallops, or rubs. RESPIRATORY: Breath sounds equal bilaterally. No accessory muscle use. Mild expiratory wheezes bilaterally. Few rhonchi at the bases. GASTROINTESTINAL: Abdomen soft, nondistended. Patient has mild tenderness on palpation abdominal wall upper abdomen. No rebound tenderness. No mass. MUSCULOSKELETAL: No cyanosis, or edema. BACK: Nontender without obvious deformity. No CVA tenderness. Neurologic exam normal. Data Data Last Documented VS Vital Signs Date Time Temp Pulse Resp B/P (MAP) Pulse Ox O2 Delivery O2 Flow Rate FiO2 11/01/17 18:56 98 11/01/17 18:56 Room Air 11/01/17 16:08 98.6 83 22 111/95 (100) Orders Orders Sodium Chlor 0.9% 1000 Ml Inj (Ns 1000 M (11/01/17 17:30) Ketorolac Inj (Toradol Inj) (11/01/17 17:30) Complete Blood Count With Diff (11/01/17 17:18) Basic Metabolic Panel (Bmp) (11/01/17 17:18) Influenzae A/B Antigen (11/01/17 17:18) Iv Access Insert/Monitor (11/01/17 17:18) Ecg Monitoring (11/01/17 17:18) Oximetry (11/01/17 17:18) Chest, Single Ap (11/01/17 17:18) Sodium Chloride 0.9% Flush (Ns Flush) (11/01/17 17:30) Albuterol-Ipratropium Neb (Duoneb Neb) (11/01/17 17:30) Labs Laboratory Tests Test 11/01/17 17:30 11/01/17 17:50 Blood Urea Nitrogen 16 MG/DL Creatinine 1.10 MG/DL Random Glucose 113 MG/DL Calcium Level 9.1 MG/DL Sodium Level 140 MEQ/L Potassium Level 4.1 MEQ/L Chloride Level 113 MEQ/L Carbon Dioxide Level 19.6 MEQ/L Anion Gap 7 MEQ/L Estimat Glomerular Filtration Rate 50 ML/MIN White Blood Count 9.3 TH/MM3 Red Blood Count 4.00 MIL/MM3 Hemoglobin 10.8 GM/DL Hematocrit 34.1 % Mean Corpuscular Volume 85.4 FL Mean Corpuscular Hemoglobin 27.0 PG Mean Corpuscular Hemoglobin Concent 31.7 % Red Cell Distribution Width 13.2 % Platelet Count 228 TH/MM3 Mean Platelet Volume 9.6 FL Neutrophils (%) (Auto) 64.2 % Lymphocytes (%) (Auto) 29.1 % Monocytes (%) (Auto) 2.9 % Eosinophils (%) (Auto) 3.0 % Basophils (%) (Auto) 0.8 % Neutrophils # (Auto) 5.9 TH/MM3 Lymphocytes # (Auto) 2.7 TH/MM3 Monocytes # (Auto) 0.3 TH/MM3 Eosinophils # (Auto) 0.3 TH/MM3 Basophils # (Auto) 0.1 TH/MM3 CBC Comment DIFF FINAL Differential Comment MDM Medical Decision Making Medical Screen Exam Complete: Yes Emergency Medical Condition: Yes Interpretation(s) Last Impressions Chest X-Ray 11/01/17 [id number] Signed Impressions: Service Date/Time: Wednesday, November 01, 2017 17:45 - CONCLUSION: No acute disease. Nikolay Macias Jr., MD 19 12 PM. CBC within normal limits. Bicarb 19.6. Creatinine 1.10. Influenza AB antigen negative. Differential Diagnosis Differential diagnoses including URI, bronchitis, pneumonia, acute exacerbation of asthma. Narrative Course 62-year-old female with persistent productive cough, fever, shortness of breath. History of asthma. Albuterol with Atrovent unit dose treatment 1. Zithromax 500 mg p.o. given. Diagnosis Primary Impression: Bronchitis Additional Impression: Acute asthma exacerbation Qualified Codes: J45.41 - Moderate persistent asthma with (acute) exacerbation Patient Instructions: General Instructions Additional Instructions: Z-Cristopher as directed. Continue with albuterol inhalers as directed. Follow-up with personal physician. Return if worse. Med/Other Pt SpecificInfo: Prescription(s) given Scripts Azithromycin (Zithromax Z-Cristopher) 250 Mg Dspk 250 MG PO DIRECTED for Infection, #1 DSPK 0 Refills 500 MG (2 tabs) day 1, then 1 tab days 2-5. Prov: Alexx Lopez MD 11/01/17 Benzonatate (Tessalon Perles) 100 Mg Cap 200 MG PO TID Y for COUGH, #30 CAP 0 Refills Prov: Alexx Lopez MD 11/01/17 Disposition: 01 DISCHARGE HOME Condition: Stable Alexx Lopez MD Nov 01, 2017 17:32
[2017-11-01 18:00] LABS: BICARBONATE 19.6 MEQ/L (21.0-32.0); CALCIUM 9.1 MG/DL (8.5-10.1)
--- NOTE | 2017-11-01 18:00 | RADRPT ---
EXAM DATE/TIME: 11/01/2017 17:45 [facility] COMPARISON: CHEST SINGLE AP, May 03, 2015, 21:24. INDICATIONS : Short of breath. MEDICAL HISTORY : Hypercholesterolemia. Hypertension. Gastroesophageal reflux disease. Cerebrovascular accident. [place] artery disease. Asthma. SURGICAL HISTORY : Cholecystectomy. Hysterectomy. Cardiac catheterization. Umbilical hernia repair. ENCOUNTER: Initial ACUITY: 1 day PAIN SCORE: 0/10 LOCATION: Bilateral chest FINDINGS: A single view of the chest demonstrates the lungs to be symmetrically aerated without evidence of mas s, infiltrate or effusion. The cardiomediastinal contours are unremarkable. Osseous structures are intact. CONCLUSION: No acute disease. Nikolay Macias Jr., MD on November 01, 2017 at 17:57 Board Certified Radiologist. This report was verified electronically.
[2017-11-01 18:04] LABS: CREATININE 1.1 MG/DL (0.50-1.00)
[2017-11-01 18:56] VITALS: O2SAT 98
[2017-11-01 19:07] LABS: AUTOMATED NEUTROPHIL # 5.9 TH/MM3 (1.8-7.7); BASOPHIL # 0.1 TH/MM3 (0-0.2); BASOPHIL % 0.8 % (0.0-2.0); EOSINOPHIL # 0.3 TH/MM3 (0-0.4); HEMATOCRIT 34.1 % (35.0-46.0); HEMOGLOBIN 10.8 GM/DL (11.6-15.3); LYMPH % 29.1 % (9.0-44.0); LYMPHOCYTE # 2.7 TH/MM3 (1.0-4.8); MEAN CELL VOLUME 85.4 FL (80.0-100.0); MEAN CORPUSCULAR HGB CONC 31.7 % (32.0-36.0); MEAN PLATELET VOLUME 9.6 FL (7.0-11.0); MONO % 2.9 % (0.0-8.0); MONOCYTE # 0.3 TH/MM3 (0-0.9); NEUT % 64.2 % (16.0-70.0); PLATELET COUNT 228 TH/MM3 (150-450); RED CELL DISTRIBUTION WIDTH 13.2 % (11.6-17.2); WHITE BLOOD COUNT 9.3 TH/MM3 (4.0-11.0)
[2017-11-01] MEDS ORDERED: AZITHROMYCIN 250 MG TAB PO ONE (19:15)
[2017-11-01] MEDS ORDERED: BENZ100 PO (19:18)
[2017-11-01] MEDS ORDERED: ZITHTAB PO (19:18)
[2017-11-01 19:30] VITALS: BP 142/85; TEMP 98.8
== END 2017-11-01 19:31 | disposition home or self-care (01) ==
LOC: PHED 16:04
DX: J40 Bronchitis, not specified as acute or chronic (principal); J45.41 Moderate persistent asthma with (acute) exacerbation; R50.9 Fever, unspecified; R11.2 Nausea with vomiting, unspecified; I10 Essential (primary) hypertension; E11.9 Type 2 diabetes mellitus without complications; F31.9 Bipolar disorder, unspecified; F41.8 Other specified anxiety disorders; E78.00 Pure hypercholesterolemia, unspecified; I25.10 Atherosclerotic heart disease of native coronary artery without angina pectoris; K21.9 Gastro-esophageal reflux disease without esophagitis; E07.9 Disorder of thyroid, unspecified; Z79.4 Long term (current) use of insulin; Z86.73 Personal history of transient ischemic attack (TIA), and cerebral infarction without residual deficits; Z87.39 Personal history of other diseases of the musculoskeletal system and connective tissue; Z87.19 Personal history of other diseases of the digestive system
CPT/HCPCS: 71045; 80048; 85025; 87804; 96374; 99284; J1885; J7030

== ENCOUNTER 2017-11-22 08:39 | Emergency (ER) | payer MEDICARE ==
[~2017-11-22 08:39] MED LIST changes: +BENZ100 PO; +ZITHTAB PO
[2017-11-22 08:43] VITALS: BP 114/73; PULSE 83; RESP 16; TEMP 98.1; O2SAT 100
[2017-11-22] MEDS ORDERED: BACT800T5 PO (09:04)
--- NOTE | 2017-11-22 09:04 | PD ---
HPI Chief Complaint: Cold / Flu Symptoms Time Seen by Provider: 08:47 Travel History International Travel<30 days: No Contact w/Intl Traveler<30days: No Traveled to known affect area: No History of Present Illness HPI This 62-year-old female says she has had diarrhea for the last 4 days. She she says she is going quite frequently. She has been taking Imodium without much relief. She has had sinus congestion and has tenderness and pain of her face. She has had sinus infection in the past. She has a history of asthma and diabetes. She was seen here on November 01 with a diagnosis of bronchitis and has been on Zithromax and Tessalon. PFSH Past Medical History Arthritis: Yes (JOINTS) Asthma: Yes Autoimmune Disease: No Blood Disorders: No Bipolar Disorder: Yes Anxiety: Yes Depression: Yes Heart Rhythm Problems: No Cancer: No Cardiac Catheterization: Yes Cardiovascular Problems: Yes (htn) High Cholesterol: Yes Chemotherapy: No Chest Pain: No Congestive Heart Failure: No COPD: No Cerebrovascular Accident: Yes (CVA R 1997) Coronary Artery Disease: Yes Diabetes: Yes Patient Takes Glucophage: Yes Diminished Hearing: No Endocrine: Yes Gastrointestinal Disorders: Yes (GASTROPARESIS) GERD: Yes Genitourinary: No Headaches: Yes (DAILY) Hepatitis: No Hiatal Hernia: Yes Heparin Induced Thrombocytopen: No Hypertension: Yes Immune Disorder: No Implanted Vascular Access Dvce: No Kidney Stones: Yes (PASSED 2, 2 EXTRACTED) Musculoskeletal: Yes Neurologic: Yes (DIABETIC COMA, DRANK 3 GALLONS ORANGE JUICE) Psychiatric: Yes Reproductive: No Respiratory: Yes (OCC INHALER USE) Immunizations Current: Yes (SHINGLES) Migraines: No Myocardial Infarction: No Radiation Therapy: No Renal Failure: No Seizures: No Sickle Cell Disease: No Sleep Apnea: No Thyroid Disease: Yes Ulcer: No Tetanus Vaccination: < 5 Years ?: Not Menopausal: Yes Past Surgical History Abdominal Surgery: Yes (UMBILICAL HERNIA REPAIR,CHOLECYSTECTOMY) AICD: No Arteriovenous Shunt: No Cardiac Surgery: No Cholecystectomy: Yes Ear Surgery: No Endocrine Surgery: No Eye Surgery: Yes Genitourinary Surgery: Yes (2 KIDNEY STONE EXTRACTIONS) Gynecologic Surgery: Yes (HYSTERECTOMY) Hysterectomy: Yes Insulin Pump: No Joint Replacement: No Neurologic Surgery: No Oral Surgery: No Pacemaker: No Thoracic Surgery: No Other Surgery: Yes Social History Alcohol Use: No (DENIES) Tobacco Use: No Substance Use: No Allergies-Medications (Allergen,Severity, Reaction): Coded Allergies: codeine (Unverified Allergy, Intermediate, HIVES, 11/22/17) prednisone (Unverified Adverse Reaction, Severe, 11/22/17) INCREASES BLOOD GLUCOSE coconut (Verified Adverse Reaction, Intermediate, Diarrhea, 11/22/17) Reported Meds & Prescriptions Reported Meds & Active Scripts Active Zithromax Z-Cristopher (Azithromycin) 250 Mg Dspk 250 Mg PO DIRECTED 500 MG (2 tabs) day 1, then 1 tab days 2-5. Tessalon Perles (Benzonatate) 100 Mg Cap 200 Mg PO TID PRN Atrovent HFA 12.9 GM Inh (Ipratropium [place]) 17 Mcg/Actuation Aer 2 Puff INH Q6HR PRN Clonazepam 0.5 Mg Tab 0.5 Mg PO TID PRN Lantus Solostar Pen Inj (Insulin Glargine) 300 Unit/3 Ml Pen 60 Units SQ HS Duloxetine DR (Duloxetine HCl) 20 Mg Capdr 20 Mg PO BID Victoza Inj (Liraglutide Inj) 18 Mg/3 Ml Pen 1.8 Mg SQ DAILY Metoprolol Tartrate 25 Mg Tab 0.5 Tab PO BID Topamax (Topiramate) 50 Mg Tab 50 Mg PO BID Lamotrigine 100 Mg Tab 100 Mg PO DAILY Gabapentin 300 Mg Cap 300 Mg PO TID Levothyroxine (Levothyroxine Sodium) 50 Mcg Tab 50 Mcg PO DAILY Losartan (Losartan Potassium) 50 Mg Tab 50 Mg PO DAILY Pravastatin 20 Mg Tab 20 Mg PO DAILY Aripiprazole 5 Mg Tab 5 Mg PO DAILY Tramadol (Tramadol HCl) 50 Mg Tab 100 Mg PO Q8HR PRN Walker with Front Wheels (Device) 1 Mis Mis 1 Ea .ROUTE DIRECTED Review of Systems General / Constitutional: No: Fever, Chills Eyes: No: Drainage, Pain HENT: Positive: Sore Throat, Rhinitis Respiratory: No: Cough Gastrointestinal: Positive: Diarrhea, No: Vomiting Genitourinary: No: Frequency Neurologic: No: Weakness, Dizziness Hematologic/Lymphatic: No: Easy Bruising Physical Exam Narrative GENERAL: Well-developed female SKIN: Focused skin assessment warm/dry. HEAD: Atraumatic. Normocephalic. EYES: Pupils equal and round. No scleral icterus. No injection or drainage. ENT: No nasal bleeding. There is erythema of the nasal mucosa and nasal drainage mucous membranes pink and moist. There is tenderness over the maxillary and frontal sinuses NECK: Trachea midline. No JVD. CARDIOVASCULAR: Regular rate and rhythm. No murmur appreciated. RESPIRATORY: No accessory muscle use. Clear to auscultation. Breath sounds equal bilaterally. GASTROINTESTINAL: Abdomen soft, non-tender, nondistended. Hepatic and splenic margins not palpable. MUSCULOSKELETAL: No obvious deformities. No clubbing. No cyanosis. No edema. NEUROLOGICAL: Awake and alert. No obvious cranial nerve deficits. Motor grossly within normal limits. Normal speech. PSYCHIATRIC: Appropriate mood and affect; insight and judgment normal. Data Data Last Documented VS Vital Signs Date Time Temp Pulse Resp B/P (MAP) Pulse Ox O2 Delivery O2 Flow Rate FiO2 11/22/17 08:43 98.1 83 16 114/73 (87) 100 MDM Medical Decision Making Medical Screen Exam Complete: Yes Emergency Medical Condition: Yes Medical Record Reviewed: Yes Differential Diagnosis Differential includes enteritis, sinusitis Narrative Course Exam is consistent with sinusitis. She will be put on Bactrim 1 twice daily Diagnosis Primary Impression: Acute sinusitis Scripts Sulfamethoxazole-Trimethoprim (Bactrim DS) 800-160 Mg Tab 1 TAB PO BID for Infection, #14 TAB 0 Refills Prov: Peter Hawthorne MD 11/22/17 Disposition: 01 DISCHARGE HOME Condition: Stable Peter Hawthorne MD Nov 22, 2017 09:04
== END 2017-11-22 09:11 | disposition home or self-care (01) ==
LOC: PHED 08:39
DX: J01.90 Acute sinusitis, unspecified (principal); I10 Essential (primary) hypertension; E78.00 Pure hypercholesterolemia, unspecified; I25.10 Atherosclerotic heart disease of native coronary artery without angina pectoris; J45.909 Unspecified asthma, uncomplicated; E11.9 Type 2 diabetes mellitus without complications; K21.9 Gastro-esophageal reflux disease without esophagitis; F31.9 Bipolar disorder, unspecified; Z86.73 Personal history of transient ischemic attack (TIA), and cerebral infarction without residual deficits; Z87.442 Personal history of urinary calculi; Z88.5 Allergy status to narcotic agent; Z88.8 Allergy status to other drugs, medicaments and biological substances; Z79.4 Long term (current) use of insulin; Z79.899 Other long term (current) drug therapy
CPT/HCPCS: 99283

== ENCOUNTER 2018-01-25 08:48 | Emergency (ER) | payer MEDICARE, MEDICAID ==
[~2018-01-25] VITALS: Ht 162.6 cm; Wt 74.0 kg
[~2018-01-25 08:48] MED LIST changes: +BACT800T5 PO; -BENZ100 PO; -ZITHTAB PO
[2018-01-25 08:53] VITALS: BP 136/70; PULSE 78; RESP 16; TEMP 97.9; O2SAT 97
--- NOTE | 2018-01-25 10:00 | PD ---
HPI Chief Complaint: Cold / Flu Symptoms Time Seen by Provider: 09:21 Travel History International Travel<30 days: No Contact w/Intl Traveler<30days: No Traveled to known affect area: No History of Present Illness HPI 62-year-old female here with productive cough 1 week. She reports symptoms started as a mild upper respiratory infection and progressed to a cough with green sputum. Denies fever chills. No change in blood sugars. Denies chest pain or shortness of breath. She believes this is bronchitis. Symptom severity is moderate. No aggravating or alleviating factors. Patient has history of asthma and is using her albuterol inhaler with minimal relief. Allergy to prednisone reporting the last 3 times she has taking it her blood sugars have been over 800 requiring hospitalization. PFSH Past Medical History Arthritis: Yes (JOINTS) Asthma: Yes Autoimmune Disease: No Blood Disorders: No Bipolar Disorder: Yes Anxiety: Yes Depression: Yes Heart Rhythm Problems: No Cancer: No Cardiac Catheterization: Yes Cardiovascular Problems: Yes (htn on meds) High Cholesterol: Yes Chemotherapy: No Chest Pain: No Congestive Heart Failure: No COPD: No Cerebrovascular Accident: Yes (cva) Coronary Artery Disease: Yes Diabetes: Yes (type 1) Patient Takes Glucophage: No Diminished Hearing: No Endocrine: Yes Gastrointestinal Disorders: Yes (GASTROPARESIS) GERD: Yes Genitourinary: No Headaches: Yes (DAILY) Hepatitis: No Hiatal Hernia: Yes Heparin Induced Thrombocytopen: No Hypertension: Yes Immune Disorder: No Implanted Vascular Access Dvce: No Kidney Stones: Yes (PASSED 2, 2 EXTRACTED) Musculoskeletal: Yes Neurologic: Yes Psychiatric: Yes Reproductive: No Respiratory: Yes (asthma) Immunizations Current: Yes (SHINGLES) Migraines: No Myocardial Infarction: No Pneumonia: Yes Radiation Therapy: No Renal Failure: No Seizures: No Sickle Cell Disease: No Sleep Apnea: No Thyroid Disease: Yes Ulcer: No Tetanus Vaccination: > 5 Years Influenza Vaccination: Yes ?: Not Menopausal: Yes Past Surgical History Abdominal Surgery: Yes (UMBILICAL HERNIA REPAIR,CHOLECYSTECTOMY) AICD: No Arteriovenous Shunt: No Cardiac Surgery: No Cholecystectomy: Yes Ear Surgery: No Endocrine Surgery: No Eye Surgery: Yes Genitourinary Surgery: Yes (2 KIDNEY STONE EXTRACTIONS) Gynecologic Surgery: Yes (HYSTERECTOMY, bilat cyst removed from breasts) Hysterectomy: Yes Insulin Pump: No Joint Replacement: No Neurologic Surgery: No Oral Surgery: No Pacemaker: No Thoracic Surgery: No Other Surgery: Yes Social History Alcohol Use: No (DENIES) Tobacco Use: No (hx of cigs) Substance Use: No Allergies-Medications (Allergen,Severity, Reaction): Coded Allergies: codeine (Unverified Allergy, Intermediate, HIVES, 01/25/18) prednisone (Unverified Adverse Reaction, Severe, 01/25/18) INCREASES BLOOD GLUCOSE coconut (Verified Adverse Reaction, Intermediate, Diarrhea, 01/25/18) Reported Meds & Prescriptions Reported Meds & Active Scripts Active Atrovent HFA 12.9 GM Inh (Ipratropium [place]) 17 Mcg/Actuation Aer 2 Puff INH Q6HR PRN Clonazepam 0.5 Mg Tab 0.5 Mg PO TID PRN Lantus Solostar Pen Inj (Insulin Glargine) 300 Unit/3 Ml Pen 60 Units SQ HS Duloxetine DR (Duloxetine HCl) 20 Mg Capdr 20 Mg PO BID Victoza Inj (Liraglutide Inj) 18 Mg/3 Ml Pen 1.8 Mg SQ DAILY Metoprolol Tartrate 25 Mg Tab 0.5 Tab PO BID Topamax (Topiramate) 50 Mg Tab 50 Mg PO BID Lamotrigine 100 Mg Tab 100 Mg PO DAILY Gabapentin 300 Mg Cap 300 Mg PO TID Levothyroxine (Levothyroxine Sodium) 50 Mcg Tab 50 Mcg PO DAILY Losartan (Losartan Potassium) 50 Mg Tab 50 Mg PO DAILY Pravastatin 20 Mg Tab 20 Mg PO DAILY Aripiprazole 5 Mg Tab 5 Mg PO DAILY Tramadol (Tramadol HCl) 50 Mg Tab 100 Mg PO Q8HR PRN Walker with Front Wheels (Device) 1 Mis Mis 1 Ea .ROUTE DIRECTED Physical Exam Narrative GENERAL: Alert and well-appearing 62-year-old female. Resting comfortably on a stretcher. No distress. SKIN: Warm and dry. HEAD: Normocephalic. EYES: No scleral icterus. No injection or drainage. NECK: Supple, trachea midline. No JVD or lymphadenopathy. CARDIOVASCULAR: Regular rate and rhythm without murmurs, gallops, or rubs. RESPIRATORY: Breath sounds equal bilaterally. No accessory muscle use. Rhonchorous cough with mild expiratory wheeze. GASTROINTESTINAL: Abdomen soft, non-tender, nondistended. MUSCULOSKELETAL: No cyanosis, or edema. BACK: Nontender without obvious deformity. No CVA tenderness. Data Data Last Documented VS Vital Signs Date Time Temp Pulse Resp B/P (MAP) Pulse Ox O2 Delivery O2 Flow Rate FiO2 01/25/18 09:01 16 01/25/18 08:53 97.9 78 136/70 (92) 97 Orders Orders Albuterol Neb (Albuterol Neb) (01/25/18 10:00) MDM Medical Decision Making Medical Screen Exam Complete: Yes Emergency Medical Condition: Yes Differential Diagnosis Pneumonia, bronchitis, asthma Narrative Course 62-year-old female here with reported cough 1 week. Her vital signs are stable. She is nontoxic appearing. She was given an albuterol treatment and reports symptom improvement. According to patient she is unable to take steroids. She will be treated with azithromycin and encouraged to continue her albuterol inhaler. Return options were discussed. Patient verbalized understanding and agrees to plan Diagnosis Primary Impression: Bronchitis Referrals: Primary Care Physician Additional Instructions: Medications as directed. Follow-up with your primary doctor for recheck. Return to the emergency department if you develop new or worsening symptoms. Scripts Dextromethorphan-Promethazine Liq (Promethazine-Dextromethorphan Liq) 6.25-15 Mg /5 Ml Syrp 10 ML PO Q6HR Y for COUGH, #120 ML Prov: Lianna Brice 01/25/18 Azithromycin (Azithromycin) 250 Mg Tab 250 MG PO DIRECTED for Infection, #6 TAB 0 Refills Take 2 tabs (500 mg) on day 1 then 1 tab daily x 4 days. Prov: Lianna Brice 01/25/18 Disposition: 01 DISCHARGE HOME Condition: Stable Lianna Brice Jan 25, 2018 10:00
[2018-01-25] MEDS: RESP: ALBUTEROL 2.5 MG/3 ML NEB (SCH) INH ×2 (10:08→10:09)
[2018-01-25] MEDS ORDERED: PROMSYP3 PO (10:30)
[2018-01-25] MEDS ORDERED: AZIT250T3 PO (10:30)
== END 2018-01-25 11:00 | disposition home or self-care (01) ==
LOC: PHEFT 08:48
DX: J45.909 Unspecified asthma, uncomplicated (principal); F31.9 Bipolar disorder, unspecified; F41.9 Anxiety disorder, unspecified; I10 Essential (primary) hypertension; E78.00 Pure hypercholesterolemia, unspecified; I25.10 Atherosclerotic heart disease of native coronary artery without angina pectoris; E10.9 Type 1 diabetes mellitus without complications; E07.9 Disorder of thyroid, unspecified; Z87.891 Personal history of nicotine dependence
CPT/HCPCS: 94640; 94664; 99283; J7613

== ENCOUNTER 2018-01-27 10:12 | Emergency (ER) | payer MEDICARE, MEDICAID ==
[~2018-01-27] VITALS: Ht 162.6 cm; Wt 73.0 kg
[~2018-01-27 10:12] MED LIST changes: +AZIT250T3 PO; -BACT800T5 PO; +PROMSYP3 PO
[2018-01-27 10:16] VITALS: BP 104/65; PULSE 89; RESP 18; O2SAT 99
[2018-01-27 10:44] VITALS: PULSE 89; RESP 18; TEMP 98.8; O2SAT 99
[2018-01-27 11:03] LABS: AUTOMATED NEUTROPHIL # 4.8 TH/MM3 (1.8-7.7); BASOPHIL # 0.1 TH/MM3 (0-0.2); BASOPHIL % 0.7 % (0.0-2.0); EOSINOPHIL # 0.5 TH/MM3 (0-0.4); EOSINOPHIL % 5.7 % (0.0-4.0); HEMATOCRIT 35.8 % (35.0-46.0); HEMOGLOBIN 11.6 GM/DL (11.6-15.3); LYMPH % 31.3 % (9.0-44.0); LYMPHOCYTE # 2.6 TH/MM3 (1.0-4.8); MEAN CELL VOLUME 85.3 FL (80.0-100.0); MEAN CORPUSCULAR HEMOGLOBIN 27.5 PG (27.0-34.0); MEAN CORPUSCULAR HGB CONC 32.3 % (32.0-36.0); MEAN PLATELET VOLUME 9.3 FL (7.0-11.0); MONO % 5.1 % (0.0-8.0); MONOCYTE # 0.4 TH/MM3 (0-0.9); NEUT % 57.2 % (16.0-70.0); PLATELET COUNT 186 TH/MM3 (150-450); RED CELL DISTRIBUTION WIDTH 14.1 % (11.6-17.2); WHITE BLOOD COUNT 8.4 TH/MM3 (4.0-11.0)
[2018-01-27 11:11] LABS: CHLORIDE 108 MEQ/L (98-107); SODIUM (NA) 137 MEQ/L (136-145)
--- NOTE | 2018-01-27 11:13 | RADRPT ---
EXAM DATE/TIME: 01/27/2018 10:56 [facility] COMPARISON: CHEST SINGLE AP, November 01, 2017, 17:45. INDICATIONS : Cough, short of breath, chest pain with cough MEDICAL HISTORY : Hypercholesterolemia. Hypertension. Gastroesophageal reflux disease. Cerebrovascular accident. [place] artery disease. Asthma. SURGICAL HISTORY : Cholecystectomy. Hysterectomy. Cardiac catheterization. Umbilical hernia repair. ENCOUNTER: Initial ACUITY: 3 weeks PAIN SCORE: 10/10 LOCATION: Bilateral chest FINDINGS: A single view of the chest demonstrates the lungs to be symmetrically aerated without evidence of mas s, infiltrate or effusion. The cardiomediastinal contours are unremarkable. Osseous structures are intact. CONCLUSION: No acute disease. Alvaro Luevano MD FACR on January 27, 2018 at 11:11 Board Certified Radiologist. This report was verified electronically.
[2018-01-27 11:14] LABS: ALBUMIN 3.7 GM/DL (3.4-5.0); BICARBONATE 22.6 MEQ/L (21.0-32.0); CALCIUM 9.2 MG/DL (8.5-10.1)
[2018-01-27 11:15] LABS: BLOOD UREA NITROGEN 27 MG/DL (7-18); GLUCOSE,RANDOM 108 MG/DL (74-106)
[2018-01-27] MEDS ORDERED: RESP: ALBUTEROL 2.5 MG/IPRATROPIUM 0.5 MG NEB (SCH) NEB ONE (11:15)
[2018-01-27 11:18] LABS: ALT (GPT) 47 U/L (10-53); AST (GOT) 31 U/L (15-37); GLOMERULAR FILTRATION RATE 41 ML/MIN (>89)
[2018-01-27 11:19] LABS: TOTAL BILIRUBIN ADULT LESS THAN 0.1 MG/DL (0.2-1.0); TOTAL PROTEIN 7.9 GM/DL (6.4-8.2)
--- NOTE | 2018-01-27 11:19 | PD ---
HPI Chief Complaint: Cold / Flu Symptoms Time Seen by Provider: 11:10 Travel History International Travel<30 days: No Contact w/Intl Traveler<30days: No Traveled to known affect area: No History of Present Illness HPI This patient was seen here 2 days ago diagnosed with bronchitis. She was started on Zithromax. Patient comes back because she is still coughing and not better. She denies fever. She reports history of asthma. She no longer smokes. She has some general malaise. Symptoms moderately severe. No alleviating factors. No exacerbating factors. Duration 4 days. PFSH Past Medical History Arthritis: Yes (JOINTS) Asthma: Yes Autoimmune Disease: No Blood Disorders: No Bipolar Disorder: Yes Anxiety: Yes Depression: Yes Heart Rhythm Problems: No Cancer: No Cardiac Catheterization: Yes Cardiovascular Problems: Yes (htn on meds) High Cholesterol: Yes Chemotherapy: No Chest Pain: No Congestive Heart Failure: No COPD: No Cerebrovascular Accident: Yes (cva) Coronary Artery Disease: Yes Diabetes: Yes (type 1) Patient Takes Glucophage: No Diminished Hearing: No Endocrine: Yes Gastrointestinal Disorders: Yes (GASTROPARESIS) GERD: Yes Genitourinary: No Headaches: Yes (DAILY) Hepatitis: No Hiatal Hernia: Yes Heparin Induced Thrombocytopen: No Hypertension: Yes Immune Disorder: No Implanted Vascular Access Dvce: No Kidney Stones: Yes (PASSED 2, 2 EXTRACTED) Musculoskeletal: Yes Neurologic: Yes Psychiatric: Yes Reproductive: No Respiratory: Yes (asthma) Immunizations Current: Yes (SHINGLES) Migraines: No Myocardial Infarction: No Pneumonia: Yes Radiation Therapy: No Renal Failure: No Seizures: No Sickle Cell Disease: No Sleep Apnea: No Thyroid Disease: Yes Ulcer: No Tetanus Vaccination: < 5 Years ?: Not Menopausal: Yes Past Surgical History Abdominal Surgery: Yes (UMBILICAL HERNIA REPAIR,CHOLECYSTECTOMY) AICD: No Arteriovenous Shunt: No Cardiac Surgery: No Cholecystectomy: Yes Ear Surgery: No Endocrine Surgery: No Eye Surgery: Yes Genitourinary Surgery: Yes (2 KIDNEY STONE EXTRACTIONS) Gynecologic Surgery: Yes (HYSTERECTOMY, bilat cyst removed from breasts) Hysterectomy: Yes Insulin Pump: No Joint Replacement: No Neurologic Surgery: No Oral Surgery: No Pacemaker: No Thoracic Surgery: No Other Surgery: Yes Social History Alcohol Use: No (DENIES) Tobacco Use: No (hx of cigs) Substance Use: No Allergies-Medications (Allergen,Severity, Reaction): Coded Allergies: codeine (Unverified Allergy, Intermediate, HIVES, 01/27/18) prednisone (Unverified Adverse Reaction, Severe, 01/27/18) INCREASES BLOOD GLUCOSE coconut (Verified Adverse Reaction, Intermediate, Diarrhea, 01/27/18) Reported Meds & Prescriptions Reported Meds & Active Scripts Active Promethazine-Dextromethorphan Liq (Dextromethorphan-Promethazine Liq) 6.25-15 Mg /5 Ml Syrp 10 Ml PO Q6HR PRN Azithromycin 250 Mg Tab 250 Mg PO DIRECTED Take 2 tabs (500 mg) on day 1 then 1 tab daily x 4 days. Atrovent HFA 12.9 GM Inh (Ipratropium [place]) 17 Mcg/Actuation Aer 2 Puff INH Q6HR PRN Clonazepam 0.5 Mg Tab 0.5 Mg PO TID PRN Lantus Solostar Pen Inj (Insulin Glargine) 300 Unit/3 Ml Pen 60 Units SQ HS Duloxetine DR (Duloxetine HCl) 20 Mg Capdr 20 Mg PO BID Victoza Inj (Liraglutide Inj) 18 Mg/3 Ml Pen 1.8 Mg SQ DAILY Metoprolol Tartrate 25 Mg Tab 0.5 Tab PO BID Topamax (Topiramate) 50 Mg Tab 50 Mg PO BID Lamotrigine 100 Mg Tab 100 Mg PO DAILY Gabapentin 300 Mg Cap 300 Mg PO TID Levothyroxine (Levothyroxine Sodium) 50 Mcg Tab 50 Mcg PO DAILY Losartan (Losartan Potassium) 50 Mg Tab 50 Mg PO DAILY Pravastatin 20 Mg Tab 20 Mg PO DAILY Aripiprazole 5 Mg Tab 5 Mg PO DAILY Tramadol (Tramadol HCl) 50 Mg Tab 100 Mg PO Q8HR PRN Walker with Front Wheels (Device) 1 Mis Mis 1 Ea .ROUTE DIRECTED Review of Systems General / Constitutional: No: Fever Eyes: No: Visual changes HENT: Positive: Congestion, No: Headaches Cardiovascular: No: Chest Pain or Discomfort Respiratory: Positive: Cough, Shortness of Breath, Wheezing Gastrointestinal: No: Abdominal Pain Genitourinary: No: Dysuria Musculoskeletal: No: Pain Skin: No Rash Neurologic: No: Weakness Psychiatric: No: Depression Endocrine: No: Polydipsia Hematologic/Lymphatic: No: Easy Bruising Physical Exam Narrative GENERAL: Well-nourished, well-developed patient with cough . SKIN: Focused skin assessment reveals no rash and nodules. Skin is Warm and dry. HEAD: Atraumatic. Normocephalic. EYES: Pupils equal and round. No scleral icterus. No injection or drainage. ENT: No nasal bleeding or discharge. Mucous membranes pink and moist. NECK: Trachea midline. No JVD. CARDIOVASCULAR: Regular rate and rhythm. No murmur appreciated. RESPIRATORY: No accessory muscle use. Diffuse expiratory wheezing and rhonchi . Breath sounds equal bilaterally. GASTROINTESTINAL: Abdomen soft, non-tender, nondistended. Hepatic and splenic margins not palpable. MUSCULOSKELETAL: No obvious deformities. No clubbing. No cyanosis. No edema. NEUROLOGICAL: Awake and alert. No obvious cranial nerve deficits. Motor grossly within normal limits. Normal speech. PSYCHIATRIC: Appropriate mood and affect; insight and judgment normal. Data Data Last Documented VS Vital Signs Date Time Temp Pulse Resp B/P (MAP) Pulse Ox O2 Delivery O2 Flow Rate FiO2 01/27/18 10:44 98.8 89 18 99 01/27/18 10:38 Room Air 01/27/18 10:16 104/65 (78) Orders Orders Complete Blood Count With Diff (01/27/18 10:52) Comprehensive Metabolic Panel (01/27/18 10:52) Chest, Single Ap (01/27/18 10:52) Albuterol-Ipratropium Neb (Duoneb Neb) (01/27/18 11:15) Labs Laboratory Tests Test 01/27/18 10:55 White Blood Count 8.4 TH/MM3 Red Blood Count 4.20 MIL/MM3 Hemoglobin 11.6 GM/DL Hematocrit 35.8 % Mean Corpuscular Volume 85.3 FL Mean Corpuscular Hemoglobin 27.5 PG Mean Corpuscular Hemoglobin Concent 32.3 % Red Cell Distribution Width 14.1 % Platelet Count 186 TH/MM3 Mean Platelet Volume 9.3 FL Neutrophils (%) (Auto) 57.2 % Lymphocytes (%) (Auto) 31.3 % Monocytes (%) (Auto) 5.1 % Eosinophils (%) (Auto) 5.7 % Basophils (%) (Auto) 0.7 % Neutrophils # (Auto) 4.8 TH/MM3 Lymphocytes # (Auto) 2.6 TH/MM3 Monocytes # (Auto) 0.4 TH/MM3 Eosinophils # (Auto) 0.5 TH/MM3 Basophils # (Auto) 0.1 TH/MM3 CBC Comment DIFF FINAL Differential Comment Blood Urea Nitrogen 27 MG/DL Creatinine 1.30 MG/DL Random Glucose 108 MG/DL Total Protein 7.9 GM/DL Albumin 3.7 GM/DL Calcium Level 9.2 MG/DL Alkaline Phosphatase 149 U/L Aspartate Amino Transf (AST/SGOT) 31 U/L Alanine Aminotransferase (ALT/SGPT) 47 U/L Total Bilirubin LESS THAN 0.1 MG/DL Sodium Level 137 MEQ/L Potassium Level 4.8 MEQ/L Chloride Level 108 MEQ/L Carbon Dioxide Level 22.6 MEQ/L Anion Gap 6 MEQ/L Estimat Glomerular Filtration Rate 41 ML/MIN MDM Medical Decision Making Medical Screen Exam Complete: Yes Emergency Medical Condition: Yes Medical Record Reviewed: Yes Differential Diagnosis Pneumonia, bronchitis, asthma, COPD Narrative Course I have reviewed the patient's electronic medical record. I reviewed her visit from 2 days ago. IV placed and labs sent I reviewed her chest x-ray which is normal I gave her a series of 3 nebulizer treatments She reports allergy to steroid Lab studies are normal On recheck her lungs are much more clear and she is stable for outpatient follow -up. She does have a breathing inhaler at home. Diagnosis Primary Impression: Bronchitis Additional Impression: COPD (chronic obstructive pulmonary disease) Qualified Codes: J43.9 - Emphysema, unspecified Additional Instructions: The patient was advised to follow up with their physician and return if they worsen. Med/Other Pt SpecificInfo: Other Disposition: 01 DISCHARGE HOME Condition: Stable Reyes Jones MD Jan 27, 2018 11:19
[2018-01-27 11:21] LABS: ALKALINE PHOSPHATASE 149 U/L (45-117)
[2018-01-27 13:12] VITALS: BP 134/76; PULSE 78; RESP 16; O2SAT 97
== END 2018-01-27 13:12 | disposition home or self-care (01) ==
LOC: PHED 10:12
DX: J40 Bronchitis, not specified as acute or chronic (principal); J44.9 Chronic obstructive pulmonary disease, unspecified; J43.9 Emphysema, unspecified; F41.8 Other specified anxiety disorders; I10 Essential (primary) hypertension; E78.00 Pure hypercholesterolemia, unspecified; I25.10 Atherosclerotic heart disease of native coronary artery without angina pectoris; K21.9 Gastro-esophageal reflux disease without esophagitis; Z87.891 Personal history of nicotine dependence; Z87.442 Personal history of urinary calculi; Z88.8 Allergy status to other drugs, medicaments and biological substances; Z88.5 Allergy status to narcotic agent; Z79.4 Long term (current) use of insulin
CPT/HCPCS: 71045; 80053; 85025; 94664; 99281

== ENCOUNTER 2018-02-07 17:44 | Emergency (ER) | payer MEDICARE, MEDICAID ==
[~2018-02-07] VITALS: Ht 162.6 cm; Wt 70.2 kg
[2018-02-07 17:50] VITALS: BP 106/61; PULSE 83; RESP 16; TEMP 98.5; O2SAT 98
--- NOTE | 2018-02-07 18:31 | PD ---
HPI Chief Complaint: Cold / Flu Symptoms Time Seen by Provider: 17:57 Travel History International Travel<30 days: No Contact w/Intl Traveler<30days: No Traveled to known affect area: No History of Present Illness HPI 62-year-old female here with productive cough 1 week. She reports she was treated for bronchitis 3 weeks ago with a Z-Cristopher which she reports improved symptoms but they returned shortly after stopping. Denies fever but reports chills. Reporting green sputum. No chest pain or shortness of breath. Symptom severity is moderate. No aggravating or alleviating factors. PFSH Past Medical History Arthritis: Yes (JOINTS) Asthma: Yes Autoimmune Disease: No Blood Disorders: No Bipolar Disorder: Yes Anxiety: Yes Depression: Yes Heart Rhythm Problems: No Cancer: No Cardiac Catheterization: Yes Cardiovascular Problems: Yes (htn on meds) High Cholesterol: Yes Chemotherapy: No Chest Pain: No Congestive Heart Failure: No COPD: No Cerebrovascular Accident: Yes (cva) Coronary Artery Disease: Yes Diabetes: Yes (type 1) Diminished Hearing: No Endocrine: Yes Gastrointestinal Disorders: Yes (GASTROPARESIS) GERD: Yes Genitourinary: No Headaches: Yes (DAILY) Hepatitis: No Hiatal Hernia: Yes Heparin Induced Thrombocytopen: No Hypertension: Yes Immune Disorder: No Implanted Vascular Access Dvce: No Kidney Stones: Yes (PASSED 2, 2 EXTRACTED) Musculoskeletal: Yes Neurologic: Yes Psychiatric: Yes Reproductive: No Respiratory: Yes (asthma) Immunizations Current: Yes (SHINGLES) Migraines: No Myocardial Infarction: No Pneumonia: Yes Radiation Therapy: No Renal Failure: No Seizures: No Sickle Cell Disease: No Sleep Apnea: No Thyroid Disease: Yes Ulcer: No Menopausal: Yes Past Surgical History Abdominal Surgery: Yes (UMBILICAL HERNIA REPAIR,CHOLECYSTECTOMY) AICD: No Arteriovenous Shunt: No Cardiac Surgery: No Cholecystectomy: Yes Ear Surgery: No Endocrine Surgery: No Eye Surgery: Yes Genitourinary Surgery: Yes (2 KIDNEY STONE EXTRACTIONS) Gynecologic Surgery: Yes (HYSTERECTOMY, bilat cyst removed from breasts) Hysterectomy: Yes Insulin Pump: No Joint Replacement: No Neurologic Surgery: No Oral Surgery: No Pacemaker: No Thoracic Surgery: No Other Surgery: Yes Social History Alcohol Use: No (DENIES) Tobacco Use: No (hx of cigs) Substance Use: No Allergies-Medications (Allergen,Severity, Reaction): Coded Allergies: codeine (Unverified Allergy, Intermediate, HIVES, 02/07/18) prednisone (Unverified Adverse Reaction, Severe, 02/07/18) INCREASES BLOOD GLUCOSE coconut (Verified Adverse Reaction, Intermediate, Diarrhea, 02/07/18) Reported Meds & Prescriptions Reported Meds & Active Scripts Active Atrovent HFA 12.9 GM Inh (Ipratropium [place]) 17 Mcg/Actuation Aer 2 Puff INH Q6HR PRN Clonazepam 0.5 Mg Tab 0.5 Mg PO TID PRN Lantus Solostar Pen Inj (Insulin Glargine) 300 Unit/3 Ml Pen 60 Units SQ HS Duloxetine DR (Duloxetine HCl) 20 Mg Capdr 20 Mg PO BID Victoza Inj (Liraglutide Inj) 18 Mg/3 Ml Pen 1.8 Mg SQ DAILY Metoprolol Tartrate 25 Mg Tab 0.5 Tab PO BID Topamax (Topiramate) 50 Mg Tab 50 Mg PO BID Lamotrigine 100 Mg Tab 100 Mg PO DAILY Gabapentin 300 Mg Cap 300 Mg PO TID Levothyroxine (Levothyroxine Sodium) 50 Mcg Tab 50 Mcg PO DAILY Losartan (Losartan Potassium) 50 Mg Tab 50 Mg PO DAILY Pravastatin 20 Mg Tab 20 Mg PO DAILY Aripiprazole 5 Mg Tab 5 Mg PO DAILY Tramadol (Tramadol HCl) 50 Mg Tab 100 Mg PO Q8HR PRN Walker with Front Wheels (Device) 1 Mis Mis 1 Ea .ROUTE DIRECTED Review of Systems Except as stated in HPI: all other systems reviewed are Neg General / Constitutional: Positive: Chills Eyes: No: Visual changes HENT: No: Headaches Cardiovascular: No: Chest Pain or Discomfort Respiratory: Positive: Cough Gastrointestinal: No: Abdominal Pain Genitourinary: No: Dysuria Musculoskeletal: No: Pain Skin: No Rash Physical Exam Narrative GENERAL: Alert and well-appearing 62-year-old female. SKIN: Warm and dry. HEAD: Normocephalic. EYES: No scleral icterus. No injection or drainage. NECK: Supple, trachea midline. No JVD or lymphadenopathy. CARDIOVASCULAR: Regular rate and rhythm without murmurs, gallops, or rubs. RESPIRATORY: Breath sounds equal bilaterally. No accessory muscle use. Rhonchorous cough. No wheezing GASTROINTESTINAL: Abdomen soft, non-tender, nondistended. MUSCULOSKELETAL: No cyanosis, or edema. BACK: Nontender without obvious deformity. No CVA tenderness. Data Data Last Documented VS Vital Signs Date Time Temp Pulse Resp B/P (MAP) Pulse Ox O2 Delivery O2 Flow Rate FiO2 02/07/18 17:50 98.5 83 16 106/61 (76) 98 Orders Orders Chest, Single Ap (02/07/18 ) MDM Medical Decision Making Medical Screen Exam Complete: Yes Emergency Medical Condition: Yes Differential Diagnosis Pneumonia, bronchitis, COPD Narrative Course This is a 62-year-old female here for evaluation of productive cough for 1 week. This is her third visit in the last month. All charts were reviewed. She is clinically well appearing although has a rhonchorous cough. X-ray is negative for pneumonia. There is no respiratory distress. She has good air movement. vital signs are stable. She will be treated with Levaquin for bronchitis and instructed to follow-up with her primary doctor or senior project manager. Diagnosis Primary Impression: Bronchitis Referrals: Primary Care Physician Social Studies Department Chair Additional Instructions: Medication as directed. Continue using your inhalers as directed. Follow-up with your primary doctor for recheck. Scripts Benzonatate (Tessalon Perles) 100 Mg Cap 200 MG PO TID Y for COUGH, #12 CAP 0 Refills Prov: Lianna Brice 02/07/18 Levofloxacin (Levaquin) 500 Mg Tablet 500 MG PO DAILY for Infection for 7 Days, #7 TAB 0 Refills Prov: Lianna Brice 02/07/18 Disposition: 01 DISCHARGE HOME Condition: Stable Lianna Brice Feb 07, 2018 18:31
--- NOTE | 2018-02-07 18:49 | RADRPT ---
EXAM DATE/TIME: 02/07/2018 18:31 [facility] COMPARISON: No previous studies available for comparison. INDICATIONS : Chest and back pain. MEDICAL HISTORY : Hypercholesterolemia. Hypertension. Gastroesophageal reflux disease. Cerebrovascular accident. [place] artery disease. Asthma. SURGICAL HISTORY : Cholecystectomy. Hysterectomy. Cardiac catheterization. Umbilical hernia repair. ENCOUNTER: [facility] ACUITY: 1 month PAIN SCORE: 7/10 LOCATION: Bilateral chest FINDINGS: A single view of the chest demonstrates the lungs to be symmetrically aerated without evidence of mas s, infiltrate or effusion. The cardiomediastinal contours are unremarkable. Osseous structures are intact. Mild biapical pleural thickening/scarring again noted. CONCLUSION: No evidence of acute cardiopulmonary disease. Emory Simon MD on February 07, 2018 at 18:46 Board Certified Radiologist. This report was verified electronically.
[2018-02-07] MEDS ORDERED: LEVA500T33 PO (18:56)
[2018-02-07] MEDS ORDERED: BENZ100 PO (18:56)
== END 2018-02-07 19:18 | disposition home or self-care (01) ==
LOC: PHEFT 17:44
DX: J40 Bronchitis, not specified as acute or chronic (principal); E07.9 Disorder of thyroid, unspecified; E78.00 Pure hypercholesterolemia, unspecified; I10 Essential (primary) hypertension; E10.43 Type 1 diabetes mellitus with diabetic autonomic (poly)neuropathy; K31.84 Gastroparesis; Z79.4 Long term (current) use of insulin; Z87.891 Personal history of nicotine dependence
CPT/HCPCS: 71045; 99283